=== PATIENT | female | born 1950 | race African-American/Black ===

== ENCOUNTER 2017-02-11 12:53 | Inpatient (IN) | payer OTHER ==
[2017-02-11] MEDS ORDERED: morphine CARPU-JECT 4 MG/1 ML DISP.SYRIN IVPUSH ONE ×3 (13:46→19:00)
[2017-02-11] MEDS ORDERED: morphine CARPU-JECT 4 MG/1 ML DISP.SYRIN ONE ×3 (13:49→19:04)
--- NOTE | 2017-02-11 14:01 | PDOC ---
History of Present Illness - General Chief Complaint: Pain Stated Complaint: HEMATURIA/ABD PAIN/DIARRHEA Time Seen by Provider: 02/11/17 13:06 - History of Present Illness Initial Comments: 02/11/17 14:51 Patient is a 66 year old female with a history of HTN, DM who presents with abdominal pain. Patient reports onset of severe twisting abdominal pain 6 days ago. Since then, she reports worsening pain and abdominal distention. She reports that she last ate solid food 6 days ago and her last solid bowel movement was also 6 days ago. She states that she has been having some diarrhea , but has been only attempting to intake liquids. She also reports some darker colored urine that she was concerned about prompting her visit to the ED today. She endorses some nausea after meals, but denies any fevers, chills, chest pain, SOB, or vomiting. Past History - Past Medical History Allergies/Adverse Reactions: Allergies Allergy/AdvReac Type Severity Reaction Status Date / Time aspirin AdvReac Mild Nausea Unverified 02/11/17 12:59 Penicillins AdvReac Mild Nausea Unverified 02/11/17 12:59 Home Medications: Ambulatory Orders Enalapril Maleate [Vasotec] 20 mg PO DAILY 02/11/17 Hydrochlorothiazide [Hctz -] 25 mg PO DAILY 02/11/17 Metformin HCl 500 mg PO DAILY 02/11/17 Metoprolol Succinate [Toprol Xl -] 25 mg PO DAILY 02/11/17 Diabetes: Yes HTN: Yes - Psycho/Social/Smoking Cessation Hx Suicidal Ideation: No Smoking History: Unknown if ever smoked Information on smoking cessation initiated: No Hx Alcohol Use: No Drug/Substance Use Hx: No Substance Use Type: None Review of Systems - Review of Systems Constitutional: No: Chills, Fever Respiratory: No: Cough, Shortness of Breath Cardiac (ROS): No: Chest Pain, Palpitations, Chest Tightness ABD/GI: Yes: Abdominal Distended, Diarrhea, Nausea, Poor Appetite. No: Rectal Bleeding, Vomiting, Tarry Stools : Yes: Hematuria. No: Dysuria Integumentary: No: Rash Neurological: No: Headache, Numbness, Tingling, Weakness *Physical Exam - Vital Signs Last Vital Signs Temp Pulse Resp BP Pulse Ox 98.2 F 124 H 19 106/42 97 02/11/17 12:57 02/11/17 12:57 02/11/17 12:57 02/11/17 12:57 02/11/17 12:57 - Physical Exam Comments: 02/11/17 15:03 General Appearance: Nourished in Mild Distress HEENT: No Pharyngeal Erythema, Tonsillar Exudate, Tonsillar Erythema Respiratory/Chest: Lungs Clear, Normal Breath Sounds. No Crackles, Rales, Rhonchi, Wheezing Cardiovascular: Regular Rhythm, Regular Rate. No Murmur, Gallop/S3, Gallop/S4 Gastrointestinal/Abdominal: Decreased Bowel Sounds, Distended abdomen with diffuse exquisite tenderness to palpation with guarding Extremity: Normal Capillary Refill Integumentary: Normal Color, Dry, Warm Neurologic: Fully Oriented, Alert, Normal Mood/Affect, Normal Response ED Treatment Course - LABORATORY CBC & Chemistry Diagram: 02/12/17 02:05 02/12/17 02:05 - RADIOLOGY Radiology Studies Ordered: Category Date Time Status ABDOMEN & PELVIS CT WITH CONTR [CT] Stat CT Scan 02/11/17 13:51 Ordered Medical Decision Making - Medical Decision Making 02/11/17 15:04 Patient is a 66 year old female with a history of HTN, DM who presents with abdominal pain and abdominal distention. Differential includes but is not limited to: Obstruction, Illius, Perforation, Pancreatitis, volvulus. Given the patient's physical exam and history of last bowel movement 6 days ago with a distended abdomen, obstruction is high on the differential. However, perforation must be evaluated for as well as volvulus. We will obtain a cbc, cmp, lipase and abdomen CT with contrast to evaluate. Also, given her report of dark urine, we will get a UA to evaluate for hematuria. We will manage the patient's pain appropriately with morphine. 02/11/17 18:51 Patient's cbc demonstrates an elevated wbc to 12.7. We discussed the CT abdomen with the radiologist and it demonstrates free air in the abdomen. We are suspicious that the patient has had a diverticular perforation as the cause of her symptoms. We will consult surgery and admit the patient for treatment. We discussed the results and plan with the patient and she is agreeable to the plan. 02/11/17 18:54 Patient was discussed with surgery (Dr. Villalta) who agrees with admitting the patient and will come to evaluate her. Per Dr. Villalta we placed an NG tube to help with decompression of the bowel and will get films to confirm placement. 02/11/17 18:55 We discussed the patient with Dr. Montero who accepted the patient for admission. *DC/Admit/Observation/Transfer Diagnosis at time of Disposition: Perforation bowel - Discharge Dispostion Condition at time of disposition: Guarded Admit: Yes - Attestations Physician Attestion: 02/11/17 18:56 I, Dr. Umberto Hatfield, attest that this document has been prepared under my direction and personally reviewed by me in its entirety. I further attest, that it accurately reflects all work, treatment, procedures and medical decision -making performed by me.
[2017-02-11 14:16] LABS: MCH 33.1 pg (25.7-33.7); MCHC 33.7 g/dl (32.0-36.0); MEAN CELL VOLUME 98.2 fl (80-96); MEAN PLT VOLUME 8.9 fl (7.5-11.1); PLATELET COUNT 332 K/MM3 (134-434); RDW 15.2 % (11.6-15.6); WHITE BLOOD COUNT 12.8 K/mm3 (4.0-10.0)
[2017-02-11 14:42] LABS: ALBUMIN 2.6 g/dl (3.4-5.0); ALK PHOS 54 U/L (45-117); ANION GAP 14 (8-16); BILIRUBIN,TOTAL 0.6 mg/dL (0.2-1.0); CALCIUM 8.5 mg/dL (8.5-10.1); CO2 24 mmol/L (21-32); CREATININE 1.3 mg/dL (0.55-1.02); GLUCOSE,RANDOM 194 mg/dL (74-106); SGPT/ALT 25 U/L (12-78)
[2017-02-11 14:55] LABS: SGOT/AST 17 U/L (15-37)
[2017-02-11 15:35] LABS: METAMYELOCYTE 1 % (0-2); PLATELET ESTIMATE ADEQUATE (NORMAL)
[2017-02-11] MEDS ORDERED: SODIUM CHLORIDE 0.9% 1000 ML INFUS.BAG IV ONE (15:44)
[2017-02-11] MEDS ORDERED: METRONIDAZOLE 500 MG PREMIXED 100 ML IVPB ONE ×3 (18:15→22:28)
[2017-02-11] MEDS ORDERED: CIPROFLOXACIN 400 MG/D5W 200 ML IVPB ONE (18:15)
[2017-02-11 19:22] LABS: INR 1.29 (0.82-1.09); PROTHROMBIN TIME (PATIENT) 14.3 SEC (9.98-11.88)
[2017-02-11 19:24] LABS: ACTIVATED PTT 29.1 SECONDS (26.9-34.4)
--- NOTE | 2017-02-11 19:26 | PDOC ---
Attending Attestation - Resident Resident Name: AlysiaUmberto - ED Attending Attestation I have performed the following: I have examined & evaluated the patient, The case was reviewed & discussed with the resident, I agree w/resident's findings & plan, Exceptions are as noted - HPI HPI: 02/11/17 19:20 66 yo F with h/o HTN here wtih c/o abd pain x 6 days. also c/o constipation. pain worse with moving. no n/v no blood in stool. no fever chills. no prior abd surgeries. no cough or chest pain. no urinary complaints. - Physicial Exam PE: 02/11/17 19:24 on exam awake alert lungs clear heart RRR no mrg. abd soft distendd. diffusely tender no rebound. ext wwp . no edema. skin warm and dry. - Medical Decision Making 02/11/17 19:24 differential sbo, divertic appy, ulcer, uti pancreaitis. pyleo plan ct a/p labs ua . ivf, pain control ct a/p with free air. likely perf diverticuli d/w dr. rose will admit to dr. hamilton. cirpo and flagyl given . pt inr, type and screen and lactate ordered.
--- NOTE | 2017-02-11 20:19 | CONSULT ---
Consult Consult Specialty:: Surgery Referred by:: Medical and ER - History of Present Illness Chief Complaint: Abdominal pain for one week in lower abdomen. History of Present Illness: C/O lower abdominal pain since last , one week ago. Did not seek medical attention. C/O vomiting as well. She has had colonoscopy about 6 months ago. - History Source History Provided By: Patient, Family Member Limitations to Obtaining History: No Limitations - Past Medical History Cardio/Vascular: Yes: HTN Endocrine: Yes: Diabetes Mellitus - Past Surgical History Past Surgical History: Yes: Hysterectomy - Alcohol/Substance Use Hx Alcohol Use: No - Smoking History Smoking history: Unknown if ever smoked Home Medications - Allergies Allergies/Adverse Reactions: Allergies Allergy/AdvReac Type Severity Reaction Status Date / Time aspirin AdvReac Mild Nausea Unverified 02/11/17 12:59 Penicillins AdvReac Mild Nausea Unverified 02/11/17 12:59 - Home Medications Home Medications: Ambulatory Orders Enalapril Maleate [Vasotec] 20 mg PO DAILY 02/11/17 Hydrochlorothiazide [Hctz -] 25 mg PO DAILY 02/11/17 Metformin HCl 500 mg PO DAILY 02/11/17 Metoprolol Succinate [Toprol Xl -] 25 mg PO DAILY 02/11/17 Physical Exam Vital Signs: Vital Signs Temperature 98.2 F 02/11/17 12:57 Pulse Rate 121 H 02/11/17 14:15 Respiratory Rate 18 02/11/17 14:15 Blood Pressure 99/77 02/11/17 14:15 O2 Sat by Pulse Oximetry (%) 96 02/11/17 14:15 Gastrointestinal: Yes: Abdomen, Obese (Obese abdomen , diffusely tender and guarding with rigidity.) Imaging - Results Cat Scan: Report Reviewed, Image Reviewed Problem List - Problems (1) Perforation bowel Code(s): K63.1 - PERFORATION OF INTESTINE (NONTRAUMATIC) (2) Acute abdomen Code(s): R10.0 - ACUTE ABDOMEN (3) Obesity Code(s): E66.9 - OBESITY, UNSPECIFIED Qualifiers: (4) Diabetes mellitus Code(s): E11.9 - TYPE 2 DIABETES MELLITUS WITHOUT COMPLICATIONS Assessment/Plan Acute perforated diverticulitis with peritonotis. Paln : Hydrate , antibiotics, laparotomy , possible bowel resection , colostomy. Patient and her daughter have been explained , with risks, benefits and complications, also related to her obesity , diabetes. etc
[2017-02-11] MEDS ORDERED: ONDANSETRON 4 MG/2 ML VIAL IVPUSH PRN ×2 (21:24→21:50)
[2017-02-11] MEDS ORDERED: DEXTROSE 5%-0.45% SALINE 1,000 ML IV SCH (21:30)
[2017-02-11 21:46] LABS: URINE APPEARANCE CLOUDY; URINE BLOOD NEGATIVE (NEGATIVE); URINE COLOR AMBER; URINE GLUCOSE (UA) 1+ (NEGATIVE); URINE KETONE TRACE (NEGATIVE); URINE LEUK ESTERASE NEGATIVE (NEGATIVE); URINE NITRITE NEGATIVE (NEGATIVE); URINE UROBILINOGEN NEGATIVE mg/dL (0.2-1.0)
[2017-02-11] MEDS ORDERED: PROMETHAZINE HCL 25 MG/1 ML VIAL IVPUSH PRN (21:50)
[2017-02-11 21:51] LABS: URINE PROTEIN 2+ (NEGATIVE)
[2017-02-11 21:53] LABS: URINE BACTERIA MANY /hpf (NONE SEEN); URINE HYALINE CAST 18 /lpf; URINE MUCUS MANY; URINE RBC 7 /hpf (0-3); URINE WBC 20 /hpf (3-5)
[2017-02-11] MEDS ORDERED: LACTATED RINGERS SOLUTION 1,000 ML IV SCH (22:00)
[2017-02-11] MEDS ORDERED: ROCURONIUM BROMIDE 50 MG/5 ML VIAL ONE (22:11)
[2017-02-11] MEDS ORDERED: LEVOFLOXACIN 500 MG PREMIX BAG IVPB ONE (22:20)
[2017-02-11] MEDS ORDERED: LEVOFLOXACIN 500 MG IVPB 100 ML IVPB ONE (22:26)
[2017-02-12] MEDS ORDERED: ROCURONIUM BROMIDE 50 MG/5 ML VIAL ONE (00:19)
[2017-02-12] MEDS ORDERED: PROPOFOL 100 ML ONE (00:45)
[2017-02-12] MEDS ORDERED: MIDAZOLAM HCL 2 MG/2 ML SINGLE DOSE VIAL ONE (00:51)
[2017-02-12] MEDS ORDERED: ACETAMINOPHEN INJECTION 100 ML IVPB ONE (01:46)
[2017-02-12] MEDS ORDERED: ACETAMINOPHEN 1000 MG/100 ML VIAL (NON FORMULARY) IVPB ONE ×2 (01:50→02:00)
--- NOTE | 2017-02-12 01:55 | OP ---
Operative Note - Note: Operative Date: 02/12/17 Pre-Operative Diagnosis: Peritonitis, acute abdomen, perforated viscus, intraabdominal abscess, sepsis, moebid obesity. Operation: Laparotomy, sigmoid resection , mobilisation of splenic flexure of colon, colorectal anastamosis, transverse loop colostomy,. drainage of multiple intraabdominal abscesses x3, peritoneal washout,. omentectomy , lysis of adhesions. Findings: 1.Perforation of sigmoid colon , 2.with acute diverticulitis, 3.multiple intraabdominal abscesses, , a) interloop abscess bounded by small bowel, b) pelvic abscess, c) posterior abdominal abscess. 4. necrotic and ischemic omentum 5 Peritoneal adhesions. Post-Operative Diagnosis: Other (perforated diverticulitis with multiple intraabdominal absceses, adhesions, edematous intestine, throughout, small intestine, descending colon, multiple adhesions , abdominal obesity.) Surgeon: Luciana Villalta Hiv Counselor: Willow Ivy Anesthesiologist/BURR GRINDER: Tho Metcalf Anesthesia: General Specimens Removed: Sigmoid colon with perforation , necrotic debris of abscess. Estimated Blood Loss (mls): 250
[2017-02-12] MEDS ORDERED: HYDROmorphone HCL CARPU-JECT 1 MG/1 ML DISP.SYRIN IVPUSH PRN (02:02)
[2017-02-12] MEDS ORDERED: LACTATED RINGERS SOLUTION 1,000 ML IV SCH (02:04)
[2017-02-12 02:24] LABS: ARTERIAL BLD GAS O2 SATURATION 99.9 % (90-98.9); ARTERIAL BLOOD GAS BASE EXCESS -3.9 meq/l (-2-2); ARTERIAL BLOOD GAS HCO3 22.5 meq/L (22-26); ARTERIAL BLOOD GAS pH 7.28 (7.35-7.45)
[2017-02-12 02:26] LABS: ALLENS TEST POSITIVE; ART PUNCT SITE RIGHT RADIAL; LPM/O2% 100%; MECH. VENT. Y; PT. ON O2? YES; TYPE OF O2 VENT; VENT RATE 10; VT/PRESS 500
[2017-02-12 02:30] LABS: MCH 32.6 pg (25.7-33.7); MEAN CELL VOLUME 98.8 fl (80-96); MEAN PLT VOLUME 9.1 fl (7.5-11.1); RDW 15.1 % (11.6-15.6); WHITE BLOOD COUNT 8.7 K/mm3 (4.0-10.0)
--- NOTE | 2017-02-12 02:30 | CONSULT ---
Consult Consult Specialty:: PULM / CCM Referred by:: Dr. Neida Montero Reason for Consultation:: Abd Sepsis - History of Present Illness Chief Complaint: Bowel Perf History of Present Illness: BRIEF ICU ADMIT NOTE: (ALL HANDS WRKNG): This is a 66 y/o woman, HTN, DMII, Et-OH, & tobacc who arrives in the ICU @ 0230Hrs this AM (ED --> OR --> ICU) s/p emergent abd surgery for bowel perf (Villalta ) ( limited data). Pt is intubated, in shock, requiring full Post-Op resuscitation. - History Source History Provided By: Medical Record Limitations to Obtaining History: Intubated - Past Medical History Cardio/Vascular: Yes: HTN Endocrine: Yes: Diabetes Mellitus - Past Surgical History Past Surgical History: Yes: Hysterectomy - Alcohol/Substance Use Hx Alcohol Use: Yes Number of Drinks Daily: 3 History of Substance Use: reports: None - Smoking History Smoking history: Current every day smoker Have you smoked in the past 12 months: Yes - Social History Usual Living Arrangement: Alone ADL: Independent History of Recent Travel: No Home Medications - Allergies Allergies/Adverse Reactions: Allergies Allergy/AdvReac Type Severity Reaction Status Date / Time aspirin AdvReac Mild Nausea Unverified 02/11/17 12:59 Penicillins AdvReac Mild Nausea Unverified 02/11/17 12:59 - Home Medications Home Medications: Ambulatory Orders Enalapril Maleate [Vasotec] 20 mg PO DAILY 02/11/17 Hydrochlorothiazide [Hctz -] 25 mg PO DAILY 02/11/17 Metformin HCl 500 mg PO DAILY 02/11/17 Metoprolol Succinate [Toprol Xl -] 25 mg PO DAILY 02/11/17 Family Disease History - Family Disease History Family History: Unable to Obtain (Sedated & intubated.) Review of Systems Unable to obtain ROS, reason: Sedated & intubated. Physical Exam Vital Signs: Vital Signs Temperature 98.2 F 02/11/17 12:57 Pulse Rate 121 H 02/11/17 14:15 Respiratory Rate 13 02/12/17 02:24 Blood Pressure 99/77 02/11/17 14:15 O2 Sat by Pulse Oximetry (%) 96 02/11/17 14:15 Constitutional: Yes: Well Nourished, No Distress, Calm Eyes: Yes: WNL, Conjunctiva Clear, EOM Intact HENT: Yes: WNL, Atraumatic, Normocephalic Neck: Yes: WNL, Supple, Trachea Midline Cardiovascular: Yes: WNL, Regular Rate and Rhythm Respiratory: Yes: WNL, Regular, CTA Bilaterally Gastrointestinal: Yes: Abdomen, Obese, Distention, Hypoactive Bowel Sounds, Tenderness, Tenderness, Epigastrium, Tenderness, Rebound, Other (s/p Ex-Lap w/ R UQ colostomy. Colostomy looks pink & healthy.) ...Rectal Exam: Yes: Deferred Renal/: Yes: WNL Breast(s): Yes: WNL Musculoskeletal: Yes: WNL Extremities: Yes: WNL Edema: Yes Edema: LUE: 2+, RUE: 2+, LLE: 2+, RLE: 2+ Peripheral Pulses WNL: Yes Integumentary: Yes: WNL Wound/Incision: Yes: Clean/Dry, Well Approximated, Sutures Intact, [place] Intact, Dressing Dry and Intact Neurological: Yes: Unresponsive ...Motor Strength: WNL Psychiatric: Yes: WNL, Oriented Labs: CBC, BMP 02/12/17 02:05 02/12/17 02:05 Intake & Output 02/09/17 02/10/17 02/11/17 02/12/17 23:59 23:59 23:59 23:59 Intake Total 6000 Output Total 400 100 Balance 5600 -100 Weight 83.915 kg 85.6 kg Imaging - Results Chest X-ray: Image Reviewed (ETT in good position, no PTX, clear (My Read).) EKG: Image Reviewed (12-LEAD 02/11: RSR in the 1-teens w/o ectopy, normal axis, no ST or T-wave aberrations, QTc = 493ms, no acute processes (My Read).) Problem List - Problems (1) Acute abdomen Code(s): R10.0 - ACUTE ABDOMEN (2) Diabetes mellitus Code(s): E11.9 - TYPE 2 DIABETES MELLITUS WITHOUT COMPLICATIONS (3) Obesity Code(s): E66.9 - OBESITY, UNSPECIFIED Qualifiers: Obesity type: due to excess calories (4) Perforation bowel Code(s): K63.1 - PERFORATION OF INTESTINE (NONTRAUMATIC) (5) Septic shock Code(s): A41.9 - SEPSIS, UNSPECIFIED ORGANISM R65.21 - SEVERE SEPSIS WITH SEPTIC SHOCK Assessment/Plan ASSESS: This is a 66 y/o woman w/ HTN, DM, Et-OH, & Tobacc s/p emergent Abd Surgery for surgical Abd in the ED Ex-Lap remark for perforated viscus, drainage of multiple intra-abd abscesses, sigmoid resect, colorectal anastamosis , & transverse loop colostomy. Pt presents to the ICU now Pos-Op in imminent Severe Abd Sepsis. A/P OR TEAM: multiple intra-abd abscesses have just been instrumented PREPARE FOR SEVERE SEPTIC SHOCK DO NOT WAKE UP DO NOT EXTUBATE WAIT FOR CRITICAL CARE ATTENDING PHYSICIAN PLAN: -NPO -Cont Vent -Deep sedation -DO NOT EXTUBATE until out of shock -HOB > 30 -Nebs -Abd Sepsis Abx -F/U Clxrs -ID -CVC -IVFs for a CVP of 14 on the Vent -Press for a MAP of 65 -Trend LA -Normal Transfusion thresholds -Check bladder pressure -Strict I's & O's -Trend BUN/Cr -Replete e-lytes prn -Pepcid -SQH -SCDs -F/u w/ Surgery -Call Family, secure Goals of Care DGL [id number] [facility] PULM / CCM
[2017-02-12] MEDS ORDERED: PROPOFOL 1000 MG/100 ML VIAL IVPB ONE (02:37)
[2017-02-12 02:59] LABS: ALBUMIN 1.4 g/dl (3.4-5.0); ALK PHOS 37 U/L (45-117); ANION GAP 9 (8-16); BILIRUBIN,TOTAL 0.6 mg/dL (0.2-1.0); CALCIUM 7.1 mg/dL (8.5-10.1); CO2 26 mmol/L (21-32); CREATININE 1.3 mg/dL (0.55-1.02); GLUCOSE,RANDOM 164 mg/dL (74-106); SGOT/AST 20 U/L (15-37); SGPT/ALT 16 U/L (12-78); TOT PROT 4.1 g/dl (6.4-8.2)
[2017-02-12 03:20] LABS: PLATELET COUNT 339 K/MM3 (134-434)
[2017-02-12 03:21] LABS: METAMYELOCYTE 3 % (0-2); PLATELET COMMENT2 MOD LARGE PLTS; PLATELET COMMENT3 FEW GIANT PLTS; PLATELET ESTIMATE ADEQUATE (NORMAL)
[2017-02-12] MEDS ORDERED: SODIUM CHLORIDE 1,000 ML IV SCH (03:30)
[2017-02-12 03:51] VITALS: BMI 28.7
[2017-02-12] MEDS: PROPOFOL 100 ML IVPB SCH ×4 (03:56→21:55)
[2017-02-12] MEDS: METRONIDAZOLE 500 MG PREMIXED 100 ML IVPB SCH ×2 (03:59→09:32)
[2017-02-12] MEDS ORDERED: LACTATED RINGERS SOLUTION 1,000 ML IV ONE ×3 (04:00→06:00)
[2017-02-12] MEDS ORDERED: NOREPINEPHRINE BITARTRATE 4 MG/4 ML ML IV ONE (05:49)
--- NOTE | 2017-02-12 06:17 | PROC ---
Central Line Insertion Indication: CVP Monitoring, Sepsis, Vasopressor Risks and Benefits Explained: Yes Consent on Chart: Yes Central Line: Triple Lumen Catheter Anesthesia: 1% Lidocaine Sterile Technique: Yes Ultrasound Guided Assistance: Yes Position: Left Internal Jugular Post Insertion: Yes: Bilateral Breath Sounds, Chest X-Ray Ordered Sterile Dressing Applied: Yes
[2017-02-12] MEDS ORDERED: VANCOMYCIN 1,250 MG in DEXTROSE 5%-WATER - 250 ML IVPB STA (06:26)
[2017-02-12] MEDS: NOREPINEPHRINE BITARTRATE 4,000 MCG in DEXTROSE 5%-WATER - 496 ML IV SCH (06:54)
[2017-02-12 07:12] LABS: BASOPHIL 0.1 % (0-2.0); MCH 33.3 pg (25.7-33.7); MCHC 33.7 g/dl (32.0-36.0); MEAN CELL VOLUME 98.9 fl (80-96); MEAN PLT VOLUME 9.3 fl (7.5-11.1); NEUTROPHILS 88.2 % (42.8-82.8); PLATELET COUNT 317 K/MM3 (134-434); RDW 14.8 % (11.6-15.6); WHITE BLOOD COUNT 9.2 K/mm3 (4.0-10.0)
[2017-02-12 07:54] LABS: ALBUMIN 1.1 g/dl (3.4-5.0); ALK PHOS 28 U/L (45-117); ANION GAP 9 (8-16); BILIRUBIN,TOTAL 0.9 mg/dL (0.2-1.0); CO2 22 mmol/L (21-32); CREATININE 0.8 mg/dL (0.55-1.02); GLUCOSE,RANDOM 148 mg/dL (74-106); SGOT/AST 16 U/L (15-37); SGPT/ALT 14 U/L (12-78); TOT PROT 3.4 g/dl (6.4-8.2)
[2017-02-12 08:20] LABS: MAGNESIUM 2.3 mg/dL (1.8-2.4)
[2017-02-12 08:26] LABS: CALCIUM 6.1 mg/dL (8.5-10.1)
[2017-02-12 08:35] LABS: ARTERIAL BLD GAS O2 SATURATION 99.2 % (90-98.9); ARTERIAL BLOOD GAS BASE EXCESS -4.7 meq/l (-2-2); ARTERIAL BLOOD GAS HCO3 18.7 meq/L (22-26); ARTERIAL BLOOD GAS pH 7.39 (7.35-7.45)
[2017-02-12 08:36] LABS: ALLENS TEST POSITIVE; ART PUNCT SITE RIGHT RADIAL; LPM/O2% 50; MECH. VENT. YES; PT. ON O2? YES; TYPE OF O2 VENT; VENT RATE 14; VT/PRESS 500
--- NOTE | 2017-02-12 09:12 | PN ---
Physical Exam: SUBJECTIVE: 65 year old female with a past medical history of HTN, DMII presented to the ED with abdominal pain x6 day duration. She reported progressive distention and minimal bowel movements as well as nausea after meals. CT abdomen showed free air in the abdomen. She was diagnosed with bowel perforation 2/2 acute diverticulitis and sent to the OR under Dr. Villalta for an exploratory laporatomy. A sigmoid resection was performed as well as drainage of multiple intraabdominal abscesses. Pt was sent to ICU at 2:30am post op. Pt was hypotensive, a central line was placed and levophed was started. MAP has been 78 -81. Pt is sedated and is unarousable for questions. OBJECTIVE: Vital Signs Period Temp Pulse Resp BP Sys/[place] Pulse Ox Last 24 Hr 97.6 F-98.7 F 78-102 10-19 71-165/47-102 100-100 GENERAL: The patient is sedated, unarousable, and breathing on vent HEAD: Normal with no signs of trauma. EYES: PERRL, extraocular movements unable to be assessed sclera anicteric, conjunctiva clear. No ptosis. ENT: Ears normal, nares patent, Endotracheal tube present membranes. NECK: Trachea midline, full range of motion, supple. LUNGS: Breath sounds equal, pt is intubated breathing on vent HEART: Regular rate and rhythm, S1, S2 without murmur, rub or gallop. ABDOMEN: mildly distended, hypoactive bowel sounds, surgical dressing is noted over incision site EXTREMITIES: 2+ pulses, cool extremities NEUROLOGICAL: Cranial nerves II through XII unable to be assessed PSYCH: unable to assess SKIN: cool extremities, dry, normal turgor, no rashes, surgical scar present in the mid abdomen Laboratory Results - last 24 hr 02/11/17 02/12/17 02/12/17 21:32 02:05 02:05 WBC 8.7 D RBC 4.22 Hgb 13.7 Hct 41.6 MCV 98.8 H MCH 32.6 MCHC 33.0 RDW 15.1 Plt Count 339 MPV 9.1 Neutrophils % 65.0 D Lymphocytes % 12.0 D Monocytes % 10.0 Eosinophils % Basophils % Band Neutrophils 10.0 D Metamyelocytes 3 H D Platelet Estimate Adequate Platelet Comment Mod large plts Puncture Site ABG pH ABG pCO2 at Pt Temp ABG pO2 at Pt Temp ABG HCO3 ABG O2 Sat (Measured) ABG O2 Content ABG Base Excess Cole Test O2 Delivery Device Oxygen Flow Rate Vent Mode Vent Rate Mechanical Rate PEEP Pressure Support Vent Sodium 134 L Potassium 4.3 Chloride 99 Carbon Dioxide 26 Anion Gap 9 BUN 21 H Creatinine 1.3 H Creat Clearance w eGFR 41.11 Random Glucose 164 H Calcium 7.1 L Phosphorus Magnesium Total Bilirubin 0.6 AST 20 ALT 16 D Alkaline Phosphatase 37 L D Total Protein 4.1 L D Albumin 1.4 L D Urine Color Delia Urine Appearance Cloudy Urine pH 5.0 Urine Protein 2+ H Urine Glucose (UA) 1+ H Urine Ketones Trace H Urine Blood Negative Urine Nitrite Negative Urine Bilirubin 2.0 Urine Urobilinogen Negative Ur Leukocyte Esterase Negative Urine RBC 7 Urine WBC 20 Ur Epithelial Cells Many Urine Bacteria Many Hyaline Casts 18 Urine Mucus Many 02/12/17 02/12/17 02/12/17 02:20 06:00 06:00 WBC 9.2 RBC 3.36 L D Hgb 11.2 D Hct 33.3 D MCV 98.9 H MCH 33.3 MCHC 33.7 RDW 14.8 Plt Count 317 MPV 9.3 Neutrophils % 88.2 H D Lymphocytes % 5.1 L D Monocytes % 6.6 Eosinophils % 0.0 Basophils % 0.1 Band Neutrophils Metamyelocytes Platelet Estimate Platelet Comment Puncture Site Right radial ABG pH 7.28 L ABG pCO2 at Pt Temp 49.0 H ABG pO2 at Pt Temp 408.0 H* ABG HCO3 22.5 ABG O2 Sat (Measured) 99.9 H* ABG O2 Content 18.6 ABG Base Excess -3.9 L Cole Test Positive O2 Delivery Device Vent Oxygen Flow Rate 100% Vent Mode Ac Vent Rate 10 Mechanical Rate Y PEEP Pressure Support Vent 500 Sodium 137 Potassium 3.6 Chloride 106 Carbon Dioxide 22 Anion Gap 9 BUN 17 Creatinine 0.8 D Creat Clearance w eGFR > 60 Random Glucose 148 H Calcium 6.1 L* Phosphorus 3.0 Magnesium 2.3 Total Bilirubin 0.9 D AST 16 ALT 14 Alkaline Phosphatase 28 L D Total Protein 3.4 L Albumin 1.1 L D Urine Color Urine Appearance Urine pH Urine Protein Urine Glucose (UA) Urine Ketones Urine Blood Urine Nitrite Urine Bilirubin Urine Urobilinogen Ur Leukocyte Esterase Urine RBC Urine WBC Ur Epithelial Cells Urine Bacteria Hyaline Casts Urine Mucus 02/12/17 08:20 WBC RBC Hgb Hct MCV MCH MCHC RDW Plt Count MPV Neutrophils % Lymphocytes % Monocytes % Eosinophils % Basophils % Band Neutrophils Metamyelocytes Platelet Estimate Platelet Comment Puncture Site Right radial ABG pH 7.39 ABG pCO2 at Pt Temp 31.4 L D ABG pO2 at Pt Temp 165.0 H* ABG HCO3 18.7 L ABG O2 Sat (Measured) 99.2 H ABG O2 Content 19.6 ABG Base Excess -4.7 L Cole Test Positive O2 Delivery Device Vent Oxygen Flow Rate 50 Vent Mode A/c Vent Rate 14 Mechanical Rate Yes PEEP 0.0 Pressure Support Vent 500 Sodium Potassium Chloride Carbon Dioxide Anion Gap BUN Creatinine Creat Clearance w eGFR Random Glucose Calcium Phosphorus Magnesium Total Bilirubin AST ALT Alkaline Phosphatase Total Protein Albumin Urine Color Urine Appearance Urine pH Urine Protein Urine Glucose (UA) Urine Ketones Urine Blood Urine Nitrite Urine Bilirubin Urine Urobilinogen Ur Leukocyte Esterase Urine RBC Urine WBC Ur Epithelial Cells Urine Bacteria Hyaline Casts Urine Mucus Active Medications Generic Name Dose Route Start Last Admin Trade Name Freq PRN Reason Stop Dose Admin Fentanyl 50 mcg 02/11/17 21:50 02/12/17 03:57 Sublimaze Injection - IVPUSH 02/14/17 21:51 50 mcg [id number] PRN Administration PAIN Fentanyl 100 mcg 02/12/17 08:22 Sublimaze Injection - IVPUSH 02/12/17 08:23 ONCE ONE Hydromorphone HCl 1 mg 02/12/17 02:02 Dilaudid Injection - IVPUSH Q4H PRN PAIN Metronidazole 100 mls @ 100 mls/hr 02/12/17 02:00 02/12/17 03:59 Flagyl 500mg Premixed Ivpb - IVPB 100 mls/hr Q8H-IV RAF Administration Levofloxacin 100 mls @ 100 mls/hr 02/12/17 10:00 Levaquin 500 Mg Premixed Ivpb - IVPB DAILY RAF Propofol 100 mls @ 2.517 mls/hr 02/12/17 02:00 02/12/17 03:56 Diprivan - IVPB 02/14/17 01:59 15.105 mls/hr TITR RAF Administration Protocol 5 MCG/KG/MIN Sodium Chloride 1,000 mls @ 150 mls/hr 02/12/17 03:30 02/12/17 03:00 Normal Saline - IV 150 mls/hr ASDIR RAF Administration Norepinephrine Bitartrate 4, 500 mls @ 37.5 mls/hr 02/12/17 06:30 02/12/17 06: 54 000 mcg/ Dextrose IV 66 mls/hr TITR RAF Administration Protocol 5 MCG/MIN Fentanyl 500 mcg/ Dextrose 100 mls @ 20 mls/hr 02/12/17 06:30 IJ TITR RAF 100 MCG/HR Potassium Chloride 100 mls @ 100 mls/hr 02/12/17 09:00 Potassium Chloride 10 Meq Premix Ivpb - IVPB 02/12/17 11:59 Q60M RAF Insulin Aspart 1 vial 02/11/17 22:00 Novolog Vial Sliding Scale - SQ ACHS RAF Protocol Morphine Sulfate 4 mg 02/11/17 21:24 Morphine Injection - IVPUSH Q6H PRN PAIN Ondansetron HCl 4 mg 02/11/17 21:24 Zofran Injection IVPUSH Q6H PRN NAUSEA AND/OR VOMITING Imaging: CT Abd (02/11): acute diverticulitis in mid sigmoid colon w/ perforation and extraluminal air collection along its medial margin measuring 5cm with a small air fluid level. Significant amount of free air in upper abdomen and scattered extraluminal air pockets. Significant surrounding inflammatory changes/ mesenteric edema extending to the mid-abdomen with a small amount of free fluid. Proximal bowel loops are slightly dilated suggestive of a possible partial small bowel obstruction CXR (02/12): NG tube and ET tube are in place, no pneumothorax. ASSESSMENT/PLAN: 66 year old female pmh HTN and DMII s/p exploratory laparotomy with sigmoid resection and drainage of multiple abdominal abscesses in the ICU with hypotension, SOB. Neuro: pt s/p surgery on sedation -continue propofol 40 for sedation -continue zofran PRN -fentanyl PRN pain Cardiovascular: Pt with a hx of diabetes and HTN, currently normotensive with a MAP of 85 on levophed -continue levophed -change fluids to D5NS w/ potassium -measure CVP -trend lactic acid Pulmonary: acute respiratory failure, pt on vent - pt is a smoker -decrease FiO2, keep other vent settings Gastrointestinal: pt s/p exploratory laparotomy for bowel perforation and multiple abscess drainage with sigmoid resection and transverse loop colostomy -NPO -f/u with dr. Villalta ID: suspected sepsis -continue abx as per ID FEN: -change fluids to D5NS w/ potassium @ 100 -strict I's and O's -NPO Proph: -VTE prophylaxis Dispo: -continue to monitor in the ICU Problem List - Problems (1) Perforation bowel Code(s): K63.1 - PERFORATION OF INTESTINE (NONTRAUMATIC) (2) Septic shock Code(s): A41.9 - SEPSIS, UNSPECIFIED ORGANISM R65.21 - SEVERE SEPSIS WITH SEPTIC SHOCK Visit type - Emergency Visit Emergency Visit: No - New Patient This patient is new to me today: Yes Date on this admission: 02/12/17 - Critical Care Critical Care patient: Yes Total Critical Care Time (in minutes): 45 Critical Care Statement: The care of this patient involved high complexity decision making to prevent further life threatening deterioration of the patient 's condition and/or to evalute & treat vital organ system(s) failure or risk of failure.
[2017-02-12] MEDS: FENTANYL INJECTION 500 MCG in DEXTROSE 5%-WATER - 90 ML IJ SCH ×5 (09:37→21:50)
[2017-02-12] MEDS ORDERED: LEVOFLOXACIN 500 MG IVPB 100 ML IVPB SCH (10:00)
--- NOTE | 2017-02-12 10:01 | EKG ---
Test Reason : Blood Pressure : / mmHG Vent. Rate : 083 BPM Atrial Rate : 083 BPM P-R Int : 150 ms QRS Dur : 076 ms QT Int : 466 ms P-R-T Axes : 062 000 038 degrees QTc Int : 547 ms NORMAL SINUS RHYTHM PROLONGED QT ABNORMAL ECG WHEN COMPARED WITH ECG OF 11-FEB-2017 20:49, NO SIGNIFICANT CHANGE WAS FOUND Confirmed by CATHY VASQUEZ MD ([id number]) on 02/12/2017 10:01:30 AM Referred By: Confirmed By:CATHY VASQUEZ MD
[2017-02-12] MEDS: KCL 10 MEQ IVPB 100 ML IVPB SCH ×3 (10:15→14:00)
--- NOTE | 2017-02-12 10:22 | EKG ---
Test Reason : Blood Pressure : / mmHG Vent. Rate : 114 BPM Atrial Rate : 114 BPM P-R Int : 154 ms QRS Dur : 084 ms QT Int : 358 ms P-R-T Axes : -02 -09 050 degrees QTc Int : 493 ms SINUS TACHYCARDIA NONSPECIFIC ST ABNORMALITY INCOMPLETE RBBB Confirmed by CATHY VASQUEZ MD ([id number]) on 02/12/2017 10:22:34 AM Referred By: Confirmed By:CATHY VASQUEZ MD
--- NOTE | 2017-02-12 11:55 | PN ---
Teaching Attending Note Name of Resident: Melchor Merrill ATTENDING PHYSICIAN STATEMENT I saw and evaluated the patient. I reviewed the resident's note and discussed the case with the resident. I agree with the resident's findings and plan as documented. SUBJECTIVE: Patient seen and examined in the ICU. Intubated and sedated. NE for hemodynamic support. CXR: ETT in position / no acute pathology Intake & Output 02/09/17 02/10/17 02/11/17 02/12/17 23:59 23:59 23:59 23:59 Intake Total 6000 3720 Output Total 400 100 Balance 5600 3620 Weight 185 lb 188 lb 11.451 oz Last Vital Signs Temp Pulse Resp BP Pulse Ox 97.6 F 83 18 91/74 99 02/12/17 06:00 02/12/17 10:53 02/12/17 09:20 02/12/17 07:00 02/12/17 10:53 Active Medications Metronidazole (Flagyl 500mg Premixed Ivpb -) 100 mls @ 100 mls/hr IVPB Q8H-IV RAF Last Admin: 02/12/17 09:32 Dose: 100 mls/hr Levofloxacin (Levaquin 500 Mg Premixed Ivpb -) 100 mls @ 100 mls/hr IVPB DAILY RAF Last Admin: 02/12/17 09:33 Dose: 100 mls/hr Propofol (Diprivan -) 100 mls @ 2.517 mls/hr IVPB TITR RAF; 5 MCG/KG/MIN PRN Reason: Protocol Stop: 02/14/17 01:59 Last Admin: 02/12/17 03:56 Dose: 15.105 mls/hr Norepinephrine Bitartrate 4, (000 mcg/ Dextrose) 500 mls @ 37.5 mls/hr IV TITR RAF; 5 MCG/MIN PRN Reason: Protocol Last Admin: 02/12/17 06:54 Dose: 66 mls/hr Fentanyl 500 mcg/ Dextrose 100 mls @ 20 mls/hr IJ TITR RAF PRN Reason: 100 MCG/HR Last Admin: 02/12/17 09:37 Dose: 20 mls/hr Potassium Chloride (Potassium Chloride 10 Meq Premix Ivpb -) 100 mls @ 100 mls/ hr IVPB Q60M RAF Stop: 02/12/17 12:59 Last Admin: 02/12/17 10:15 Dose: 100 mls/hr Potassium Chloride 10 meq/ (Dextrose/Sodium Chloride) 1,005 mls @ 100 mls/hr IVPB ASDIR RAF Insulin Aspart (Novolog Vial Sliding Scale -) 1 vial SQ ACHS RAF PRN Reason: Protocol Morphine Sulfate (Morphine Injection -) 4 mg IVPUSH Q6H PRN PRN Reason: PAIN Ondansetron HCl (Zofran Injection) 4 mg IVPUSH Q6H PRN PRN Reason: NAUSEA AND/OR VOMITING Constitutional: Yes: Intubated and sedated. Eyes: Yes: WNL, Conjunctiva Clear, EOM Intact HENT: Yes: WNL, Atraumatic, Normocephalic Neck: Yes: WNL, Supple, Trachea Midline Cardiovascular: Yes: WNL, Regular Rate and Rhythm Respiratory: Yes: WNL, Regular, CTA Bilaterally Gastrointestinal: Yes: Abdomen, Obese, Distention, Hypoactive Bowel Sounds, S/P Ex-Lap w/ RUQ colostomy. Colostomy looks pink & healthy. ...Rectal Exam: Yes: Deferred Renal/: Yes: WNL Breast(s): Yes: WNL Musculoskeletal: Yes: WNL Extremities: Yes: WNL Edema: Yes Edema: LUE: 2+, RUE: 2+, LLE: 2+, RLE: 2+ Peripheral Pulses WNL: Yes Integumentary: Yes: WNL Wound/Incision: Yes: Clean/Dry, Well Approximated, Sutures Intact, [place] Intact, Dressing Dry and Intact Neurological: Yes: Unresponsive ...Motor Strength: WNL Psychiatric: Yes: WNL, Oriented Labs: Laboratory Results - last 24 hr 02/11/17 02/11/17 02/11/17 14:00 14:00 18:52 WBC 12.8 H RBC 4.41 Hgb 14.6 Hct 43.3 MCV 98.2 H MCH 33.1 MCHC 33.7 RDW 15.2 Plt Count 332 MPV 8.9 Neutrophils % 82.0 Lymphocytes % 4.0 L Monocytes % 8.0 Eosinophils % Basophils % Band Neutrophils 4.0 Metamyelocytes 1 Myelocytes 1 Differential Comment Manual diff done Platelet Estimate Adequate Platelet Comment INR 1.29 H PTT (Actin FS) 29.1 Puncture Site ABG pH ABG pCO2 at Pt Temp ABG pO2 at Pt Temp ABG HCO3 ABG O2 Sat (Measured) ABG O2 Content ABG Base Excess Cole Test O2 Delivery Device Oxygen Flow Rate Vent Mode Vent Rate Mechanical Rate PEEP Pressure Support Vent Sodium 134 L Potassium 3.6 Chloride 96 L Carbon Dioxide 24 Anion Gap 14 BUN 21 H Creatinine 1.3 H Creat Clearance w eGFR 41.11 Random Glucose 194 H Lactic Acid Calcium 8.5 Phosphorus Magnesium Total Bilirubin 0.6 AST 17 ALT 25 Alkaline Phosphatase 54 Total Protein 7.0 Albumin 2.6 L Lipase 50 L Urine Color Urine Appearance Urine pH Urine Protein Urine Glucose (UA) Urine Ketones Urine Blood Urine Nitrite Urine Bilirubin Urine Urobilinogen Ur Leukocyte Esterase Urine RBC Urine WBC Ur Epithelial Cells Urine Bacteria Hyaline Casts Urine Mucus Blood Type Antibody Screen 02/11/17 02/11/17 02/11/17 18:52 18:52 21:32 WBC RBC Hgb Hct MCV MCH MCHC RDW Plt Count MPV Neutrophils % Lymphocytes % Monocytes % Eosinophils % Basophils % Band Neutrophils Metamyelocytes Myelocytes Differential Comment Platelet Estimate Platelet Comment INR PTT (Actin FS) Puncture Site ABG pH ABG pCO2 at Pt Temp ABG pO2 at Pt Temp ABG HCO3 ABG O2 Sat (Measured) ABG O2 Content ABG Base Excess Cole Test O2 Delivery Device Oxygen Flow Rate Vent Mode Vent Rate Mechanical Rate PEEP Pressure Support Vent Sodium Potassium Chloride Carbon Dioxide Anion Gap BUN Creatinine Creat Clearance w eGFR Random Glucose Lactic Acid 1.7 Calcium Phosphorus Magnesium Total Bilirubin AST ALT Alkaline Phosphatase Total Protein Albumin Lipase Urine Color Delia Urine Appearance Cloudy Urine pH 5.0 Urine Protein 2+ H Urine Glucose (UA) 1+ H Urine Ketones Trace H Urine Blood Negative Urine Nitrite Negative Urine Bilirubin 2.0 Urine Urobilinogen Negative Ur Leukocyte Esterase Negative Urine RBC 7 Urine WBC 20 Ur Epithelial Cells Many Urine Bacteria Many Hyaline Casts 18 Urine Mucus Many Blood Type B POSITIVE Antibody Screen Negative 02/12/17 02/12/17 02/12/17 02:05 02:05 02:20 WBC 8.7 D RBC 4.22 Hgb 13.7 Hct 41.6 MCV 98.8 H MCH 32.6 MCHC 33.0 RDW 15.1 Plt Count 339 MPV 9.1 Neutrophils % 65.0 D Lymphocytes % 12.0 D Monocytes % 10.0 Eosinophils % Basophils % Band Neutrophils 10.0 D Metamyelocytes 3 H D Myelocytes Differential Comment Platelet Estimate Adequate Platelet Comment Mod large plts INR PTT (Actin FS) Puncture Site Right radial ABG pH 7.28 L ABG pCO2 at Pt Temp 49.0 H ABG pO2 at Pt Temp 408.0 H* ABG HCO3 22.5 ABG O2 Sat (Measured) 99.9 H* ABG O2 Content 18.6 ABG Base Excess -3.9 L Cole Test Positive O2 Delivery Device Vent Oxygen Flow Rate 100% Vent Mode Ac Vent Rate 10 Mechanical Rate Y PEEP Pressure Support Vent 500 Sodium 134 L Potassium 4.3 Chloride 99 Carbon Dioxide 26 Anion Gap 9 BUN 21 H Creatinine 1.3 H Creat Clearance w eGFR 41.11 Random Glucose 164 H Lactic Acid Calcium 7.1 L Phosphorus Magnesium Total Bilirubin 0.6 AST 20 ALT 16 D Alkaline Phosphatase 37 L D Total Protein 4.1 L D Albumin 1.4 L D Lipase Urine Color Urine Appearance Urine pH Urine Protein Urine Glucose (UA) Urine Ketones Urine Blood Urine Nitrite Urine Bilirubin Urine Urobilinogen Ur Leukocyte Esterase Urine RBC Urine WBC Ur Epithelial Cells Urine Bacteria Hyaline Casts Urine Mucus Blood Type Antibody Screen 02/12/17 02/12/17 02/12/17 06:00 06:00 08:20 WBC 9.2 RBC 3.36 L D Hgb 11.2 D Hct 33.3 D MCV 98.9 H MCH 33.3 MCHC 33.7 RDW 14.8 Plt Count 317 MPV 9.3 Neutrophils % 88.2 H D Lymphocytes % 5.1 L D Monocytes % 6.6 Eosinophils % 0.0 Basophils % 0.1 Band Neutrophils Metamyelocytes Myelocytes Differential Comment Platelet Estimate Platelet Comment INR PTT (Actin FS) Puncture Site Right radial ABG pH 7.39 ABG pCO2 at Pt Temp 31.4 L D ABG pO2 at Pt Temp 165.0 H* ABG HCO3 18.7 L ABG O2 Sat (Measured) 99.2 H ABG O2 Content 19.6 ABG Base Excess -4.7 L Cole Test Positive O2 Delivery Device Vent Oxygen Flow Rate 50 Vent Mode A/c Vent Rate 14 Mechanical Rate Yes PEEP 0.0 Pressure Support Vent 500 Sodium 137 Potassium 3.6 Chloride 106 Carbon Dioxide 22 Anion Gap 9 BUN 17 Creatinine 0.8 D Creat Clearance w eGFR > 60 Random Glucose 148 H Lactic Acid Calcium 6.1 L* Phosphorus 3.0 Magnesium 2.3 Total Bilirubin 0.9 D AST 16 ALT 14 Alkaline Phosphatase 28 L D Total Protein 3.4 L Albumin 1.1 L D Lipase Urine Color Urine Appearance Urine pH Urine Protein Urine Glucose (UA) Urine Ketones Urine Blood Urine Nitrite Urine Bilirubin Urine Urobilinogen Ur Leukocyte Esterase Urine RBC Urine WBC Ur Epithelial Cells Urine Bacteria Hyaline Casts Urine Mucus Blood Type Antibody Screen Problem List - Problems (1) Acute abdomen Code(s): R10.0 - ACUTE ABDOMEN (2) Diabetes mellitus Code(s): E11.9 - TYPE 2 DIABETES MELLITUS WITHOUT COMPLICATIONS (3) Obesity Code(s): E66.9 - OBESITY, UNSPECIFIED Qualifiers: Obesity type: due to excess calories (4) Perforation bowel Code(s): K63.1 - PERFORATION OF INTESTINE (NONTRAUMATIC) (5) Septic shock Code(s): A41.9 - SEPSIS, UNSPECIFIED ORGANISM R65.21 - SEVERE SEPSIS WITH SEPTIC SHOCK Assessment/Plan S/P Ex-LAp for perforated viscous, drainage of multiple intra-abdominal abscesses, sigmoid resection, colorectal anastamosis, & transverse loop colostomy Acute Respiratory Failure HTN DM Smoker Suspected Sepsis NPO Current vent settings Sedation HOB > 30 BD TX ABX per ID Follow CVP Trend Lactic Acid Strict I's & O's Replete electrolytes VTE prophylaxis Dr Raymundo Critical care time spent in reviewing chart, evaluating patient and formulating plan 40 min
[2017-02-12] MEDS: INSULIN SLIDING SCALE (NOVOLOG) 1 VIAL SQ SCH ×4 (12:00→22:07)
[2017-02-12] MEDS ORDERED: POTASSIUM CHLORIDE 10 MEQ in DEXTROSE 5%-NORMAL SALINE 1,000 ML IVPB SCH ×2 (12:00→13:04)
--- NOTE | 2017-02-12 13:59 | PN ---
Progress Note (short form) - Note Progress Note: Anesthesia postop note 66 y/o F s/p GA for exploratory laparotomy, perforated viscus POD#1, ICU, vs maintained on levophed, pain well controlled with fentanyl, intubated No anesthesia complications, care as per critical care and surgery services.
[2017-02-12] MEDS ORDERED: LACTATED RINGERS SOLUTION 1,000 ML IV STA (14:07)
--- NOTE | 2017-02-12 14:10 | PN ---
Progress Note, Physician - Current Medication List Current Medications: Active Medications Heparin Sodium (Porcine) (Heparin -) 5,000 unit SQ TID RAF Metronidazole (Flagyl 500mg Premixed Ivpb -) 100 mls @ 100 mls/hr IVPB Q8H-IV RAF Last Admin: 02/12/17 09:32 Dose: 100 mls/hr Levofloxacin (Levaquin 500 Mg Premixed Ivpb -) 100 mls @ 100 mls/hr IVPB DAILY RAF Last Admin: 02/12/17 09:33 Dose: 100 mls/hr Propofol (Diprivan -) 100 mls @ 2.517 mls/hr IVPB TITR RAF; 5 MCG/KG/MIN PRN Reason: Protocol Stop: 02/14/17 01:59 Last Admin: 02/12/17 03:56 Dose: 15.105 mls/hr Norepinephrine Bitartrate 4, (000 mcg/ Dextrose) 500 mls @ 37.5 mls/hr IV TITR RAF; 5 MCG/MIN PRN Reason: Protocol Last Admin: 02/12/17 06:54 Dose: 66 mls/hr Fentanyl 500 mcg/ Dextrose 100 mls @ 20 mls/hr IJ TITR RAF PRN Reason: 100 MCG/HR Last Admin: 02/12/17 09:37 Dose: 20 mls/hr Potassium Chloride 10 meq/ (Dextrose/Sodium Chloride) 1,005 mls @ 100 mls/hr IVPB Q10H RAF Pantoprazole Sodium 40 mg/ (Sodium Chloride) 100 mls @ 200 mls/hr IVPB DAILY RAF Insulin Aspart (Novolog Vial Sliding Scale -) 1 vial SQ ACHS RAF PRN Reason: Protocol Morphine Sulfate (Morphine Injection -) 4 mg IVPUSH Q6H PRN PRN Reason: PAIN Ondansetron HCl (Zofran Injection) 4 mg IVPUSH Q6H PRN PRN Reason: NAUSEA AND/OR VOMITING - Objective Vital Signs: Vital Signs Temperature 97.6 F 02/12/17 06:00 Pulse Rate 83 02/12/17 10:53 Respiratory Rate 17 02/12/17 12:05 Blood Pressure 91/74 02/12/17 07:00 O2 Sat by Pulse Oximetry (%) 99 02/12/17 10:53 Labs: CBC, BMP 02/12/17 06:00 02/12/17 06:00 INR, PTT INR 1.29 (0.82-1.09) H 02/11/17 18:52 Problem List - Problems (1) Perforation bowel Code(s): K63.1 - PERFORATION OF INTESTINE (NONTRAUMATIC) (2) Acute abdomen Code(s): R10.0 - ACUTE ABDOMEN (3) Obesity Code(s): E66.9 - OBESITY, UNSPECIFIED Qualifiers: (4) Diabetes mellitus Code(s): E11.9 - TYPE 2 DIABETES MELLITUS WITHOUT COMPLICATIONS Assessment/Plan Patient is in ICU, intubated on ventilator. Awake. Abdomen is soft, colostomy pink, Patients daughter is made aware of operative findings, and the serious condition . Management of sepsis.
[2017-02-12] MEDS: HEPARIN NA (PORCINE) 5,000 UNITS/ML 1ML VIAL SQ SCH ×2 (15:14→21:55)
[2017-02-12] MEDS: PANTOPRAZOLE SODIUM 100 ML IVPB SCH (15:14)
--- NOTE | 2017-02-12 15:32 | HP ---
Admitting History and Physical - Admission Chief Complaint: Pt seen and examined on 02/11/17 however note is being entered now History of Present Illness: Pt is a 66 y/o female with PMH significant for HTN, DM who presented to the ER with abdominal pain. Pt reports onset of severe abdominal pain 6 days ago w/ abdominal distention. She states that she has been having some diarrhea, but has been only attempting to intake liquids. She also reports some darker colored urine that she was concerned about prompting her visit to the ED today. She endorses some nausea after meals, but denies any fevers, chills, chest pain, SOB, or vomiting. Pt was brought to the ER and had laparotmy w/ sigmoid resectio and transverse loop colectomy and lysis of adhesions. Pt found to have ischemic omnetum w/ intraabdominal absecesses and was intubated and admitted to the ICU. History Source: Patient, Medical Record - Past Medical History Cardiovascular: Yes: HTN Endocrine: Yes: Diabetes Mellitus - Past Surgical History Past Surgical History: Yes: Hysterectomy - Smoking History Smoking history: Current every day smoker Have you smoked in the past 12 months: Yes Aproximately how many cigarettes per day: 5 - Alcohol/Substance Use Hx Alcohol Use: Yes Number of Drinks Daily: 3 History of Substance Use: reports: None - Social History ADL: Independent History of Recent Travel: No Home Medications - Allergies Allergies/Adverse Reactions: Allergies Allergy/AdvReac Type Severity Reaction Status Date / Time aspirin AdvReac Mild Nausea Verified 02/15/17 05:19 Penicillins AdvReac Mild Nausea Verified 02/15/17 05:19 - Home Medications Home Medications: Ambulatory Orders Enalapril Maleate [Vasotec] 20 mg PO DAILY 02/11/17 Hydrochlorothiazide [Hctz -] 25 mg PO DAILY 02/11/17 Metformin HCl 500 mg PO DAILY 02/11/17 Metoprolol Succinate [Toprol Xl -] 25 mg PO DAILY 02/11/17 Family Disease History - Family Disease History Family History: Unremarkable Review of Systems - Review of Systems Constitutional: reports: No Symptoms Neck: reports: No Symptoms Cardiovascular: reports: No Symptoms Respiratory: reports: No Symptoms Gastrointestinal: reports: Abdominal Pain, Nausea Physical Examination Vital Signs: Vital Signs Temperature 97.6 F 02/12/17 06:00 Pulse Rate 83 02/12/17 10:53 Respiratory Rate 17 02/12/17 14:18 Blood Pressure 91/74 02/12/17 07:00 O2 Sat by Pulse Oximetry (%) 99 02/12/17 10:53 Constitutional: Yes: Well Nourished HENT: Yes: WNL Neck: Yes: WNL, Supple Cardiovascular: Yes: WNL, Regular Rate and Rhythm Respiratory: Yes: WNL, Regular, CTA Bilaterally Gastrointestinal: Yes: Abdomen, Obese, Other ((+) generalized tenderness) Labs: CBC, BMP 02/12/17 06:00 02/12/17 06:00 Problem List - Problems (1) Perforation bowel Assessment/Plan: As per surgery Pt to go to the OR Ct scan showed scute diveritulicits w/ perforation and ?partial obstruction Cont IV atnibxs Cont IVF/NPO ID consult ICu consult Code(s): K63.1 - PERFORATION OF INTESTINE (NONTRAUMATIC) (2) Sepsis Assessment/Plan: Due to bowel perforation/diverticulitis Cont IV antibxs/IVF Follow cultures Code(s): A41.9 - SEPSIS, UNSPECIFIED ORGANISM (3) Diabetes mellitus Assessment/Plan: Cont sliding scale w/ novolog Code(s): E11.9 - TYPE 2 DIABETES MELLITUS WITHOUT COMPLICATIONS (4) Hypertension Code(s): I10 - ESSENTIAL (PRIMARY) HYPERTENSION (5) Obesity Code(s): E66.9 - OBESITY, UNSPECIFIED Qualifiers: Obesity type: due to excess calories
--- NOTE | 2017-02-12 18:51 | CONSULT ---
Consult Consult Specialty:: infectious diseases Reason for Consultation:: sepsis,perforation sigmoid ,peritonitis - History of Present Illness Chief Complaint: abd pain History of Present Illness: 66 year old female with a history of HTN, DM who came with abd pain.Patient was evalauted in the ed and worked up and found to have peritonitis and perforation of the bowel and was taken to the operating room Operative findings include multiple abscess and and sigmoid perforation patient post came intubated and still she is intubated and on pressors as she was in shock patinet got levaquin and flagyl,there is some suspicion of pcn allergy currently the patient is still on pressor but. more awake and alert patient ended up getting a transverse loop. patient still on pressors - History Source History Provided By: Medical Record Limitations to Obtaining History: Clinical Condition - Past Medical History Cardio/Vascular: Yes: HTN Endocrine: Yes: Diabetes Mellitus - Past Surgical History Past Surgical History: Yes: Hysterectomy - Alcohol/Substance Use Hx Alcohol Use: Yes Number of Drinks Daily: 3 History of Substance Use: reports: None - Smoking History Smoking history: Current every day smoker Have you smoked in the past 12 months: Yes Aproximately how many cigarettes per day: 5 - Social History Usual Living Arrangement: Alone ADL: Independent History of Recent Travel: No Home Medications - Allergies Allergies/Adverse Reactions: Allergies Allergy/AdvReac Type Severity Reaction Status Date / Time aspirin AdvReac Mild Nausea Unverified 02/11/17 12:59 Penicillins AdvReac Mild Nausea Unverified 02/11/17 12:59 - Home Medications Home Medications: Ambulatory Orders Enalapril Maleate [Vasotec] 20 mg PO DAILY 02/11/17 Hydrochlorothiazide [Hctz -] 25 mg PO DAILY 02/11/17 Metformin HCl 500 mg PO DAILY 02/11/17 Metoprolol Succinate [Toprol Xl -] 25 mg PO DAILY 02/11/17 Review of Systems Unable to obtain ROS, reason: unable to obtain intubate Physical Exam Vital Signs: Vital Signs Temperature 97.6 F 02/12/17 06:00 Pulse Rate 83 02/12/17 10:53 Respiratory Rate 16 02/12/17 16:15 Blood Pressure 91/74 02/12/17 07:00 O2 Sat by Pulse Oximetry (%) 99 02/12/17 10:53 Constitutional: Yes: Obese Eyes: Yes: Conjunctiva Clear HENT: Yes: Atraumatic Neck: Yes: Supple Cardiovascular: Yes: Regular Rate and Rhythm, Tachycardia Respiratory: Yes: Intubated, Mechanically Ventilated Gastrointestinal: Yes: Other (absent bowel sounds,has transverse loop ileostomy, dressing on open wound post op) Renal/: Yes: Escobar Present Musculoskeletal: Yes: WNL Extremities: Yes: WNL Neurological: Yes: Alert Psychiatric: Yes: Alert Labs: CBC, BMP 02/12/17 06:00 02/12/17 06:00 Imaging - Results Chest X-ray: Report Reviewed, Image Reviewed Cat Scan: Report Reviewed, Image Reviewed Assessment/Plan Problem List - Problems (1) Acute abdomen Code(s): R10.0 - ACUTE ABDOMEN (2) Diabetes mellitus Code(s): E11.9 - TYPE 2 DIABETES MELLITUS WITHOUT COMPLICATIONS (3) Obesity Code(s): E66.9 - OBESITY, UNSPECIFIED Qualifiers: Obesity type: due to excess calories (4) Perforation bowel Code(s): K63.1 - PERFORATION OF INTESTINE (NONTRAUMATIC) (5) Septic shock Code(s): A41.9 - SEPSIS, UNSPECIFIED ORGANISM R65.21 - SEVERE SEPSIS WITH SEPTIC SHOCK all the factors seen plan will start her on abx d/w the nursing staff to monitor what happens after meropenam patients allergy is nausea continue pressors continue rest as p[er primary and icu cc time 45 min
[2017-02-12] MEDS ORDERED: MEROPENEM 1 GM in DEXTROSE 5%-WATER - 250 ML IVPB SCH (19:00)
[2017-02-12] MEDS ORDERED: PT OWN MED DRAWER 7, Y5N ONE (21:45)
[2017-02-12] MEDS: CASPOFUNGIN ACETATE 50 MG in SODIUM CHLORIDE 250 ML IVPB SCH (21:55)
[2017-02-12] MEDS: morphine CARPU-JECT 4 MG/1 ML DISP.SYRIN IVPUSH PRN (21:56)
[2017-02-13] MEDS: MEROPENEM 1 GM in DEXTROSE 5%-WATER - 100 ML IVPB SCH ×3 (01:05→17:04)
[2017-02-13] MEDS: FENTANYL INJECTION 500 MCG in DEXTROSE 5%-WATER - 90 ML IJ SCH ×2 (01:06→07:03)
[2017-02-13 06:19] LABS: MCH 33.4 pg (25.7-33.7); MCHC 33.9 g/dl (32.0-36.0); MEAN CELL VOLUME 98.5 fl (80-96); MEAN PLT VOLUME 9.1 fl (7.5-11.1); PLATELET COUNT 366 K/MM3 (134-434); RDW 15.5 % (11.6-15.6); WHITE BLOOD COUNT 13.9 K/mm3 (4.0-10.0)
[2017-02-13] MEDS ORDERED: NOREPINEPHRINE BITARTRATE 4 MG/4 ML ML IV ONE (06:41)
[2017-02-13 06:48] LABS: ANION GAP 9 (8-16); CO2 24 mmol/L (21-32); GLUCOSE,RANDOM 197 mg/dL (74-106); MAGNESIUM 3.1 mg/dL (1.8-2.4)
[2017-02-13 06:49] LABS: CREATININE 0.7 mg/dL (0.55-1.02); PHOSPHOROUS 1.7 mg/dL (2.5-4.9)
[2017-02-13 06:56] LABS: CALCIUM 6.9 mg/dL (8.5-10.1)
[2017-02-13] MEDS: PROPOFOL 100 ML IVPB SCH (07:02)
[2017-02-13] MEDS: HEPARIN NA (PORCINE) 5,000 UNITS/ML 1ML VIAL SQ SCH ×2 (07:02→14:57)
[2017-02-13] MEDS: NOREPINEPHRINE BITARTRATE 4,000 MCG in DEXTROSE 5%-WATER - 496 ML IV SCH ×2 (07:02→09:50)
[2017-02-13] MEDS: INSULIN SLIDING SCALE (NOVOLOG) 1 VIAL SQ SCH ×4 (07:04→22:00)
[2017-02-13] MEDS: morphine CARPU-JECT 4 MG/1 ML DISP.SYRIN IVPUSH PRN ×5 (07:05→20:27)
[2017-02-13 09:29] LABS: ARTERIAL BLD GAS O2 SATURATION 97.3 % (90-98.9); ARTERIAL BLOOD GAS HCO3 22.5 meq/L (22-26); ARTERIAL BLOOD GAS PO2 89.9 mmHg (80-100); ARTERIAL BLOOD GAS pH 7.42 (7.35-7.45)
[2017-02-13 09:32] LABS: ALLENS TEST POSITIVE; ART PUNCT SITE RIGHT RADIAL; LPM/O2% 35%; MECH. VENT. ESPRIT; PT. ON O2? YES; TYPE OF O2 MEC.VENT; VENT RATE 14; VT/PRESS 500
[2017-02-13] MEDS ORDERED: PT OWN MED DRAWER 7, Y5N ONE ×4 (09:56→17:03)
--- NOTE | 2017-02-13 09:57 | PN ---
Progress Note (short form) - Note Progress Note: PULM/CCM Pt seen and examined in ICU SUBJECTIVE: Patient seen and examined in the ICU. -low dose NE for BP support -awake an interactive this morning, pain controlled -wbc up, but no fever overnight -? new infiltrate, LLL on CXR CXR: ETT in position / no acute pathology Intake & Output 02/09/17 02/10/17 02/11/17 02/12/17 23:59 23:59 23:59 23:59 Intake Total 6000 3720 Output Total 400 100 Balance 5600 3620 Weight 185 lb 188 lb 11.451 oz Last Vital Signs Temp Pulse Resp BP Pulse Ox 97.6 F 83 18 91/74 99 02/12/17 06:00 02/12/17 10:53 02/12/17 09:20 02/12/17 07:00 02/12/17 10:53 Current Medications Heparin Sodium (Porcine) (Heparin -) 5,000 unit SQ TID RAF Last Admin: 02/13/17 07:02 Dose: 5,000 unit Propofol (Diprivan -) 100 mls @ 2.517 mls/hr IVPB TITR RAF; 5 MCG/KG/MIN PRN Reason: Protocol Stop: 02/14/17 01:59 Last Admin: 02/13/17 07:02 Dose: 20.14 mls/hr Norepinephrine Bitartrate 4, (000 mcg/ Dextrose) 500 mls @ 37.5 mls/hr IV TITR RAF; 5 MCG/MIN PRN Reason: Protocol Last Admin: 02/13/17 07:02 Dose: 37.5 mls/hr Fentanyl 500 mcg/ Dextrose 100 mls @ 20 mls/hr IJ TITR RAF PRN Reason: 100 MCG/HR Last Admin: 02/13/17 07:03 Dose: 20 mls/hr Pantoprazole Sodium (Protonix 40mg Ivpb (Pre-Docked)) 100 mls @ 200 mls/hr IVPB DAILY RAF Last Admin: 02/12/17 15:14 Dose: 200 mls/hr Caspofungin 50 mg/ Sodium (Chloride) 250 mls @ 250 mls/hr IVPB DAILY RAF Last Admin: 02/12/17 21:55 Dose: 250 mls/hr Meropenem 1 gm/ Dextrose 100 mls @ 200 mls/hr IVPB Q8H-IV RAF PRN Reason: Protocol Last Admin: 02/13/17 01:05 Dose: 200 mls/hr Insulin Aspart (Novolog Vial Sliding Scale -) 1 vial SQ ACHS RAF PRN Reason: Protocol Last Admin: 02/13/17 07:04 Dose: 2 units Morphine Sulfate (Morphine Injection -) 4 mg IVPUSH Q6H PRN PRN Reason: PAIN Last Admin: 02/13/17 07:05 Dose: 4 mg Ondansetron HCl (Zofran Injection) 4 mg IVPUSH Q6H PRN PRN Reason: NAUSEA AND/OR VOMITING Constitutional: Yes: Orally Intubated, awake, mild distres Eyes: Yes: WNL, Conjunctiva Clear, EOM Intact HENT: Yes: WNL, Atraumatic, Normocephalic Neck: Yes: WNL, Supple, Trachea Midline Cardiovascular: Yes: WNL, Regular Rate and Rhythm Respiratory: Yes: WNL, Regular, CTA Bilaterally Gastrointestinal: Yes: Abdomen, Obese, Distention, Hypoactive Bowel Sounds, S/P Ex-Lap w/ RUQ colostomy. Colostomy looks pink & healthy, minimal output ...Rectal Exam: Yes: Deferred Renal/: Yes: WNL Breast(s): Yes: WNL Musculoskeletal: Yes: WNL Extremities: Yes: WNL Edema: Yes Edema: LUE: 2+, RUE: 2+, LLE: 2+, RLE: 2+ Peripheral Pulses WNL: Yes Integumentary: Yes: WNL Wound/Incision: Yes: Clean/Dry, Well Approximated, Sutures Intact, [place] Intact, Dressing Dry and Intact Neurological: Yes: awake, alert, oriented ...Motor Strength: WNL Psychiatric: Yes: WNL, Oriented Labs: Laboratory Last Values WBC 13.9 K/mm3 (4.0-10.0) H D 02/13/17 05:30 RBC 3.33 M/mm3 (3.60-5.2) L 02/13/17 05:30 Hgb 11.1 GM/dL (10.7-15.3) 02/13/17 05:30 Hct 32.9 % (32.4-45.2) 02/13/17 05:30 MCV 98.5 fl (80-96) H 02/13/17 05:30 MCH 33.4 pg (25.7-33.7) 02/13/17 05:30 MCHC 33.9 g/dl (32.0-36.0) 02/13/17 05:30 RDW 15.5 % (11.6-15.6) 02/13/17 05:30 Plt Count 366 K/MM3 (134-434) 02/13/17 05:30 MPV 9.1 fl (7.5-11.1) 02/13/17 05:30 Neutrophils % 88.2 % (42.8-82.8) H D 02/12/17 06:00 Lymphocytes % 5.1 % (8-40) L D 02/12/17 06:00 Monocytes % 6.6 % (3.8-10.2) 02/12/17 06:00 Eosinophils % 0.0 % (0-4.5) 02/12/17 06:00 Basophils % 0.1 % (0-2.0) 02/12/17 06:00 Band Neutrophils 10.0 % (0-10) D 02/12/17 02:05 Metamyelocytes 3 % (0-2) H D 02/12/17 02:05 Myelocytes 1 % (0-2) 02/11/17 14:00 Differential Comment Manual diff done 02/11/17 14:00 Platelet Estimate Adequate (NORMAL) 02/12/17 02:05 Platelet Comment No clotting detected 02/12/17 02:05 Platelet Comment Mod large plts 02/12/17 02:05 INR 1.29 (0.82-1.09) H 02/11/17 18:52 PTT (Actin FS) 29.1 SECONDS (26.9-34.4) 02/11/17 18:52 Puncture Site Right radial 02/13/17 09:25 ABG pH 7.42 (7.35-7.45) 02/13/17 09:25 ABG pCO2 at Pt Temp 35.1 mmHg (35-45) 02/13/17 09:25 ABG pO2 at Pt Temp 89.9 mmHg (80-100) D 02/13/17 09:25 ABG HCO3 22.5 meq/L (22-26) 02/13/17 09:25 ABG O2 Sat (Measured) 97.3 % (90-98.9) 02/13/17 09:25 ABG O2 Content 14.8 % vol (15-22) L 02/13/17 09:25 ABG Base Excess -1.0 meq/l (-2-2) 02/13/17 09:25 Cole Test Positive 02/13/17 09:25 O2 Delivery Device Mec.vent 02/13/17 09:25 Oxygen Flow Rate 35% 02/13/17 09:25 Vent Mode A/c 02/13/17 09:25 Vent Rate 14 02/13/17 09:25 Mechanical Rate Esprit 02/13/17 09:25 PEEP 0.0 cmH2O 02/13/17 09:25 Pressure Support Vent 500 02/13/17 09:25 Sodium 136 mmol/L (136-145) 02/13/17 05:30 Potassium 3.7 mmol/L (3.5-5.1) 02/13/17 05:30 Chloride 103 mmol/L (98-107) 02/13/17 05:30 Carbon Dioxide 24 mmol/L (21-32) 02/13/17 05:30 Anion Gap 9 (8-16) 02/13/17 05:30 BUN 10 mg/dL (7-18) D 02/13/17 05:30 Creatinine 0.7 mg/dL (0.55-1.02) 02/13/17 05:30 Creat Clearance w eGFR > 60 (>60) 02/12/17 06:00 POC Glucometer 212.39808 UNITS (()) 02/12/17 22:06 Random Glucose 197 mg/dL (74-106) H D 02/13/17 05:30 Lactic Acid 1.4 mmol/L (0.4-2.0) 02/13/17 05:30 Calcium 6.9 mg/dL (8.5-10.1) L* 02/13/17 05:30 Phosphorus 1.7 mg/dL (2.5-4.9) L D 02/13/17 05:30 Magnesium 3.1 mg/dL (1.8-2.4) H D 02/13/17 05:30 Total Bilirubin 0.9 mg/dL (0.2-1.0) D 02/12/17 06:00 AST 16 U/L (15-37) 02/12/17 06:00 ALT 14 U/L (12-78) 02/12/17 06:00 Alkaline Phosphatase 28 U/L (45-117) L D 02/12/17 06:00 Total Protein 3.4 g/dl (6.4-8.2) L 02/12/17 06:00 Albumin 1.1 g/dl (3.4-5.0) L D 02/12/17 06:00 Lipase 50 U/L (73-393) L 02/11/17 14:00 Urine Color Delia 02/11/17 21:32 Urine Appearance Cloudy 02/11/17 21:32 Urine pH 5.0 (5.0-8.0) 02/11/17 21:32 Ur Specific [place] >= 1.030 (1.005-1.025) H 02/11/17 21:32 Urine Protein 2+ (NEGATIVE) H 02/11/17 21:32 Urine Glucose (UA) 1+ (NEGATIVE) H 02/11/17 21:32 Urine Ketones Trace (NEGATIVE) H 02/11/17 21:32 Urine Blood Negative (NEGATIVE) 02/11/17 21:32 Urine Nitrite Negative (NEGATIVE) 02/11/17 21:32 Urine Bilirubin 2.0 (NEGATIVE) 02/11/17 21:32 Urine Urobilinogen Negative mg/dL (0.2-1.0) 02/11/17 21:32 Ur Leukocyte Esterase Negative (NEGATIVE) 02/11/17 21:32 Urine RBC 7 /hpf (0-3) 02/11/17 21:32 Urine WBC 20 /hpf (3-5) 02/11/17 21:32 Ur Epithelial Cells Many /hpf (FEW) 02/11/17 21:32 Urine Bacteria Many /hpf (NONE SEEN) 02/11/17 21:32 Hyaline Casts 18 /lpf 02/11/17 21:32 Urine Mucus Many 02/11/17 21:32 Blood Type B POSITIVE 02/11/17 18:52 Antibody Screen Negative 02/11/17 18:52 Problem List - Problems (1) Acute abdomen Code(s): R10.0 - ACUTE ABDOMEN (2) Diabetes mellitus Code(s): E11.9 - TYPE 2 DIABETES MELLITUS WITHOUT COMPLICATIONS (3) Obesity Code(s): E66.9 - OBESITY, UNSPECIFIED Qualifiers: Obesity type: due to excess calories (4) Perforation bowel Code(s): K63.1 - PERFORATION OF INTESTINE (NONTRAUMATIC) (5) Septic shock Code(s): A41.9 - SEPSIS, UNSPECIFIED ORGANISM R65.21 - SEVERE SEPSIS WITH SEPTIC SHOCK Assessment/Plan S/P Ex-LAp for perforated viscous, drainage of multiple intra-abdominal abscesses, sigmoid resection, colorectal anastamosis, & transverse loop colostomy Acute Respiratory Failure HTN DM Smoker Suspected Intra-abominal sepsis NPO Vent support as needed, PS trial this morning, will extubate if passes Pain management, no need for sedation as awake and interactive HOB > 30 BD TX ABX per ID, if infiltrate increases will add vanco/AG for VAP Trend Lactic Acid Strict I's & O's Replete electrolytes VTE prophylaxis Manoj Vallecillo [facility] [id number] Critical Care Total Critical Care Time (in minutes): 35 Critical Care Statement: The care of this patient involved high complexity decision making to prevent further life threatening deterioration of the patient 's condition and/or to evalute & treat vital organ system(s) failure or risk of failure.
[2017-02-13] MEDS ORDERED: PANTOPRAZOLE SODIUM 100 ML IVPB SCH (10:00)
[2017-02-13] MEDS: PANTOPRAZOLE SODIUM 100 ML IVPB SCH (10:03)
--- NOTE | 2017-02-13 12:15 | PN ---
Progress Note, Physician - Current Medication List Current Medications: Active Medications Heparin Sodium (Porcine) (Heparin -) 5,000 unit SQ TID RAF Last Admin: 02/13/17 07:02 Dose: 5,000 unit Propofol (Diprivan -) 100 mls @ 2.517 mls/hr IVPB TITR RAF; 5 MCG/KG/MIN PRN Reason: Protocol Stop: 02/14/17 01:59 Last Titration: 02/13/17 09:53 Dose: 0 mcg/kg/min Norepinephrine Bitartrate 4, (000 mcg/ Dextrose) 500 mls @ 37.5 mls/hr IV TITR RAF; 5 MCG/MIN PRN Reason: Protocol Last Admin: 02/13/17 09:50 Dose: 37.5 mls/hr Pantoprazole Sodium (Protonix 40mg Ivpb (Pre-Docked)) 100 mls @ 200 mls/hr IVPB DAILY RAF Last Admin: 02/13/17 10:03 Dose: 200 mls/hr Caspofungin 50 mg/ Sodium (Chloride) 250 mls @ 250 mls/hr IVPB DAILY RAF Last Admin: 02/12/17 21:55 Dose: 250 mls/hr Meropenem 1 gm/ Dextrose 100 mls @ 200 mls/hr IVPB Q8H-IV RAF PRN Reason: Protocol Last Admin: 02/13/17 10:04 Dose: 200 mls/hr Insulin Aspart (Novolog Vial Sliding Scale -) 1 vial SQ ACHS RAF PRN Reason: Protocol Last Admin: 02/13/17 07:04 Dose: 2 units Morphine Sulfate (Morphine Injection -) 4 mg IVPUSH Q3H PRN PRN Reason: PAIN Last Admin: 02/13/17 11:09 Dose: 4 mg Ondansetron HCl (Zofran Injection) 4 mg IVPUSH Q6H PRN PRN Reason: NAUSEA AND/OR VOMITING - Objective Vital Signs: Vital Signs Temperature 98.2 F 02/13/17 05:00 Pulse Rate 103 H 02/13/17 10:40 Respiratory Rate 26 H 02/13/17 09:45 Blood Pressure 101/73 02/13/17 09:50 O2 Sat by Pulse Oximetry (%) 97 02/13/17 10:40 Labs: CBC, BMP 02/13/17 05:30 02/13/17 05:30 INR, PTT INR 1.29 (0.82-1.09) H 02/11/17 18:52 Problem List - Problems (1) Perforation bowel Code(s): K63.1 - PERFORATION OF INTESTINE (NONTRAUMATIC) (2) Acute abdomen Code(s): R10.0 - ACUTE ABDOMEN (3) Obesity Code(s): E66.9 - OBESITY, UNSPECIFIED Qualifiers: (4) Diabetes mellitus Code(s): E11.9 - TYPE 2 DIABETES MELLITUS WITHOUT COMPLICATIONS Assessment/Plan Patient is extubated, afebrile, WBC 61265, Wound : dressing changed , packing placed. [place] and clean. Colostomy is pink with some bloody fluid. NG tube with greenish bile. Patient is responding to treatment . Continue antibiotics, out of bed , DVT prophylaxis.
--- NOTE | 2017-02-13 14:06 | OP ---
DATE OF OPERATION: 02/12/2017 PREOPERATIVE DIAGNOSES: Acute abdomen, peritonitis with perforated viscous, intraabdominal abscess, sepsis, and morbid obesity. POSTOPERATIVE DIAGNOSES: Perforated diverticulitis with multiple intraabdominal abscesses, multiple adhesions of omentum and small intestine, extensive edematous intestine throughout the small intestine as well as the splenic flexure, descending colon, and the retroperitoneum, multiple adhesions of omentum, small intestine, and abdominal obesity. OPERATIVE PROCEDURE: Laparotomy, sigmoid resection, mobilization of the splenic flexure of the colon, colorectal anastomosis, transverse loop colostomy, drainage of multiple intraabdominal abscesses x3, peritoneal washout, omentectomy, and lysis of adhesions. SURGEON: Parviz Villalta MD BIZTALK ARCHITECT: RUT Welch OPERATIVE FINDINGS: Perforation of the sigmoid colon with extensive edema, adhesions, and acute diverticulitis with phlegmon throughout the colon. Multiple intraabdominal abscesses interloop in the upper abdomen bounded by the small bowel, pelvic abscess behind the rectum, posterior abdominal abscess along the posterior abdominal wall, necrotic and ischemic omentum, and multiple peritoneal adhesions from prior surgery as well as from the abscesses. ANESTHESIOLOGIST: Abdulaziz Metcalf MD ANESTHESIA: General anesthesia. SPECIMENS REMOVED: Sigmoid colon perforation and necrotic debris of the abscess wall. OPERATIVE DESCRIPTION: This 66-year-old woman has been sick for 1 week since last . She was at home unable to eat, severe abdominal pain and distention. She came to the emergency room. She was found septic, diffuse peritonitis, and an acute abdomen. She is also very obese. CAT scan suggested perforated sigmoid colon and free air throughout the abdomen and multiple edematous small bowels with adhesions and abscesses. Patient and her daughter were informed of the findings and need for emergency laparotomy. Patient's daughter had come in from [place]. She was explained about her mother's condition. Patient was given antibiotics. IV was started. NG tube was placed. She was hydrated, taken to the operating room. General anesthesia was administered. Escobar catheter was placed in the bladder. The abdomen was opened through a vertical midline incision above and below the umbilicus. Bookwalter retractor was used during the procedure. Upon entering the abdominal cavity, there were multiple cloudy fluids in the abdominal cavity. Swab was sent for culture and antibiotic sensitivity examination. The patient had a previous hysterectomy. The adhesions of omentum to the abdominal wall were gently lysed to enter the abdominal cavity. There was severely edematous small bowel. This was carefully mobilized to the opening of multiple intraabdominal abscesses. One was bounded by the retroperitoneum, descending colon, and the small bowel. There was another abscess with a lot of pus which was in the proximal small bowel in the upper abdomen. This was also drained. There was also an abscess in the pelvis. There were multiple scars found in the lower abdomen from her previous hysterectomy as well as a large abscess. This was also drained. There were multiple adhesions small bowel which were excised carefully. The whole small bowel was significantly edematous. The sigmoid colon, rectum, and the descending colon all the way to the splenic flexure was markedly edematous, also with edematous mesentery and retroperitoneum. It was decided to resect the sigmoid colon with the perforation. Using CRISTIAN stapling device across the rectosigmoid, the sigmoid was resected distally. Proximally, the sigmoid was resected at the junction of the descending colon and sigmoid colon. However, the mesentery was very edematous and thick. This was divided using the LigaSure. There was a large perforation in the sigmoid colon with necrotic bowel and taeniae coli. The specimen was marked with a suture at the proximal edge of resection. It was then decided to mobilize the descending colon and splenic flexure all the way to the distal transverse colon. The retroperitoneum was very edematous and so were the descending colon, splenic flexure, and its mesentery. The rectum was also limited from mobilization because of previous surgery. The patient's abdomen was also very thick and edematous with 6 to 7 cm of subcutaneous fat with erythematous peritoneum and muscle. Because of the nature of the descending colon and significant thick abdominal wall, about 8 to 9 cm, it was thought that the end-colostomy would be difficult and fraught with danger and ischemia, so it was therefore decided to do a 2-layer hand-sewn anastomosis of the descending colon to the upper rectum. After opening the staple line, a 2-layer anastomosis was performed in continuous 3-0 Vicryl sutures and also intermittent interrupted 3-0 seromuscular sutures. It was then decided to do a transverse loop colostomy to protect the anastomosis. A vertical incision was made in the pararectal area in the right upper quadrant of the abdomen. It was carried down through the rectus muscle into the abdominal cavity. The proximal transverse colon was then brought out as a loop through this abdominal wall out through the skin. This was anchored to the anterior rectus sheath with interrupted 0 silk sutures. The colostomy was anchored above the skin by using two 1-inch Madelaine drains across the mesentery of the transverse colon as well as a plastic loop. The Madelaine drain was sutured to the edge of the wound with 2-0 silk sutures. The abdominal cavity was thoroughly irrigated with normal saline, about 6 to 7 L. This was called a peritoneal washout with thorough irrigation, debridement of the necrotic omentum which was stuck to the abdominal wall from prior surgery and necrotic as well as exudates were excised and sent to Pathology. Once this was done, the abdomen was then closed using No. 1 looped PDS as a retention suture; however, not coming through the skin. This was placed far away from the edge of the wound for about 3 to 4 cm. Multiple such sutures were obtained about 2 cm apart throughout the length of the incision. The fascia was then closed with continuous No. 1 looped PDS sutures. The skin was left open and packed with Iodoform gauze. The transverse colostomy was opened with a small 1-cm opening on the taenia on the antimesenteric side of the colon. Colostomy bag was placed. Patient remained critical and hypotensive and was sent to the ICU intubated. Patient's daughter was informed of the critical condition of the patient. Emili [id number] MTDD
--- NOTE | 2017-02-13 14:49 | PN ---
Progress Note, Physician Chief Complaint: Infectious Disease History of Present Illness: Pt extubated sedated, on pain meds but responsive No distress - Current Medication List Current Medications: Active Medications Heparin Sodium (Porcine) (Heparin -) 5,000 unit SQ TID RAF Last Admin: 02/13/17 07:02 Dose: 5,000 unit Propofol (Diprivan -) 100 mls @ 2.517 mls/hr IVPB TITR RAF; 5 MCG/KG/MIN PRN Reason: Protocol Stop: 02/14/17 01:59 Last Titration: 02/13/17 09:53 Dose: 0 mcg/kg/min Norepinephrine Bitartrate 4, (000 mcg/ Dextrose) 500 mls @ 37.5 mls/hr IV TITR RAF; 5 MCG/MIN PRN Reason: Protocol Last Titration: 02/13/17 11:00 Dose: 0 mcg/min Pantoprazole Sodium (Protonix 40mg Ivpb (Pre-Docked)) 100 mls @ 200 mls/hr IVPB DAILY RAF Last Admin: 02/13/17 10:03 Dose: 200 mls/hr Caspofungin 50 mg/ Sodium (Chloride) 250 mls @ 250 mls/hr IVPB DAILY RAF Last Admin: 02/12/17 21:55 Dose: 250 mls/hr Meropenem 1 gm/ Dextrose 100 mls @ 200 mls/hr IVPB Q8H-IV RAF PRN Reason: Protocol Last Admin: 02/13/17 10:04 Dose: 200 mls/hr Insulin Aspart (Novolog Vial Sliding Scale -) 1 vial SQ ACHS RAF PRN Reason: Protocol Last Admin: 02/13/17 12:14 Dose: 2 units Morphine Sulfate (Morphine Injection -) 4 mg IVPUSH Q3H PRN PRN Reason: PAIN Last Admin: 02/13/17 13:46 Dose: 4 mg Ondansetron HCl (Zofran Injection) 4 mg IVPUSH Q6H PRN PRN Reason: NAUSEA AND/OR VOMITING - Objective Vital Signs: Vital Signs Temperature 98.8 F 02/13/17 14:00 Pulse Rate 86 02/13/17 14:00 Respiratory Rate 20 02/13/17 14:00 Blood Pressure 135/74 02/13/17 14:00 O2 Sat by Pulse Oximetry (%) 97 02/13/17 10:40 Constitutional: Yes: No Distress Cardiovascular: Yes: Regular Rate and Rhythm Respiratory: Yes: Regular Gastrointestinal: Yes: Distention (dressing intact, ileostomy with sanguinous drainage, NGT to suction with bilious fluid), Other Genitourinary: Yes: Escobar Present (clear, yellow urine) Musculoskeletal: Yes: WNL (Dressing intact) Wound/Incision: Yes: Other Labs: CBC, BMP 02/13/17 05:30 02/13/17 05:30 INR, PTT INR 1.29 (0.82-1.09) H 02/11/17 18:52 Microbiology 02/12/17 01:45 Gram Stain - Final Peritoneal Cavity Swab Wound Culture - Preliminary Lactose Fermenting Neg Bacilli 02/12/17 01:45 Gram Stain - Final Abscess Wound Culture - Preliminary Group D Strep Or Entero Coccus Gram Negative Kwasi 02/11/17 20:14 Blood Culture - Preliminary Blood - Peripheral Venous NO GROWTH OBTAINED AFTER 24 HOURS, INCUBATION TO CONTINUE FOR 4 DAYS. 02/11/17 20:14 Blood Culture - Preliminary Blood - Peripheral Venous NO GROWTH OBTAINED AFTER 24 HOURS, INCUBATION TO CONTINUE FOR 4 DAYS. Problem List - Problems (1) Diabetes mellitus Code(s): E11.9 - TYPE 2 DIABETES MELLITUS WITHOUT COMPLICATIONS (2) Perforation bowel Code(s): K63.1 - PERFORATION OF INTESTINE (NONTRAUMATIC) (3) Septic shock Code(s): A41.9 - SEPSIS, UNSPECIFIED ORGANISM R65.21 - SEVERE SEPSIS WITH SEPTIC SHOCK Assessment/Plan sigmoid perforation s/p transverse loop ileostomy Peritoneal abscesses septic shock DM pt extubated afebrile continue Meropenem and Caspofungin follow up pending culture results monitor wbc, vitals continue close monitoring cc time: 45 min
[2017-02-13] MEDS: CASPOFUNGIN ACETATE 50 MG in SODIUM CHLORIDE 250 ML IVPB SCH (17:00)
[2017-02-14] MEDS: HEPARIN NA (PORCINE) 5,000 UNITS/ML 1ML VIAL SQ SCH ×4 (00:08→22:05)
[2017-02-14] MEDS: morphine CARPU-JECT 4 MG/1 ML DISP.SYRIN IVPUSH PRN ×5 (00:08→23:07)
[2017-02-14] MEDS: MEROPENEM 1 GM in DEXTROSE 5%-WATER - 100 ML IVPB SCH ×3 (02:00→17:42)
[2017-02-14 06:28] LABS: MCH 33.3 pg (25.7-33.7); MCHC 34.2 g/dl (32.0-36.0); MEAN CELL VOLUME 97.3 fl (80-96); MEAN PLT VOLUME 8.7 fl (7.5-11.1); PLATELET COUNT 393 K/MM3 (134-434); RDW 15.6 % (11.6-15.6); WHITE BLOOD COUNT 16.9 K/mm3 (4.0-10.0)
[2017-02-14 07:05] LABS: ALBUMIN 1.4 g/dl (3.4-5.0); ANION GAP 5 (8-16); BILIRUBIN,DIRECT 0.4 mg/dL (0.0-0.2); CALCIUM 7.1 mg/dL (8.5-10.1); CO2 30 mmol/L (21-32); CREATININE 0.5 mg/dL (0.55-1.02); GLUCOSE,RANDOM 103 mg/dL (74-106); PHOSPHOROUS 2.4 mg/dL (2.5-4.9); SGOT/AST 51 U/L (15-37)
[2017-02-14 07:12] LABS: ALK PHOS 51 U/L (45-117); BILIRUBIN,TOTAL 0.6 mg/dL (0.2-1.0); SGPT/ALT 20 U/L (12-78); TOT PROT 4.7 g/dl (6.4-8.2)
[2017-02-14] MEDS: NOREPINEPHRINE BITARTRATE 4,000 MCG in DEXTROSE 5%-WATER - 496 ML IV SCH (07:18)
--- NOTE | 2017-02-14 07:52 | PN ---
Progress Note (short form) - Note Progress Note: PULMONARY/CRITICAL CARE FOLLOW UP: Progress Note (short form) - Note Progress Note: PULM/CCM Pt seen and examined in ICU 24 HOUR EVENTS: -Doing well extubated, on 3L NC, no distress -No BM or flatus yet -Off pressors Current Medications Heparin Sodium (Porcine) (Heparin -) 5,000 unit SQ TID RAF Last Admin: 02/14/17 07:13 Dose: 5,000 unit Pantoprazole Sodium (Protonix 40mg Ivpb (Pre-Docked)) 100 mls @ 200 mls/hr IVPB DAILY RAF Last Admin: 02/13/17 10:03 Dose: 200 mls/hr Caspofungin 50 mg/ Sodium (Chloride) 250 mls @ 250 mls/hr IVPB DAILY RAF Last Admin: 02/13/17 17:00 Dose: 250 mls/hr Meropenem 1 gm/ Dextrose 100 mls @ 200 mls/hr IVPB Q8H-IV RAF PRN Reason: Protocol Last Admin: 02/14/17 02:00 Dose: 200 mls/hr Insulin Aspart (Novolog Vial Sliding Scale -) 1 vial SQ ACHS RAF PRN Reason: Protocol Last Admin: 02/13/17 22:00 Dose: Not Given Morphine Sulfate (Morphine Injection -) 4 mg IVPUSH Q3H PRN PRN Reason: PAIN Last Admin: 02/14/17 00:08 Dose: 4 mg Ondansetron HCl (Zofran Injection) 4 mg IVPUSH Q6H PRN PRN Reason: NAUSEA AND/OR VOMITING Vital Signs Temp 99 F 02/14/17 02:00 Pulse 84 02/14/17 06:00 Resp 20 02/14/17 06:00 BP 149/80 02/14/17 06:00 Pulse Ox 99 02/13/17 18:52 Intake & Output 02/13/17 02/14/17 02/14/17 18:59 06:59 18:59 Intake Total 822.5 Output Total 800 850 Balance -800 -27.5 Weight 90.8 kg Intake: IV 112.5 Levophed - 4,000 Mcg In 112.5 D5w - 496 ml @ 5 MCG/MIN 37.5 mls/hr IV TITR RAF Rx#:[id number] IVPB 710 Output: Urine 800 850 Escobar 800 850 Other: Voiding Method Indwelling Catheter Indwelling Catheter Bowel Movement No Weight Measurement Method Built in [facility] EXAM: neuro: awake, alert HEENT: PERRL, L IJ TLC lungs: slight exp wheeze heart: RRR abd: obese, distended, appropriately tender ext: trace edema, warm skin: warm, dry CBC, BMP 02/14/17 05:15 02/14/17 05:15 Problem List - Problems (1) Acute abdomen Code(s): R10.0 - ACUTE ABDOMEN (2) Diabetes mellitus Code(s): E11.9 - TYPE 2 DIABETES MELLITUS WITHOUT COMPLICATIONS (3) Obesity Code(s): E66.9 - OBESITY, UNSPECIFIED Qualifiers: Obesity type: due to excess calories (4) Perforation bowel Code(s): K63.1 - PERFORATION OF INTESTINE (NONTRAUMATIC) (5) Septic shock Code(s): A41.9 - SEPSIS, UNSPECIFIED ORGANISM R65.21 - SEVERE SEPSIS WITH SEPTIC SHOCK Assessment/Plan S/P Ex-LAp for perforated viscous, drainage of multiple intra-abdominal abscesses, sigmoid resection, colorectal anastamosis, & transverse loop colostomy Resolved post-op Respiratory Failure HTN DM Smoker Intra-abominal sepsis -NPO -NGT -Await return of bowel function -O2, Incentive spirometer, OOB to chair today -Pain management -Albuterol TID and PRN -ABX per ID, if infiltrate increases will add vanco/AG for VAP Transfer to the floor Augustine Song Pulm/Critical Care EVENT SPECIALIST [employer]OD 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
[2017-02-14] MEDS: INSULIN SLIDING SCALE (NOVOLOG) 1 VIAL SQ SCH ×4 (08:55→22:05)
[2017-02-14] MEDS ORDERED: PT OWN MED DRAWER 7, Y5N ONE ×2 (10:13→17:39)
[2017-02-14] MEDS ORDERED: HEMOQUE TEST 1 EACH EACH ONE (10:24)
[2017-02-14] MEDS: CASPOFUNGIN ACETATE 50 MG in SODIUM CHLORIDE 250 ML IVPB SCH (10:28)
[2017-02-14] MEDS: PANTOPRAZOLE SODIUM 100 ML IVPB SCH (10:28)
[2017-02-14] MEDS ORDERED: ALBUTEROL SO4 2.5/IPRATROPIUM 0.5 INH SOL 3 ML VIAL.NEB. NEB SCH (14:00)
[2017-02-14] MEDS ORDERED: ONDANSETRON 4 MG/2 ML VIAL IVPUSH PRN (15:22)
[2017-02-14] MEDS: METRONIDAZOLE 500 MG PREMIXED 100 ML IVPB SCH (19:36)
--- NOTE | 2017-02-14 21:42 | PN ---
Progress Note, Physician History of Present Illness: Pt alert and stable States she feels better Has productive cough for transfer to floors - Current Medication List Current Medications: Active Medications Albuterol/Ipratropium (Duoneb -) 1 amp NEB TIDR [facility] Heparin Sodium (Porcine) (Heparin -) 5,000 unit SQ TID [facility] Caspofungin 50 mg/ Sodium (Chloride) 250 mls @ 250 mls/hr IVPB DAILY [facility] Meropenem 1 gm/ Dextrose 100 mls @ 200 mls/hr IVPB Q8H-IV [facility] PRN Reason: Protocol Last Admin: 02/14/17 17:42 Dose: 200 mls/hr Pantoprazole Sodium (Protonix 40mg Ivpb (Pre-Docked)) 100 mls @ 200 mls/hr IVPB DAILY [facility] Insulin Aspart (Novolog Vial Sliding Scale -) 1 vial SQ ACHS [facility] PRN Reason: Protocol Last Admin: 02/14/17 17:38 Dose: Not Given Morphine Sulfate (Morphine Injection -) 4 mg IVPUSH Q3H PRN PRN Reason: PAIN Last Admin: 02/14/17 19:49 Dose: 4 mg Ondansetron HCl (Zofran Injection) 4 mg IVPUSH Q6H PRN PRN Reason: NAUSEA AND/OR VOMITING - Objective Vital Signs: Vital Signs Temperature 98.3 F 02/14/17 10:38 Pulse Rate 80 02/14/17 16:00 Respiratory Rate 21 02/14/17 16:00 Blood Pressure 149/66 02/14/17 16:00 O2 Sat by Pulse Oximetry (%) 99 02/14/17 08:17 Constitutional: Yes: No Distress Cardiovascular: Yes: Regular Rate and Rhythm Respiratory: Yes: Wheezes (mild expiratory wheeze, decreased breath sounds in bases) Gastrointestinal: Yes: Soft, Distention, Tenderness (diffuse), Other (+ ileostomy) Extremities: Yes: WNL Wound/Incision: Yes: Dressing Dry and Intact Labs: CBC, BMP 02/14/17 05:15 02/14/17 05:15 INR, PTT INR 1.29 (0.82-1.09) H 02/11/17 18:52 Microbiology 02/11/17 20:14 Blood Culture - Preliminary Blood - Peripheral Venous NO GROWTH OBTAINED AFTER 72 HOURS, INCUBATION TO CONTINUE FOR 2 DAYS. 02/11/17 20:14 Blood Culture - Preliminary Blood - Peripheral Venous NO GROWTH OBTAINED AFTER 72 HOURS, INCUBATION TO CONTINUE FOR 2 DAYS. 02/12/17 01:45 Gram Stain - Final Peritoneal Cavity Swab Wound Culture - Final Escherichia Coli Streptococcus Viridans 02/12/17 01:45 Gram Stain - Final Abscess Wound Culture - Preliminary Enterococcus Avium Escherichia Coli Streptococcus Viridans 02/13/17 11:50 Gram Stain - Final Sputum - Expectorated Sputum Culture - Preliminary - ....Imaging Chest X-ray: Report Reviewed Problem List - Problems (1) Diabetes mellitus Code(s): E11.9 - TYPE 2 DIABETES MELLITUS WITHOUT COMPLICATIONS (2) Perforation bowel Code(s): K63.1 - PERFORATION OF INTESTINE (NONTRAUMATIC) (3) Septic shock Code(s): A41.9 - SEPSIS, UNSPECIFIED ORGANISM R65.21 - SEVERE SEPSIS WITH SEPTIC SHOCK Assessment/Plan Intestinal Perforation s/p transverse loop ileostomy Peritoneal abscesses Sepsis Possible Pneumonia Leukocytosis s/p respiratory failure - continue Meropenem and caspofungin - add Vancomycin 1.25G IV Q12h, monitor renal function f/u respiratory culture - continue monitor wbc , vitals
[2017-02-14] MEDS ORDERED: VANCOMYCIN 1,250 MG in DEXTROSE 5%-WATER - 250 ML IVPB SCH (22:00)
[2017-02-14] MEDS ORDERED: INSULIN (NOVOLOG) ASPART 100 UNITS/ML 10ML VIAL ONE (22:11)
[2017-02-14] MEDS: ALBUTEROL SO4 2.5/IPRATROPIUM 0.5 INH SOL 3 ML VIAL.NEB. NEB SCH (22:13)
--- NOTE | 2017-02-14 23:06 | PN ---
Progress Note, Physician History of Present Illness: Pt more awake - Current Medication List Current Medications: Active Medications Albuterol/Ipratropium (Duoneb -) 1 amp NEB TIDR [facility] Heparin Sodium (Porcine) (Heparin -) 5,000 unit SQ TID [facility] Last Admin: 02/14/17 22:05 Dose: 5,000 unit Caspofungin 50 mg/ Sodium (Chloride) 250 mls @ 250 mls/hr IVPB DAILY [facility] Meropenem 1 gm/ Dextrose 100 mls @ 200 mls/hr IVPB Q8H-IV [facility] PRN Reason: Protocol Last Admin: 02/14/17 17:42 Dose: 200 mls/hr Pantoprazole Sodium (Protonix 40mg Ivpb (Pre-Docked)) 100 mls @ 200 mls/hr IVPB DAILY [facility] Vancomycin HCl 1,250 mg/ (Dextrose) 250 mls @ 166.667 mls/hr IVPB BID [facility] PRN Reason: Protocol Last Admin: 02/14/17 22:30 Dose: 166.667 mls/hr Insulin Aspart (Novolog Vial Sliding Scale -) 1 vial SQ ACHS [facility] PRN Reason: Protocol Last Admin: 02/14/17 22:05 Dose: 2 units Morphine Sulfate (Morphine Injection -) 4 mg IVPUSH Q3H PRN PRN Reason: PAIN Last Admin: 02/14/17 19:49 Dose: 4 mg Ondansetron HCl (Zofran Injection) 4 mg IVPUSH Q6H PRN PRN Reason: NAUSEA AND/OR VOMITING - Objective Vital Signs: Vital Signs Temperature 99.3 F 02/14/17 20:00 Pulse Rate 76 02/14/17 20:00 Respiratory Rate 18 02/14/17 20:00 Blood Pressure 151/60 02/14/17 20:00 O2 Sat by Pulse Oximetry (%) 99 02/14/17 08:17 Constitutional: Yes: Well Nourished HENT: Yes: WNL Neck: Yes: WNL, Supple Cardiovascular: Yes: WNL, Regular Rate and Rhythm Respiratory: Yes: Diminished Gastrointestinal: Yes: Soft, Abdomen, Obese Labs: CBC, BMP 02/14/17 05:15 02/14/17 05:15 INR, PTT INR 1.29 (0.82-1.09) H 02/11/17 18:52 Problem List - Problems (1) Perforation bowel Assessment/Plan: S/P exp lap for perforation and intra-abdominal abscess S/P ileostomy Cont wound care Pt extubated Cont IV antibxs Code(s): K63.1 - PERFORATION OF INTESTINE (NONTRAUMATIC) (2) Sepsis Assessment/Plan: Intra-abdominal abscess Cont IV meropenem Increased WBC ?Pneumonia IV vanco added Follow cultures Code(s): A41.9 - SEPSIS, UNSPECIFIED ORGANISM (3) Diabetes mellitus Assessment/Plan: Cont sliding scale w/ novolog Code(s): E11.9 - TYPE 2 DIABETES MELLITUS WITHOUT COMPLICATIONS (4) Obesity Code(s): E66.9 - OBESITY, UNSPECIFIED Qualifiers: Obesity type: due to excess calories
[2017-02-15] MEDS: MEROPENEM 1 GM in DEXTROSE 5%-WATER - 100 ML IVPB SCH (01:07)
[2017-02-15] MEDS: morphine CARPU-JECT 4 MG/1 ML DISP.SYRIN IVPUSH PRN ×5 (04:07→21:28)
[2017-02-15] MEDS: ALBUTEROL SO4 2.5/IPRATROPIUM 0.5 INH SOL 3 ML VIAL.NEB. NEB SCH ×3 (06:31→23:01)
[2017-02-15] MEDS: HEPARIN NA (PORCINE) 5,000 UNITS/ML 1ML VIAL SQ SCH ×3 (06:34→22:55)
[2017-02-15] MEDS: INSULIN SLIDING SCALE (NOVOLOG) 1 VIAL SQ SCH ×4 (06:34→23:01)
[2017-02-15 06:41] LABS: MCH 33.1 pg (25.7-33.7); MCHC 34.3 g/dl (32.0-36.0); MEAN CELL VOLUME 96.3 fl (80-96); MEAN PLT VOLUME 8.6 fl (7.5-11.1); PLATELET COUNT 421 K/MM3 (134-434); RDW 15.2 % (11.6-15.6); WHITE BLOOD COUNT 11.5 K/mm3 (4.0-10.0)
[2017-02-15 07:00] LABS: ANION GAP 9 (8-16); CALCIUM 7.6 mg/dL (8.5-10.1); CO2 30 mmol/L (21-32); CREATININE 0.4 mg/dL (0.55-1.02); GLUCOSE,RANDOM 126 mg/dL (74-106); MAGNESIUM 3.3 mg/dL (1.8-2.4); PHOSPHOROUS 2.8 mg/dL (2.5-4.9)
--- NOTE | 2017-02-15 09:01 | PN ---
Progress Note, Physician - Current Medication List Current Medications: Active Medications Albuterol/Ipratropium (Duoneb -) 1 amp NEB TIDR [facility] Last Admin: 02/15/17 06:31 Dose: 1 amp Heparin Sodium (Porcine) (Heparin -) 5,000 unit SQ TID [facility] Last Admin: 02/15/17 06:34 Dose: 5,000 unit Caspofungin 50 mg/ Sodium (Chloride) 250 mls @ 250 mls/hr IVPB DAILY [facility] Meropenem 1 gm/ Dextrose 100 mls @ 200 mls/hr IVPB Q8H-IV [facility] PRN Reason: Protocol Last Admin: 02/15/17 01:07 Dose: 200 mls/hr Pantoprazole Sodium (Protonix 40mg Ivpb (Pre-Docked)) 100 mls @ 200 mls/hr IVPB DAILY [facility] Vancomycin HCl 1,250 mg/ (Dextrose) 250 mls @ 166.667 mls/hr IVPB BID [facility] PRN Reason: Protocol Last Admin: 02/14/17 22:30 Dose: 166.667 mls/hr Insulin Aspart (Novolog Vial Sliding Scale -) 1 vial SQ ACHS [facility] PRN Reason: Protocol Last Admin: 02/15/17 06:34 Dose: Not Given Morphine Sulfate (Morphine Injection -) 4 mg IVPUSH Q3H PRN PRN Reason: PAIN Last Admin: 02/15/17 06:41 Dose: 4 mg Ondansetron HCl (Zofran Injection) 4 mg IVPUSH Q6H PRN PRN Reason: NAUSEA AND/OR VOMITING - Objective Vital Signs: Vital Signs Temperature 98.9 F 02/15/17 06:00 Pulse Rate 70 02/15/17 06:00 Respiratory Rate 13 02/15/17 06:00 Blood Pressure 152/79 02/15/17 06:00 O2 Sat by Pulse Oximetry (%) 99 02/14/17 21:00 Labs: CBC, BMP 02/15/17 05:30 02/15/17 05:30 INR, PTT INR 1.29 (0.82-1.09) H 02/11/17 18:52 Problem List - Problems (1) Perforation bowel Code(s): K63.1 - PERFORATION OF INTESTINE (NONTRAUMATIC) (2) Acute abdomen Code(s): R10.0 - ACUTE ABDOMEN (3) Obesity Code(s): E66.9 - OBESITY, UNSPECIFIED Qualifiers: (4) Diabetes mellitus Code(s): E11.9 - TYPE 2 DIABETES MELLITUS WITHOUT COMPLICATIONS Assessment/Plan Surgery: Patient is afebrile Wound is clean , granulating. Tolerating liquids. Abdominal dressing changed. NG tube removed. Will progress to full liquids, Apply VAC dressing. Out of bed . Continue antibiotics. PT D/C amador catheter.
[2017-02-15] MEDS: PANTOPRAZOLE SODIUM 100 ML IVPB SCH (09:14)
--- NOTE | 2017-02-15 09:30 | PN ---
Progress Note, Physician History of Present Illness: patient looking much better extubated no new issues overall much better ng tube removed - Current Medication List Current Medications: Active Medications Albuterol/Ipratropium (Duoneb -) 1 amp NEB TIDR [facility] Last Admin: 02/15/17 06:31 Dose: 1 amp Heparin Sodium (Porcine) (Heparin -) 5,000 unit SQ TID [facility] Last Admin: 02/15/17 06:34 Dose: 5,000 unit Caspofungin 50 mg/ Sodium (Chloride) 250 mls @ 250 mls/hr IVPB DAILY [facility] Pantoprazole Sodium (Protonix 40mg Ivpb (Pre-Docked)) 100 mls @ 200 mls/hr IVPB DAILY [facility] Piperacillin Sod/Tazobactam (Sod 3.375 gm/ Dextrose) 50 mls @ 100 mls/hr IVPB Q8H-IV [facility] PRN Reason: Protocol Insulin Aspart (Novolog Vial Sliding Scale -) 1 vial SQ ACHS [facility] PRN Reason: Protocol Last Admin: 02/15/17 06:34 Dose: Not Given Morphine Sulfate (Morphine Injection -) 4 mg IVPUSH Q3H PRN PRN Reason: PAIN Last Admin: 02/15/17 06:41 Dose: 4 mg Ondansetron HCl (Zofran Injection) 4 mg IVPUSH Q6H PRN PRN Reason: NAUSEA AND/OR VOMITING - Objective Vital Signs: Vital Signs Temperature 98.9 F 02/15/17 06:00 Pulse Rate 76 02/15/17 08:00 Respiratory Rate 20 02/15/17 08:00 Blood Pressure 151/79 02/15/17 08:00 O2 Sat by Pulse Oximetry (%) 99 02/14/17 21:00 Constitutional: Yes: No Distress, Calm Cardiovascular: Yes: Regular Rate and Rhythm Respiratory: Yes: Regular, CTA Bilaterally Gastrointestinal: Yes: Soft, Hypoactive Bowel Sounds Extremities: Yes: Other Edema: LLE: 1+, RLE: 1+ Wound/Incision: Yes: Other (wound clan,dressing changed) Neurological: Yes: Alert, Oriented Psychiatric: Yes: Alert, Oriented Labs: CBC, BMP 02/15/17 05:30 02/15/17 05:30 INR, PTT INR 1.29 (0.82-1.09) H 02/11/17 18:52 - ....Imaging Chest X-ray: Report Reviewed, Image Reviewed Assessment/Plan Problem List - Problems (1) Acute abdomen Code(s): R10.0 - ACUTE ABDOMEN (2) Diabetes mellitus Code(s): E11.9 - TYPE 2 DIABETES MELLITUS WITHOUT COMPLICATIONS (3) Obesity Code(s): E66.9 - OBESITY, UNSPECIFIED Qualifiers: Obesity type: due to excess calories (4) Perforation bowel Code(s): K63.1 - PERFORATION OF INTESTINE (NONTRAUMATIC) (5) Septic shock Code(s): A41.9 - SEPSIS, UNSPECIFIED ORGANISM R65.21 - SEVERE SEPSIS WITH SEPTIC SHOCK all the factors seen plan switched abx to zosyn stopped vanco continue monitoring wound care rest as per primary/icu cc time 40 min
[2017-02-15] MEDS: PIPERACILLIN/TAZOB 3.375 GM 50 ML IVPB SCH ×2 (09:43→17:09)
[2017-02-15] MEDS ORDERED: PIPERACILLIN/TAZOB 3.375 GM 3.375 GM in DEXTROSE 5%-WATER - 50 ML IVPB SCH (10:00)
[2017-02-15] MEDS: CASPOFUNGIN ACETATE 50 MG in SODIUM CHLORIDE 250 ML IVPB SCH (10:31)
--- NOTE | 2017-02-15 14:35 | PN ---
Physical Exam: Medicine coverage for Dr. Montero SUBJECTIVE: Patient seen and examined in ICU. She is oob to chair having pain, otherwise enjoyed eating today OBJECTIVE: Vital Signs Period Temp Pulse Resp BP Sys/Palencia Pulse Ox Last 24 Hr 98.6 F-99.5 F 70-80 13-21 140-165/60-88 92-100 PE Neuro: awake, alert, cn 2-12intact heent: l IJ Pulm: CTAB Cv: s1 s2 rrr Abd: colostomy with serous outpt, incision dressed cdi Ext: warm, no le edema Laboratory Results - last 24 hr 02/15/17 02/15/17 02/15/17 05:30 05:30 06:31 WBC 11.5 H D RBC 3.16 L Hgb 10.4 L Hct 30.4 L MCV 96.3 H MCH 33.1 MCHC 34.3 RDW 15.2 Plt Count 421 MPV 8.6 Neutrophils % 76.0 Lymphocytes % 8.0 D Monocytes % 8.0 Band Neutrophils 8.0 Sodium 139 Potassium 3.5 Chloride 100 Carbon Dioxide 30 Anion Gap 9 BUN 10 D Creatinine 0.4 L POC Glucometer 150.87139 Random Glucose 126 H D Calcium 7.6 L Phosphorus 2.8 Magnesium 3.3 H Active Medications Generic Name Dose Route Start Last Admin Trade Name Mike PRN Reason Stop Dose Admin Albuterol/Ipratropium 1 amp 02/14/17 22:00 02/15/17 13:57 Duoneb - NEB 1 amp TIDR [facility] Administration Heparin Sodium (Porcine) 5,000 unit 02/14/17 22:00 02/15/17 14:19 Heparin - SQ 5,000 unit TID [facility] Administration Caspofungin 50 mg/ Sodium 250 mls @ 250 mls/hr 02/15/17 10:00 02/15/17 10:31 Chloride IVPB 250 mls/hr DAILY [facility] Administration Pantoprazole Sodium 100 mls @ 200 mls/hr 02/15/17 10:00 02/15/17 09:14 Protonix 40mg Ivpb (Pre-Docked) IVPB 200 mls/hr DAILY [facility] Administration Piperacillin Sod/Tazobactam Sod 50 mls @ 100 mls/hr 02/15/17 10:00 02/15/17 09: 43 Zosyn 3.375gm Ivpb (Pre-Docked) IVPB 100 mls/hr Q8H-IV [facility] Administration Protocol Insulin Aspart 1 vial 02/14/17 16:30 02/15/17 10:30 Novolog Vial Sliding Scale - SQ Not Given ACHS [facility] Protocol Morphine Sulfate 4 mg 02/14/17 15:22 02/15/17 09:47 Morphine Injection - IVPUSH 4 mg Q3H PRN Administration PAIN Ondansetron HCl 4 mg 02/14/17 15:22 Zofran Injection IVPUSH Q6H PRN NAUSEA AND/OR VOMITING Microbiology 02/13/17 11:50 Sputum - Expectorated Gram Stain - Final 02/13/17 11:50 Sputum - Expectorated Sputum Culture - Final 02/12/17 01:45 Abscess Gram Stain - Final 02/12/17 01:45 Abscess Wound Culture - Final Enterococcus Avium Escherichia Coli Streptococcus Viridans 02/11/17 20:14 Blood - Peripheral Venous Blood Culture - Preliminary NO GROWTH OBTAINED AFTER 72 HOURS, INCUBATION TO CONTINUE FOR 2 DAYS. 02/11/17 20:14 Blood - Peripheral Venous Blood Culture - Preliminary NO GROWTH OBTAINED AFTER 72 HOURS, INCUBATION TO CONTINUE FOR 2 DAYS. 02/12/17 01:45 Peritoneal Cavity Swab Gram Stain - Final 02/12/17 01:45 Peritoneal Cavity Swab Wound Culture - Final Escherichia Coli Streptococcus Viridans Plan: 1. Septic shock - Improving - S/P Ex-Lap for perforated viscous, drainage of multiple intra-abdominal abscesses, sigmoid resection, colorectal anastamosis, & transverse loop colostomy - Stop jenny, vanco - Start Zosyn - Continue Caspofungin 2. Perforation bowel - NGT removed - Advance to full liquid diet - Surgery following 3. HTN - Elevated - Resume toprol xl 25mg daily - Resume enalapril 20mg daily 4. Post op Respiratory failure - Extubated - Albuterol TID and PRN 5. DM II - ISS, BGM ACHS Visit type - Emergency Visit Emergency Visit: Yes ED Registration Date: 02/11/17 Care time: The patient presented to the Emergency Department on the above date and was hospitalized for further evaluation of their emergent condition. - New Patient This patient is new to me today: Yes Date on this admission: 02/15/17 - Critical Care Critical Care patient: No
--- NOTE | 2017-02-15 15:05 | SURG ---
Surgery Towel Rolling Machine Operator Note Towel Rolling Machine Operator: Willow Ivy PA-C Date of Service: 02/11/17 Diagnosis: Peritonitis, acute abdomen, perforated viscus, intraabdominal abscess, sepsis, moebid obesity. Procedure: Laparotomy, sigmoid resection , mobilisation of splenic flexure of colon, colorectal anastamosis, transverse loop colostomy,. drainage of multiple intraabdominal abscesses x3, peritoneal washout,. omentectomy , lysis of adhesions. I was present for the entirety of the operative procedure. For further detail, please refer to operative report. Visit type - Case Type Case Type: ED Admission - Emergency Emergency Visit: Yes ED Registration Date: 02/11/17 Care time: The patient presented to the Emergency Department on the above date and was hospitalized for further evaluation of their emergent condition. - New patient This patient is new to me today: Yes Date on this admission: 02/11/17 - Critical Care Critical Care patient: No
--- NOTE | 2017-02-15 16:07 | PN ---
Physical Exam: SUBJECTIVE: Patient seen and examined. S/p extubation. Doing well, no complaints. OBJECTIVE: Vital Signs Period Temp Pulse Resp BP Sys/Palencia Pulse Ox Last 24 Hr 98.6 F-100.0 F 70-87 13-21 140-165/60-99 92-100 GENERAL: The patient is awake, alert, and fully oriented, in no acute distress. HEAD: Normal with no signs of trauma. EYES: extraocular movements intact, sclera anicteric, conjunctiva clear. No ptosis. NECK: Trachea midline, full range of motion, supple. LUNGS: Breath sounds equal, clear to auscultation bilaterally, no wheezes, no crackles, no accessory muscle use. HEART: Regular rate and rhythm, S1, S2 without murmur, rub or gallop. ABDOMEN: Soft, nontender, nondistended, normoactive bowel sounds, no guarding, no rebound. NEUROLOGICAL: Cranial nerves II through X grossly intact. Normal speech, gait not observed. SKIN: Warm, dry, normal turgor, no rashes or lesions noted Laboratory Results - last 24 hr 02/12/17 02/14/17 02/14/17 17:57 17:29 22:04 WBC RBC Hgb Hct MCV MCH MCHC RDW Plt Count MPV Neutrophils % Lymphocytes % Monocytes % Band Neutrophils Sodium Potassium Chloride Carbon Dioxide Anion Gap BUN Creatinine POC Glucometer 206.53763 141.71510 151.65078 Random Glucose Calcium Phosphorus Magnesium 02/15/17 02/15/17 02/15/17 05:30 05:30 06:31 WBC 11.5 H D RBC 3.16 L Hgb 10.4 L Hct 30.4 L MCV 96.3 H MCH 33.1 MCHC 34.3 RDW 15.2 Plt Count 421 MPV 8.6 Neutrophils % 76.0 Lymphocytes % 8.0 D Monocytes % 8.0 Band Neutrophils 8.0 Sodium 139 Potassium 3.5 Chloride 100 Carbon Dioxide 30 Anion Gap 9 BUN 10 D Creatinine 0.4 L POC Glucometer 150.47107 Random Glucose 126 H D Calcium 7.6 L Phosphorus 2.8 Magnesium 3.3 H 02/15/17 09:46 WBC RBC Hgb Hct MCV MCH MCHC RDW Plt Count MPV Neutrophils % Lymphocytes % Monocytes % Band Neutrophils Sodium Potassium Chloride Carbon Dioxide Anion Gap BUN Creatinine POC Glucometer 149.22240 Random Glucose Calcium Phosphorus Magnesium Active Medications Generic Name Dose Route Start Last Admin Trade Name Freq PRN Reason Stop Dose Admin Albuterol/Ipratropium 1 amp 02/14/17 22:00 02/15/17 13:57 Duoneb - NEB 1 amp TIDR [facility] Administration Enalapril Maleate 20 mg 02/15/17 14:45 Vasotec - PO DAILY [facility] Heparin Sodium (Porcine) 5,000 unit 02/14/17 22:00 02/15/17 14:19 Heparin - SQ 5,000 unit TID [facility] Administration Caspofungin 50 mg/ Sodium 250 mls @ 250 mls/hr 02/15/17 10:00 02/15/17 10:31 Chloride IVPB 250 mls/hr DAILY [facility] Administration Pantoprazole Sodium 100 mls @ 200 mls/hr 02/15/17 10:00 02/15/17 09:14 Protonix 40mg Ivpb (Pre-Docked) IVPB 200 mls/hr DAILY [facility] Administration Piperacillin Sod/Tazobactam Sod 50 mls @ 100 mls/hr 02/15/17 10:00 02/15/17 09: 43 Zosyn 3.375gm Ivpb (Pre-Docked) IVPB 100 mls/hr Q8H-IV [facility] Administration Protocol Insulin Aspart 1 vial 02/14/17 16:30 02/15/17 10:30 Novolog Vial Sliding Scale - SQ Not Given ACHS [facility] Protocol Metoprolol Succinate 25 mg 02/15/17 14:45 Toprol Xl - PO DAILY [facility] Morphine Sulfate 4 mg 02/14/17 15:22 02/15/17 09:47 Morphine Injection - IVPUSH 4 mg Q3H PRN Administration PAIN Ondansetron HCl 4 mg 02/14/17 15:22 Zofran Injection IVPUSH Q6H PRN NAUSEA AND/OR VOMITING ASSESSMENT/PLAN: 66 yo F w/ PMH HTN, DMII, diverticulosis s/p colonic resection 2/2 bowel perforation 2/2 diverticulitis Pulmonary -s/p extubation ON 02/14 -saturating well on room air Cardio -PMH HTN -BP controlled -c/w vasotec and lopressor Abdominal -s/p colonic resection 2/2 diverticulitis with perforation -ostomy site appears well perfused -gas in bag -c/w zosyn -d/c amador FEN -no indication for fluids at this time -monitor lytes -full liquid diet; advance per surgery Dispo -continue to monitor in ICU Problem List - Problems (1) Acute abdomen Code(s): R10.0 - ACUTE ABDOMEN (2) Diabetes mellitus Code(s): E11.9 - TYPE 2 DIABETES MELLITUS WITHOUT COMPLICATIONS (3) Perforation bowel Code(s): K63.1 - PERFORATION OF INTESTINE (NONTRAUMATIC) (4) Sepsis Code(s): A41.9 - SEPSIS, UNSPECIFIED ORGANISM (5) Hypertension Code(s): I10 - ESSENTIAL (PRIMARY) HYPERTENSION Visit type - Emergency Visit Emergency Visit: Yes ED Registration Date: 02/11/17 Care time: The patient presented to the Emergency Department on the above date and was hospitalized for further evaluation of their emergent condition. - New Patient This patient is new to me today: No - Critical Care Critical Care patient: Yes Total Critical Care Time (in minutes): 35 Critical Care Statement: The care of this patient involved high complexity decision making to prevent further life threatening deterioration of the patient 's condition and/or to evalute & treat vital organ system(s) failure or risk of failure.
[2017-02-15] MEDS: ENALAPRIL MALEATE 10 MG TABLET (FP) PO SCH (16:34)
[2017-02-15] MEDS: METOPROLOL SUCCINATE 25 MG TAB.SR.24H (FP) PO SCH (16:35)
--- NOTE | 2017-02-15 17:09 | PN ---
Teaching Attending Note Name of Resident: Jose Elias Rea ATTENDING PHYSICIAN STATEMENT I saw and evaluated the patient. I reviewed the resident's note and discussed the case with the resident. I agree with the resident's findings and plan as documented. SUBJECTIVE: Patient seen and examined in the ICU. Awake and alert. Voice is raspy and reports sore throat (likely from being intubated). No CP. Some dry cough. Intake & Output 02/12/17 02/13/17 02/14/17 02/15/17 23:59 23:59 23:59 23:59 Intake Total 5874 2543.5 650 450 Output Total 700 1800 1750 550 Balance 5174 743.5 -1100 -100 Weight 188 lb 11.451 oz 200 lb 2.876 oz 200 lb 4.8 oz Last Vital Signs Temp Pulse Resp BP Pulse Ox 100.0 F H 87 21 145/99 92 L 02/15/17 14:00 02/15/17 14:00 02/15/17 14:00 02/15/17 14:00 02/15/17 10:40 Active Medications Albuterol/Ipratropium (Duoneb -) 1 amp NEB TIDR [facility] Last Admin: 02/15/17 13:57 Dose: 1 amp Enalapril Maleate (Vasotec -) 20 mg PO DAILY [facility] Heparin Sodium (Porcine) (Heparin -) 5,000 unit SQ TID [facility] Last Admin: 02/15/17 14:19 Dose: 5,000 unit Caspofungin 50 mg/ Sodium (Chloride) 250 mls @ 250 mls/hr IVPB DAILY [facility] Last Admin: 02/15/17 10:31 Dose: 250 mls/hr Pantoprazole Sodium (Protonix 40mg Ivpb (Pre-Docked)) 100 mls @ 200 mls/hr IVPB DAILY [facility] Last Admin: 02/15/17 09:14 Dose: 200 mls/hr Piperacillin Sod/Tazobactam Sod (Zosyn 3.375gm Ivpb (Pre-Docked)) 50 mls @ 100 mls/hr IVPB Q8H-IV [facility] PRN Reason: Protocol Last Admin: 02/15/17 09:43 Dose: 100 mls/hr Insulin Aspart (Novolog Vial Sliding Scale -) 1 vial SQ ACHS [facility] PRN Reason: Protocol Last Admin: 02/15/17 10:30 Dose: Not Given Metoprolol Succinate (Toprol Xl -) 25 mg PO DAILY [facility] Morphine Sulfate (Morphine Injection -) 4 mg IVPUSH Q3H PRN PRN Reason: PAIN Last Admin: 02/15/17 09:47 Dose: 4 mg Ondansetron HCl (Zofran Injection) 4 mg IVPUSH Q6H PRN PRN Reason: NAUSEA AND/OR VOMITING GENERAL: The patient is awake, alert, and fully oriented, in no acute distress. HEAD: Normal with no signs of trauma. EYES: extraocular movements intact, sclera anicteric, conjunctiva clear. No ptosis. NECK: Trachea midline, full range of motion, supple. LUNGS: Breath sounds equal, clear to auscultation bilaterally, no wheezes, no crackles Cardiac: RRR, (-) murmur, rub or gallop. ABDOMEN: Soft, (+) functioning ostomy, (+) BS, mild appropriate tenderness NEUROLOGICAL: Non-focal SKIN: Warm, dry, surgical wound appears clean Laboratory Results - last 24 hr 02/12/17 02/14/17 02/14/17 17:57 17:29 22:04 WBC RBC Hgb Hct MCV MCH MCHC RDW Plt Count MPV Neutrophils % Lymphocytes % Monocytes % Band Neutrophils Sodium Potassium Chloride Carbon Dioxide Anion Gap BUN Creatinine POC Glucometer 206.62520 141.52377 151.15859 Random Glucose Calcium Phosphorus Magnesium 02/15/17 02/15/17 02/15/17 05:30 05:30 06:31 WBC 11.5 H D RBC 3.16 L Hgb 10.4 L Hct 30.4 L MCV 96.3 H MCH 33.1 MCHC 34.3 RDW 15.2 Plt Count 421 MPV 8.6 Neutrophils % 76.0 Lymphocytes % 8.0 D Monocytes % 8.0 Band Neutrophils 8.0 Sodium 139 Potassium 3.5 Chloride 100 Carbon Dioxide 30 Anion Gap 9 BUN 10 D Creatinine 0.4 L POC Glucometer 150.39208 Random Glucose 126 H D Calcium 7.6 L Phosphorus 2.8 Magnesium 3.3 H 02/15/17 09:46 WBC RBC Hgb Hct MCV MCH MCHC RDW Plt Count MPV Neutrophils % Lymphocytes % Monocytes % Band Neutrophils Sodium Potassium Chloride Carbon Dioxide Anion Gap BUN Creatinine POC Glucometer 149.39385 Random Glucose Calcium Phosphorus Magnesium ASSESSMENT/PLAN: S/P bowel perforation/diverticulitis Diverticulosis HTN DM Problem List - Problems (1) Acute abdomen Code(s): R10.0 - ACUTE ABDOMEN (2) Diabetes mellitus Code(s): E11.9 - TYPE 2 DIABETES MELLITUS WITHOUT COMPLICATIONS (3) Perforation bowel Code(s): K63.1 - PERFORATION OF INTESTINE (NONTRAUMATIC) (4) Sepsis Code(s): A41.9 - SEPSIS, UNSPECIFIED ORGANISM (5) Hypertension Code(s): I10 - ESSENTIAL (PRIMARY) HYPERTENSION PLAN: ABX per ID O2 as needed Incentive Spirometry BD TX Glycemic control VTE prophylaxis PO per surgery - Critical Care Critical Care patient: Yes Total Critical Care Time (in minutes): 35 Critical Care Statement: The care of this patient involved high complexity decision making to prevent further life threatening deterioration of the patient 's condition and/or to evalute & treat vital organ system(s) failure or risk of failure.
[2017-02-16] MEDS: PIPERACILLIN/TAZOB 3.375 GM 50 ML IVPB SCH ×3 (02:28→17:32)
[2017-02-16] MEDS: morphine CARPU-JECT 4 MG/1 ML DISP.SYRIN IVPUSH PRN ×6 (02:40→22:39)
[2017-02-16] MEDS: HEPARIN NA (PORCINE) 5,000 UNITS/ML 1ML VIAL SQ SCH ×3 (05:53→21:07)
[2017-02-16] MEDS: INSULIN SLIDING SCALE (NOVOLOG) 1 VIAL SQ SCH ×4 (06:00→21:06)
[2017-02-16] MEDS: ALBUTEROL SO4 2.5/IPRATROPIUM 0.5 INH SOL 3 ML VIAL.NEB. NEB SCH ×3 (06:16→22:12)
[2017-02-16 06:39] LABS: BASOPHIL 0.3 % (0-2.0); EOSINOPHIL 0.4 % (0-4.5); MCH 33.5 pg (25.7-33.7); MCHC 34.7 g/dl (32.0-36.0); MEAN CELL VOLUME 96.5 fl (80-96); MEAN PLT VOLUME 8.3 fl (7.5-11.1); NEUTROPHILS 79.2 % (42.8-82.8); PLATELET COUNT 470 K/MM3 (134-434); RDW 15.1 % (11.6-15.6); WHITE BLOOD COUNT 10.1 K/mm3 (4.0-10.0)
[2017-02-16 07:12] LABS: ALBUMIN 1.6 g/dl (3.4-5.0); ANION GAP 9 (8-16); CALCIUM 7.5 mg/dL (8.5-10.1); CO2 31 mmol/L (21-32); GLUCOSE,RANDOM 109 mg/dL (74-106); MAGNESIUM 2.9 mg/dL (1.8-2.4)
[2017-02-16 07:17] LABS: ALK PHOS 64 U/L (45-117); BILIRUBIN,TOTAL 0.7 mg/dL (0.2-1.0); CREATININE 0.4 mg/dL (0.55-1.02); SGOT/AST 43 U/L (15-37); SGPT/ALT 21 U/L (12-78); TOT PROT 5.2 g/dl (6.4-8.2)
[2017-02-16] MEDS ORDERED: PT OWN MED DRAWER 7, Y5N ONE (10:16)
[2017-02-16] MEDS: PANTOPRAZOLE SODIUM 100 ML IVPB SCH (10:18)
[2017-02-16] MEDS: ENALAPRIL MALEATE 10 MG TABLET (FP) PO SCH (10:19)
[2017-02-16] MEDS: METOPROLOL SUCCINATE 25 MG TAB.SR.24H (FP) PO SCH (10:19)
[2017-02-16] MEDS: CASPOFUNGIN ACETATE 50 MG in SODIUM CHLORIDE 250 ML IVPB SCH (11:41)
--- NOTE | 2017-02-16 12:04 | PN ---
Progress Note, Physician - Current Medication List Current Medications: Active Medications Albuterol/Ipratropium (Duoneb -) 1 amp NEB TIDR [facility] Last Admin: 02/16/17 06:16 Dose: 1 amp Enalapril Maleate (Vasotec -) 20 mg PO DAILY [facility] Last Admin: 02/16/17 10:19 Dose: 20 mg Heparin Sodium (Porcine) (Heparin -) 5,000 unit SQ TID [facility] Last Admin: 02/16/17 05:53 Dose: 5,000 unit Caspofungin 50 mg/ Sodium (Chloride) 250 mls @ 250 mls/hr IVPB DAILY [facility] Last Admin: 02/16/17 11:41 Dose: 250 mls/hr Pantoprazole Sodium (Protonix 40mg Ivpb (Pre-Docked)) 100 mls @ 200 mls/hr IVPB DAILY [facility] Last Admin: 02/16/17 10:18 Dose: 200 mls/hr Piperacillin Sod/Tazobactam Sod (Zosyn 3.375gm Ivpb (Pre-Docked)) 50 mls @ 100 mls/hr IVPB Q8H-IV [facility] PRN Reason: Protocol Last Admin: 02/16/17 10:19 Dose: 100 mls/hr Insulin Aspart (Novolog Vial Sliding Scale -) 1 vial SQ ACHS [facility] PRN Reason: Protocol Last Admin: 02/16/17 11:52 Dose: 2 units Metoprolol Succinate (Toprol Xl -) 25 mg PO DAILY [facility] Last Admin: 02/16/17 10:19 Dose: 25 mg Morphine Sulfate (Morphine Injection -) 4 mg IVPUSH Q3H PRN PRN Reason: PAIN Last Admin: 02/16/17 10:38 Dose: 4 mg Ondansetron HCl (Zofran Injection) 4 mg IVPUSH Q6H PRN PRN Reason: NAUSEA AND/OR VOMITING - Objective Vital Signs: Vital Signs Temperature 98.1 F 02/16/17 06:00 Pulse Rate 77 02/16/17 08:00 Respiratory Rate 16 02/16/17 09:00 Blood Pressure 159/99 02/16/17 08:00 O2 Sat by Pulse Oximetry (%) 96 02/16/17 09:00 Labs: CBC, BMP 02/16/17 05:15 02/16/17 05:15 INR, PTT INR 1.29 (0.82-1.09) H 02/11/17 18:52 Problem List - Problems (1) Perforation bowel Code(s): K63.1 - PERFORATION OF INTESTINE (NONTRAUMATIC) (2) Acute abdomen Code(s): R10.0 - ACUTE ABDOMEN (3) Obesity Code(s): E66.9 - OBESITY, UNSPECIFIED Qualifiers: (4) Diabetes mellitus Code(s): E11.9 - TYPE 2 DIABETES MELLITUS WITHOUT COMPLICATIONS Assessment/Plan Surgery: Patient is alert and oriented, Tolerating liquids, Colostomy is pink , with some liquid drainage. Abdominal wound is clean. ' Afebrile, WBC is normal. Progress diet. Wound care , Continue antibiotics.
--- NOTE | 2017-02-16 12:27 | PN ---
Teaching Attending Note Name of Resident: Jose Elias Rea ATTENDING PHYSICIAN STATEMENT I saw and evaluated the patient. I reviewed the resident's note and discussed the case with the resident. I agree with the resident's findings and plan as documented. SUBJECTIVE: Patient seen and examined in the ICU. Awake and alert. Increased abdominal pain this AM after she took some liquids/jello. No CP or SOB. Some dry cough. Intake & Output 02/13/17 02/14/17 02/15/17 02/16/17 23:59 23:59 23:59 23:59 Intake Total 2543.5 650 850 Output Total 1800 1750 1300 Balance 743.5 -1100 -450 Weight 200 lb 2.876 oz 200 lb 4.8 oz Last Vital Signs Temp Pulse Resp BP Pulse Ox 98.1 F 77 16 159/99 96 02/16/17 06:00 02/16/17 08:00 02/16/17 09:00 02/16/17 08:00 02/16/17 09:00 Active Medications Albuterol/Ipratropium (Duoneb -) 1 amp NEB TIDR [facility] Last Admin: 02/16/17 06:16 Dose: 1 amp Enalapril Maleate (Vasotec -) 20 mg PO DAILY [facility] Last Admin: 02/16/17 10:19 Dose: 20 mg Heparin Sodium (Porcine) (Heparin -) 5,000 unit SQ TID [facility] Last Admin: 02/16/17 05:53 Dose: 5,000 unit Caspofungin 50 mg/ Sodium (Chloride) 250 mls @ 250 mls/hr IVPB DAILY [facility] Last Admin: 02/16/17 11:41 Dose: 250 mls/hr Pantoprazole Sodium (Protonix 40mg Ivpb (Pre-Docked)) 100 mls @ 200 mls/hr IVPB DAILY [facility] Last Admin: 02/16/17 10:18 Dose: 200 mls/hr Piperacillin Sod/Tazobactam Sod (Zosyn 3.375gm Ivpb (Pre-Docked)) 50 mls @ 100 mls/hr IVPB Q8H-IV [facility] PRN Reason: Protocol Last Admin: 02/16/17 10:19 Dose: 100 mls/hr Insulin Aspart (Novolog Vial Sliding Scale -) 1 vial SQ ACHS [facility] PRN Reason: Protocol Last Admin: 02/16/17 11:52 Dose: 2 units Metoprolol Succinate (Toprol Xl -) 25 mg PO DAILY [facility] Last Admin: 02/16/17 10:19 Dose: 25 mg Morphine Sulfate (Morphine Injection -) 4 mg IVPUSH Q3H PRN PRN Reason: PAIN Last Admin: 02/16/17 10:38 Dose: 4 mg Ondansetron HCl (Zofran Injection) 4 mg IVPUSH Q6H PRN PRN Reason: NAUSEA AND/OR VOMITING GENERAL: The patient is awake, alert, and fully oriented, uncomfortable due to pain HEAD: Normal with no signs of trauma. EYES: extraocular movements intact, sclera anicteric, conjunctiva clear. No ptosis. NECK: Trachea midline, full range of motion, supple. LUNGS: Breath sounds equal, clear to auscultation bilaterally, no wheezes, no crackles Cardiac: RRR, (-) murmur, rub or gallop. ABDOMEN: Soft, (+) functioning ostomy, (+) BS, (+) tenderness NEUROLOGICAL: Non-focal SKIN: Warm, dry, surgical wound appears clean Laboratory Results - last 24 hr 02/15/17 02/15/17 02/16/17 16:41 23:00 05:15 WBC 10.1 H RBC 3.12 L Hgb 10.5 L Hct 30.1 L MCV 96.5 H MCH 33.5 MCHC 34.7 RDW 15.1 Plt Count 470 H MPV 8.3 Neutrophils % 79.2 Lymphocytes % 10.0 D Monocytes % 10.1 Eosinophils % 0.4 D Basophils % 0.3 Sodium Potassium Chloride Carbon Dioxide Anion Gap BUN Creatinine Creat Clearance w eGFR POC Glucometer 203.32494 155.85123 Random Glucose Calcium Phosphorus Magnesium Total Bilirubin AST ALT Alkaline Phosphatase Total Protein Albumin 02/16/17 02/16/17 05:15 05:47 WBC RBC Hgb Hct MCV MCH MCHC RDW Plt Count MPV Neutrophils % Lymphocytes % Monocytes % Eosinophils % Basophils % Sodium 141 Potassium 3.5 Chloride 101 Carbon Dioxide 31 Anion Gap 9 BUN 11 Creatinine 0.4 L Creat Clearance w eGFR > 60 POC Glucometer 141.06063 Random Glucose 109 H Calcium 7.5 L Phosphorus 3.0 Magnesium 2.9 H Total Bilirubin 0.7 AST 43 H ALT 21 Alkaline Phosphatase 64 D Total Protein 5.2 L Albumin 1.6 L ASSESSMENT/PLAN: S/P bowel perforation/diverticulitis Diverticulosis HTN DM Problem List - Problems (1) Acute abdomen Code(s): R10.0 - ACUTE ABDOMEN (2) Diabetes mellitus Code(s): E11.9 - TYPE 2 DIABETES MELLITUS WITHOUT COMPLICATIONS (3) Perforation bowel Code(s): K63.1 - PERFORATION OF INTESTINE (NONTRAUMATIC) (4) Sepsis Code(s): A41.9 - SEPSIS, UNSPECIFIED ORGANISM (5) Hypertension Code(s): I10 - ESSENTIAL (PRIMARY) HYPERTENSION PLAN: Needs increased pain control ABX per ID O2 as needed Incentive Spirometry BD TX Glycemic control VTE prophylaxis PO as tolerated - Critical Care Critical Care patient: Yes Total Critical Care Time (in minutes): 35 Critical Care Statement: The care of this patient involved high complexity decision making to prevent further life threatening deterioration of the patient 's condition and/or to evalute & treat vital organ system(s) failure or risk of failure.
--- NOTE | 2017-02-16 16:43 | PATH ---
Surgical Pathology Report Patient Name: SOURAV JOHNSON [facility]. Rec. 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 Specimen(s) Received A: PERITONEUM EXUDATE B: OMENTUM C: SIGMOID RESECTION STITCH RIBEIRO PROXIMAL Clinical History Peritonitis, perforated viscous, intra-abdominal abscess sepsis Final Diagnosis A. PERITONEAL EXUDATE, EVACUATION: FIBRINOPURULENT MATERIAL. B. OMENTUM, PARTIAL EXCISION: BENIGN ADIPOSE TISSUE CONSISTENT WITH OMENTUM, WITH FIBRINOPURULENT EXUDATE. C. COLON, SIGMOID, SEGMENTAL RESECTION: DIVERTICULOSIS WITH PERICOLIC ABSCESS CONTAINING FECAL MATERIAL AND FIBRINOPURULENT SEROSAL EXUDATE, CONSISTENT WITH RESPONSE TO PERFORATION. Electronically Signed Bruno Mondragon M.D. Gross Description A. Received in formalin labeled "peritoneal exudate," is a 1.3 x 0.8 x 0.3 cm espinosa-yellow, irregular portion of soft tissue. The specimen is submitted in toto in one cassette. B. Received in formalin labeled "omentum," is a 20.5 x 12.5 x 1.2 cm aggregate of yellow, lobulated adipose tissue, consistent with omentum. The specimen is focally surface by a espinosa exudate. Sectioning reveals unremarkable fat. Hand Sample Maker sections are submitted in 5 cassettes. C. Received in formalin labeled "sigmoid resection," is a 12 cm in length portion of colon with 2 stapled mucosal margins and moderate attached pericolonic adipose tissue. There is a suture marking the proximal end of the specimen, per the surgeon. The serosa is espinosa-ponce with attached exudate. The mucosa is espinosa with normal folds. No mucosal masses are identified. Sectioning reveals a focal hemorrhagic possible abscess cavity in the pericolonic adipose tissue. There are multiple additional diverticula contain brown fecal material identified. Hand Sample Maker sections are submitted in 14 cassettes as follows: 1-proximal mucosal margin; 2-distal mucosal margin; 6-7-roohaxkw abscess cavity; 6-10-tkrtzeksfh diverticula. /02/15/201702/12/2017
[2017-02-16] MEDS ORDERED: ONDANSETRON 4 MG/2 ML VIAL IVPUSH PRN (16:58)
--- NOTE | 2017-02-16 17:03 | PN ---
Progress Note, Physician History of Present Illness: patient looking much better was out in chair no new issues overall much better - Current Medication List Current Medications: Active Medications Albuterol/Ipratropium (Duoneb -) 1 amp NEB TIDR [facility] Enalapril Maleate (Vasotec -) 20 mg PO DAILY [facility] Heparin Sodium (Porcine) (Heparin -) 5,000 unit SQ TID [facility] Caspofungin 50 mg/ Sodium (Chloride) 250 mls @ 250 mls/hr IVPB DAILY [facility] Pantoprazole Sodium (Protonix 40mg Ivpb (Pre-Docked)) 100 mls @ 200 mls/hr IVPB DAILY [facility] Piperacillin Sod/Tazobactam Sod (Zosyn 3.375gm Ivpb (Pre-Docked)) 50 mls @ 100 mls/hr IVPB Q8H-IV [facility] PRN Reason: Protocol Insulin Aspart (Novolog Vial Sliding Scale -) 1 vial SQ ACHS [facility] PRN Reason: Protocol Metoprolol Succinate (Toprol Xl -) 25 mg PO DAILY [facility] Morphine Sulfate (Morphine Injection -) 4 mg IVPUSH Q3H PRN PRN Reason: PAIN Ondansetron HCl (Zofran Injection) 4 mg IVPUSH Q6H PRN PRN Reason: NAUSEA AND/OR VOMITING - Objective Vital Signs: Vital Signs Temperature 99 F 02/16/17 10:00 Pulse Rate 78 02/16/17 14:00 Respiratory Rate 20 02/16/17 14:00 Blood Pressure 151/78 02/16/17 14:00 O2 Sat by Pulse Oximetry (%) 96 02/16/17 09:00 Constitutional: Yes: No Distress, Calm Cardiovascular: Yes: Regular Rate and Rhythm Respiratory: Yes: Regular, CTA Bilaterally Gastrointestinal: Yes: Normal Bowel Sounds, Soft Musculoskeletal: Yes: WNL Extremities: Yes: WNL Neurological: Yes: Alert, Oriented Psychiatric: Yes: Alert, Oriented Labs: CBC, BMP 02/16/17 05:15 02/16/17 05:15 INR, PTT INR 1.29 (0.82-1.09) H 02/11/17 18:52 Assessment/Plan Problem List - Problems (1) Acute abdomen Code(s): R10.0 - ACUTE ABDOMEN (2) Diabetes mellitus Code(s): E11.9 - TYPE 2 DIABETES MELLITUS WITHOUT COMPLICATIONS (3) Obesity Code(s): E66.9 - OBESITY, UNSPECIFIED Qualifiers: Obesity type: due to excess calories (4) Perforation bowel Code(s): K63.1 - PERFORATION OF INTESTINE (NONTRAUMATIC) (5) Septic shock Code(s): A41.9 - SEPSIS, UNSPECIFIED ORGANISM R65.21 - SEVERE SEPSIS WITH SEPTIC SHOCK all the factors seen plan conitnue current abx patient improving no new issues continue monitoring wound care rest as per primary/icu cc time 40 min
--- NOTE | 2017-02-16 17:10 | PN ---
Physical Exam: SUBJECTIVE: Patient seen and examined. Patient has no new complaints. Ostomy is well perfused and colostomy bag has gas in it. OBJECTIVE: Vital Signs Period Temp Pulse Resp BP Sys/[place] Pulse Ox Last 24 Hr 98 F-99.1 F 62-81 14-22 101-168/67-99 92-99 GENERAL: The patient is awake, alert, and fully oriented, in no acute distress. HEAD: Normal with no signs of trauma. EYES: extraocular movements intact, sclera anicteric, conjunctiva clear. No ptosis. NECK: Trachea midline, full range of motion, supple. LUNGS: Breath sounds equal, clear to auscultation bilaterally, no wheezes, no crackles, no accessory muscle use. HEART: Regular rate and rhythm, S1, S2 without murmur, rub or gallop. ABDOMEN: Soft, nontender, nondistended, normoactive bowel sounds, no guarding, no rebound, no hepatosplenomegaly, no masses. NEUROLOGICAL: Cranial nerves II through X grossly intact. Normal speech, gait not observed. SKIN: Warm, dry, normal turgor, no rashes or lesions noted Laboratory Results - last 24 hr 02/15/17 02/15/17 02/16/17 16:41 23:00 05:15 WBC 10.1 H RBC 3.12 L Hgb 10.5 L Hct 30.1 L MCV 96.5 H MCH 33.5 MCHC 34.7 RDW 15.1 Plt Count 470 H MPV 8.3 Neutrophils % 79.2 Lymphocytes % 10.0 D Monocytes % 10.1 Eosinophils % 0.4 D Basophils % 0.3 Sodium Potassium Chloride Carbon Dioxide Anion Gap BUN Creatinine Creat Clearance w eGFR POC Glucometer 203.92824 155.44551 Random Glucose Calcium Phosphorus Magnesium Total Bilirubin AST ALT Alkaline Phosphatase Total Protein Albumin 02/16/17 02/16/17 02/16/17 05:15 05:47 11:50 WBC RBC Hgb Hct MCV MCH MCHC RDW Plt Count MPV Neutrophils % Lymphocytes % Monocytes % Eosinophils % Basophils % Sodium 141 Potassium 3.5 Chloride 101 Carbon Dioxide 31 Anion Gap 9 BUN 11 Creatinine 0.4 L Creat Clearance w eGFR > 60 POC Glucometer 141.43232 159.05730 Random Glucose 109 H Calcium 7.5 L Phosphorus 3.0 Magnesium 2.9 H Total Bilirubin 0.7 AST 43 H ALT 21 Alkaline Phosphatase 64 D Total Protein 5.2 L Albumin 1.6 L Active Medications Generic Name Dose Route Start Last Admin Trade Name Freq PRN Reason Stop Dose Admin Albuterol/Ipratropium 1 amp 02/14/17 22:00 02/16/17 14:12 Duoneb - NEB 1 amp TIDR [facility] Administration Enalapril Maleate 20 mg 02/15/17 14:45 02/16/17 10:19 Vasotec - PO 20 mg DAILY [facility] Administration Heparin Sodium (Porcine) 5,000 unit 02/14/17 22:00 02/16/17 14:40 Heparin - SQ 5,000 unit TID [facility] Administration Caspofungin 50 mg/ Sodium 250 mls @ 250 mls/hr 02/15/17 10:00 02/16/17 11:41 Chloride IVPB 250 mls/hr DAILY [facility] Administration Pantoprazole Sodium 100 mls @ 200 mls/hr 02/15/17 10:00 02/16/17 10:18 Protonix 40mg Ivpb (Pre-Docked) IVPB 200 mls/hr DAILY [facility] Administration Piperacillin Sod/Tazobactam Sod 50 mls @ 100 mls/hr 02/15/17 10:00 02/16/17 10: 19 Zosyn 3.375gm Ivpb (Pre-Docked) IVPB 100 mls/hr Q8H-IV [facility] Administration Protocol Insulin Aspart 1 vial 02/14/17 16:30 02/16/17 11:52 Novolog Vial Sliding Scale - SQ 2 units ACHS [facility] Administration Protocol Metoprolol Succinate 25 mg 02/15/17 14:45 02/16/17 10:19 Toprol Xl - PO 25 mg DAILY [facility] Administration Morphine Sulfate 4 mg 02/14/17 15:22 02/16/17 14:52 Morphine Injection - IVPUSH 4 mg Q3H PRN Administration PAIN Ondansetron HCl 4 mg 02/14/17 15:22 Zofran Injection IVPUSH Q6H PRN NAUSEA AND/OR VOMITING ASSESSMENT/PLAN: 66 yo F w/ PMH HTN, DMII, diverticulosis s/p colonic resection 2/2 bowel perforation 2/2 diverticulitis Pulmonary -s/p extubation ON 02/14 -saturating well on room air -duonebs PRN Cardio -PMH HTN -BP controlled -c/w vasotec 20 PO daily and lopressor 25 mg PO daily Abdominal -s/p colonic resection 2/2 diverticulitis with perforation -ostomy site appears well perfused -gas in bag -c/w zosyn 3.375g FEN -no indication for fluids at this time -monitor lytes -full liquid diet; advance per surgery PPTX -Heparin SQ for DVT -protonix 40 mg IVPB Dispo -stable to transfer to the floor Problem List - Problems (1) Acute abdomen Code(s): R10.0 - ACUTE ABDOMEN (2) Diabetes mellitus Code(s): E11.9 - TYPE 2 DIABETES MELLITUS WITHOUT COMPLICATIONS (3) Perforation bowel Code(s): K63.1 - PERFORATION OF INTESTINE (NONTRAUMATIC) (4) Sepsis Code(s): A41.9 - SEPSIS, UNSPECIFIED ORGANISM (5) Hypertension Code(s): I10 - ESSENTIAL (PRIMARY) HYPERTENSION Visit type - Emergency Visit Emergency Visit: Yes ED Registration Date: 02/11/17 Care time: The patient presented to the Emergency Department on the above date and was hospitalized for further evaluation of their emergent condition. - New Patient This patient is new to me today: No - Critical Care Critical Care patient: Yes Total Critical Care Time (in minutes): 35 Critical Care Statement: The care of this patient involved high complexity decision making to prevent further life threatening deterioration of the patient 's condition and/or to evalute & treat vital organ system(s) failure or risk of failure.
--- NOTE | 2017-02-17 01:15 | PN ---
Progress Note, Physician History of Present Illness: No new complaints - Current Medication List Current Medications: Active Medications Albuterol/Ipratropium (Duoneb -) 1 amp NEB TIDR [facility] Last Admin: 02/16/17 22:12 Dose: 1 amp Enalapril Maleate (Vasotec -) 20 mg PO DAILY [facility] Heparin Sodium (Porcine) (Heparin -) 5,000 unit SQ TID [facility] Last Admin: 02/16/17 21:07 Dose: 5,000 unit Caspofungin 50 mg/ Sodium (Chloride) 250 mls @ 250 mls/hr IVPB DAILY [facility] Pantoprazole Sodium (Protonix 40mg Ivpb (Pre-Docked)) 100 mls @ 200 mls/hr IVPB DAILY [facility] Piperacillin Sod/Tazobactam Sod (Zosyn 3.375gm Ivpb (Pre-Docked)) 50 mls @ 100 mls/hr IVPB Q8H-IV [facility] PRN Reason: Protocol Last Admin: 02/16/17 17:32 Dose: 100 mls/hr Insulin Aspart (Novolog Vial Sliding Scale -) 1 vial SQ ACHS [facility] PRN Reason: Protocol Last Admin: 02/16/17 21:06 Dose: Not Given Metoprolol Succinate (Toprol Xl -) 25 mg PO DAILY [facility] Morphine Sulfate (Morphine Injection -) 4 mg IVPUSH Q3H PRN PRN Reason: PAIN Last Admin: 02/16/17 22:39 Dose: 4 mg Ondansetron HCl (Zofran Injection) 4 mg IVPUSH Q6H PRN PRN Reason: NAUSEA AND/OR VOMITING - Objective Vital Signs: Vital Signs Temperature 99.5 F 02/16/17 22:00 Pulse Rate 65 02/17/17 00:00 Respiratory Rate 15 02/17/17 00:00 Blood Pressure 160/72 02/17/17 00:00 O2 Sat by Pulse Oximetry (%) 98 02/16/17 21:00 Constitutional: Yes: Well Nourished Neck: Yes: WNL, Supple Cardiovascular: Yes: WNL, Regular Rate and Rhythm Respiratory: Yes: WNL, Regular, CTA Bilaterally Gastrointestinal: Yes: Other ((+) incisional tenderness (+) ileostomy (+) drainage tube) Labs: CBC, BMP 02/16/17 05:15 02/16/17 05:15 INR, PTT INR 1.29 (0.82-1.09) H 02/11/17 18:52 Problem List - Problems (1) Perforation bowel Assessment/Plan: S/P laparotmy w/ sigmoid resection/transverse loop colectomy and lysis of adhesions. Intraabdominal absecesses Cont wound care Cont IV antibxs Advance diet as per surgery Code(s): K63.1 - PERFORATION OF INTESTINE (NONTRAUMATIC) (2) Sepsis Assessment/Plan: Due to bowel perforation/diverticulitis Cont IV antibxs Wound culture (+) for E.Coli/enterococcus/strept viridans Code(s): A41.9 - SEPSIS, UNSPECIFIED ORGANISM (3) Diabetes mellitus Assessment/Plan: Cont sliding scale w/ novolog Code(s): E11.9 - TYPE 2 DIABETES MELLITUS WITHOUT COMPLICATIONS (4) Obesity Code(s): E66.9 - OBESITY, UNSPECIFIED Qualifiers: Obesity type: due to excess calories
[2017-02-17] MEDS: PIPERACILLIN/TAZOB 3.375 GM 50 ML IVPB SCH ×2 (01:19→14:59)
[2017-02-17] MEDS: HEPARIN NA (PORCINE) 5,000 UNITS/ML 1ML VIAL SQ SCH ×3 (05:53→22:00)
[2017-02-17] MEDS: ALBUTEROL SO4 2.5/IPRATROPIUM 0.5 INH SOL 3 ML VIAL.NEB. NEB SCH ×2 (06:28→22:30)
[2017-02-17] MEDS: INSULIN SLIDING SCALE (NOVOLOG) 1 VIAL SQ SCH ×4 (06:49→22:02)
[2017-02-17] MEDS: morphine CARPU-JECT 4 MG/1 ML DISP.SYRIN IVPUSH PRN ×4 (06:56→22:07)
[2017-02-17 06:58] LABS: BASOPHIL 0.1 % (0-2.0); EOSINOPHIL 0.4 % (0-4.5); MCH 32.2 pg (25.7-33.7); MCHC 33.5 g/dl (32.0-36.0); MEAN PLT VOLUME 8.3 fl (7.5-11.1); NEUTROPHILS 83.3 % (42.8-82.8); PLATELET COUNT 489 K/MM3 (134-434); RDW 15.4 % (11.6-15.6); WHITE BLOOD COUNT 11.8 K/mm3 (4.0-10.0)
[2017-02-17 07:20] LABS: ANION GAP 10 (8-16); CALCIUM 7.7 mg/dL (8.5-10.1); CO2 32 mmol/L (21-32); CREATININE 0.5 mg/dL (0.55-1.02); GLUCOSE,RANDOM 114 mg/dL (74-106)
[2017-02-17] MEDS ORDERED: PANTOPRAZOLE SODIUM 100 ML IVPB SCH (10:00)
[2017-02-17] MEDS: ENALAPRIL MALEATE 10 MG TABLET (FP) PO SCH (10:09)
[2017-02-17] MEDS: METOPROLOL SUCCINATE 25 MG TAB.SR.24H (FP) PO SCH (10:10)
[2017-02-17] MEDS ORDERED: PIPERACILLIN/TAZOBACTAM 3.375 GM VIAL IVPB ONE ×2 (11:07→17:23)
[2017-02-17] MEDS ORDERED: DEXTROSE 5%-WATER - 50 ML IVPB ONE ×2 (11:07→17:23)
[2017-02-17] MEDS ORDERED: SODIUM CHLORIDE 100 ML IVPB ONE (11:19)
[2017-02-17] MEDS ORDERED: PANTOPRAZOLE SODIUM 40 MG VIAL ONE (11:19)
[2017-02-17] MEDS: PANTOPRAZOLE SODIUM 40 MG in SODIUM CHLORIDE 100 ML IVPB SCH (11:32)
[2017-02-17] MEDS: PIPERACILLIN/TAZOB 3.375 GM 3.375 GM in DEXTROSE 5%-WATER - 50 ML IVPB SCH ×2 (11:32→17:28)
[2017-02-17] MEDS: CASPOFUNGIN ACETATE 50 MG in SODIUM CHLORIDE 250 ML IVPB SCH (13:18)
--- NOTE | 2017-02-17 13:51 | PN ---
Progress Note, Physician History of Present Illness: patient continues to improve no new issues patient tolerating food now - Current Medication List Current Medications: Active Medications Albuterol/Ipratropium (Duoneb -) 1 amp NEB TIDR [facility] Last Admin: 02/17/17 06:28 Dose: 1 amp Enalapril Maleate (Vasotec -) 20 mg PO DAILY [facility] Last Admin: 02/17/17 10:09 Dose: 20 mg Heparin Sodium (Porcine) (Heparin -) 5,000 unit SQ TID [facility] Last Admin: 02/17/17 05:53 Dose: 5,000 unit Caspofungin 50 mg/ Sodium (Chloride) 250 mls @ 250 mls/hr IVPB DAILY [facility] Last Admin: 02/17/17 13:18 Dose: 250 mls/hr Piperacillin Sod/Tazobactam (Sod 3.375 gm/ Dextrose) 50 mls @ 100 mls/hr IVPB Q8H-IV [facility] PRN Reason: Protocol Last Admin: 02/17/17 11:32 Dose: 100 mls/hr Pantoprazole Sodium 40 mg/ (Sodium Chloride) 100 mls @ 200 mls/hr IVPB DAILY [facility] Last Admin: 02/17/17 11:32 Dose: 200 mls/hr Insulin Aspart (Novolog Vial Sliding Scale -) 1 vial SQ ACHS [facility] PRN Reason: Protocol Last Admin: 02/17/17 12:40 Dose: Not Given Metoprolol Succinate (Toprol Xl -) 25 mg PO DAILY [facility] Last Admin: 02/17/17 10:10 Dose: 25 mg Morphine Sulfate (Morphine Injection -) 4 mg IVPUSH Q3H PRN PRN Reason: PAIN Last Admin: 02/17/17 10:10 Dose: 4 mg Ondansetron HCl (Zofran Injection) 4 mg IVPUSH Q6H PRN PRN Reason: NAUSEA AND/OR VOMITING - Objective Vital Signs: Vital Signs Temperature 99.2 F 02/17/17 06:00 Pulse Rate 66 02/17/17 06:00 Respiratory Rate 20 02/17/17 06:00 Blood Pressure 161/85 02/17/17 06:00 O2 Sat by Pulse Oximetry (%) 98 02/16/17 21:00 Constitutional: Yes: No Distress, Calm Cardiovascular: Yes: Regular Rate and Rhythm Respiratory: Yes: Regular, CTA Bilaterally, On Nasal O2 Gastrointestinal: Yes: Normal Bowel Sounds, Soft Musculoskeletal: Yes: WNL Extremities: Yes: WNL Wound/Incision: Yes: Clean/Dry, Other (ilestomy in place) Neurological: Yes: Alert, Oriented Labs: CBC, BMP 02/17/17 05:20 02/17/17 05:20 INR, PTT INR 1.29 (0.82-1.09) H 02/11/17 18:52 Assessment/Plan Problem List - Problems (1) Acute abdomen Code(s): R10.0 - ACUTE ABDOMEN (2) Diabetes mellitus Code(s): E11.9 - TYPE 2 DIABETES MELLITUS WITHOUT COMPLICATIONS (3) Obesity Code(s): E66.9 - OBESITY, UNSPECIFIED Qualifiers: Obesity type: due to excess calories (4) Perforation bowel Code(s): K63.1 - PERFORATION OF INTESTINE (NONTRAUMATIC) (5) Septic shock Code(s): A41.9 - SEPSIS, UNSPECIFIED ORGANISM R65.21 - SEVERE SEPSIS WITH SEPTIC SHOCK all the factors seen plan conitnue current abx will switch to oral abx tomorrow rest ct as per surgery wbc slightly higher will see what wbc shows tomorrow
[2017-02-17] MEDS ORDERED: POTASSIUM CHLORIDE TABS 20 MEQ TABLET.ER (FP) PO ONE (22:50)
--- NOTE | 2017-02-17 22:52 | PN ---
Progress Note, Physician - Current Medication List Current Medications: Active Medications Albuterol/Ipratropium (Duoneb -) 1 amp NEB TIDR [facility] Last Admin: 02/17/17 22:30 Dose: 1 amp Enalapril Maleate (Vasotec -) 20 mg PO DAILY [facility] Last Admin: 02/17/17 10:09 Dose: 20 mg Heparin Sodium (Porcine) (Heparin -) 5,000 unit SQ TID [facility] Last Admin: 02/17/17 22:00 Dose: 5,000 unit Caspofungin 50 mg/ Sodium (Chloride) 250 mls @ 250 mls/hr IVPB DAILY [facility] Last Admin: 02/17/17 13:18 Dose: 250 mls/hr Piperacillin Sod/Tazobactam (Sod 3.375 gm/ Dextrose) 50 mls @ 100 mls/hr IVPB Q8H-IV [facility] PRN Reason: Protocol Last Admin: 02/17/17 17:28 Dose: 100 mls/hr Pantoprazole Sodium 40 mg/ (Sodium Chloride) 100 mls @ 200 mls/hr IVPB DAILY [facility] Last Admin: 02/17/17 11:32 Dose: 200 mls/hr Insulin Aspart (Novolog Vial Sliding Scale -) 1 vial SQ ACHS [facility] PRN Reason: Protocol Last Admin: 02/17/17 22:02 Dose: Not Given Metoprolol Succinate (Toprol Xl -) 25 mg PO DAILY [facility] Last Admin: 02/17/17 10:10 Dose: 25 mg Morphine Sulfate (Morphine Injection -) 4 mg IVPUSH Q3H PRN PRN Reason: PAIN Last Admin: 02/17/17 22:07 Dose: 4 mg Ondansetron HCl (Zofran Injection) 4 mg IVPUSH Q6H PRN PRN Reason: NAUSEA AND/OR VOMITING Potassium Chloride (K-Dur -) 40 meq PO ONCE ONE Stop: 02/17/17 22:51 - Objective Vital Signs: Vital Signs Temperature 99.1 F 02/17/17 16:59 Pulse Rate 75 02/17/17 16:59 Respiratory Rate 18 02/17/17 16:59 Blood Pressure 137/72 02/17/17 16:59 O2 Sat by Pulse Oximetry (%) 96 02/17/17 09:00 Constitutional: Yes: Well Nourished Neck: Yes: WNL, Supple Cardiovascular: Yes: WNL, Regular Rate and Rhythm Respiratory: Yes: WNL, Regular, CTA Bilaterally Gastrointestinal: Yes: Normal Bowel Sounds, Soft, Other ((+) incisional tenderness (+) ileostomy) Labs: CBC, BMP 02/17/17 05:20 02/17/17 05:20 INR, PTT INR 1.29 (0.82-1.09) H 02/11/17 18:52 Problem List - Problems (1) Perforation bowel Assessment/Plan: S/P exp lap for perforation and intra-abdominal abscess S/P ileostomy Cont wound care Cont IV antibxs Pt tolerating full liquid diet Advance diet as per surgery Code(s): K63.1 - PERFORATION OF INTESTINE (NONTRAUMATIC) (2) Sepsis Assessment/Plan: Intra-abdominal abscess Increased WBC ?Pneumonia Cont IV zosyn Check labs in am Code(s): A41.9 - SEPSIS, UNSPECIFIED ORGANISM (3) Hypertension Assessment/Plan: BP stable Cont metoprolol/vasotec Code(s): I10 - ESSENTIAL (PRIMARY) HYPERTENSION (4) Diabetes mellitus Assessment/Plan: Cont sliding scale w/ novolog Code(s): E11.9 - TYPE 2 DIABETES MELLITUS WITHOUT COMPLICATIONS (5) Obesity Code(s): E66.9 - OBESITY, UNSPECIFIED Qualifiers: Obesity type: due to excess calories
[2017-02-18] MEDS ORDERED: DEXTROSE 5%-WATER - 50 ML IVPB ONE ×3 (01:33→17:19)
[2017-02-18] MEDS ORDERED: PIPERACILLIN/TAZOBACTAM 3.375 GM VIAL IVPB ONE ×3 (01:33→17:19)
[2017-02-18] MEDS: PIPERACILLIN/TAZOB 3.375 GM 3.375 GM in DEXTROSE 5%-WATER - 50 ML IVPB SCH ×3 (01:48→17:34)
[2017-02-18] MEDS: HEPARIN NA (PORCINE) 5,000 UNITS/ML 1ML VIAL SQ SCH ×3 (06:03→21:13)
[2017-02-18] MEDS: INSULIN SLIDING SCALE (NOVOLOG) 1 VIAL SQ SCH ×4 (06:18→21:28)
[2017-02-18] MEDS: ALBUTEROL SO4 2.5/IPRATROPIUM 0.5 INH SOL 3 ML VIAL.NEB. NEB SCH ×3 (06:55→22:15)
[2017-02-18] MEDS: morphine CARPU-JECT 4 MG/1 ML DISP.SYRIN IVPUSH PRN ×3 (07:22→20:05)
[2017-02-18 07:53] LABS: BASOPHIL 0.5 % (0-2.0); EOSINOPHIL 0.5 % (0-4.5); MCH 32.7 pg (25.7-33.7); MCHC 33.9 g/dl (32.0-36.0); MEAN CELL VOLUME 96.5 fl (80-96); MEAN PLT VOLUME 8.3 fl (7.5-11.1); NEUTROPHILS 79.6 % (42.8-82.8); PLATELET COUNT 502 K/MM3 (134-434); WHITE BLOOD COUNT 14.3 K/mm3 (4.0-10.0)
[2017-02-18 08:38] LABS: ALBUMIN 1.8 g/dl (3.4-5.0); ALK PHOS 71 U/L (45-117); ANION GAP 8 (8-16); BILIRUBIN,TOTAL 0.6 mg/dL (0.2-1.0); CALCIUM 8.1 mg/dL (8.5-10.1); CO2 31 mmol/L (21-32); CREATININE 0.5 mg/dL (0.55-1.02); GLUCOSE,RANDOM 84 mg/dL (74-106); SGOT/AST 33 U/L (15-37); SGPT/ALT 19 U/L (12-78); TOT PROT 5.6 g/dl (6.4-8.2)
--- NOTE | 2017-02-18 09:25 | PN ---
Progress Note, Physician History of Present Illness: S/P sigmoid resection , drainage of multiple intraabdominal [place]es[place] [address], Wound is clean. Colostomy is functioning, pinl. No calf tenderness. Plan: CT scan of abdomen , to rule out intraabdominal collection. Continue antibiotics. Wound vac to wound. Out of bed ambulating. - Current Medication List Current Medications: Active Medications Albuterol/Ipratropium (Duoneb -) 1 amp NEB TIDR [facility] Last Admin: 02/18/17 06:55 Dose: 1 amp Enalapril Maleate (Vasotec -) 20 mg PO DAILY [facility] Last Admin: 02/17/17 10:09 Dose: 20 mg Heparin Sodium (Porcine) (Heparin -) 5,000 unit SQ TID [facility] Last Admin: 02/18/17 06:03 Dose: 5,000 unit Caspofungin 50 mg/ Sodium (Chloride) 250 mls @ 250 mls/hr IVPB DAILY [facility] Last Admin: 02/17/17 13:18 Dose: 250 mls/hr Piperacillin Sod/Tazobactam (Sod 3.375 gm/ Dextrose) 50 mls @ 100 mls/hr IVPB Q8H-IV [facility] PRN Reason: Protocol Last Admin: 02/18/17 01:48 Dose: 100 mls/hr Pantoprazole Sodium 40 mg/ (Sodium Chloride) 100 mls @ 200 mls/hr IVPB DAILY [facility] Last Admin: 02/17/17 11:32 Dose: 200 mls/hr Insulin Aspart (Novolog Vial Sliding Scale -) 1 vial SQ ACHS [facility] PRN Reason: Protocol Last Admin: 02/18/17 06:18 Dose: Not Given Metoprolol Succinate (Toprol Xl -) 25 mg PO DAILY [facility] Last Admin: 02/17/17 10:10 Dose: 25 mg Morphine Sulfate (Morphine Injection -) 4 mg IVPUSH Q3H PRN PRN Reason: PAIN Last Admin: 02/18/17 07:22 Dose: 4 mg Ondansetron HCl (Zofran Injection) 4 mg IVPUSH Q6H PRN PRN Reason: NAUSEA AND/OR VOMITING - Objective Vital Signs: Vital Signs Temperature 98.9 F 02/18/17 06:29 Pulse Rate 75 02/18/17 06:29 Respiratory Rate 20 02/18/17 06:29 Blood Pressure 162/92 02/18/17 06:29 O2 Sat by Pulse Oximetry (%) 96 02/17/17 21:00 Labs: CBC, BMP 02/18/17 06:00 02/18/17 06:00 INR, PTT INR 1.29 (0.82-1.09) H 02/11/17 18:52 Problem List - Problems (1) Perforation bowel Code(s): K63.1 - PERFORATION OF INTESTINE (NONTRAUMATIC) (2) Acute abdomen Code(s): R10.0 - ACUTE ABDOMEN (3) Obesity Code(s): E66.9 - OBESITY, UNSPECIFIED Qualifiers: (4) Diabetes mellitus Code(s): E11.9 - TYPE 2 DIABETES MELLITUS WITHOUT COMPLICATIONS
[2017-02-18] MEDS ORDERED: PT OWN MED DRAWER 7, Y5N ONE (09:37)
[2017-02-18] MEDS ORDERED: PANTOPRAZOLE SODIUM 40 MG VIAL ONE (09:37)
[2017-02-18] MEDS ORDERED: SODIUM CHLORIDE 100 ML IVPB ONE (09:38)
[2017-02-18] MEDS: ENALAPRIL MALEATE 10 MG TABLET (FP) PO SCH (09:48)
[2017-02-18] MEDS: METOPROLOL SUCCINATE 25 MG TAB.SR.24H (FP) PO SCH (09:48)
[2017-02-18] MEDS: CASPOFUNGIN ACETATE 50 MG in SODIUM CHLORIDE 250 ML IVPB SCH (09:49)
[2017-02-18] MEDS: PANTOPRAZOLE SODIUM 40 MG in SODIUM CHLORIDE 100 ML IVPB SCH (09:49)
--- NOTE | 2017-02-18 12:10 | PN ---
Progress Note, Physician History of Present Illness: clinically patient has no complaints except mild distension wbc has increased - Current Medication List Current Medications: Active Medications Albuterol/Ipratropium (Duoneb -) 1 amp NEB TIDR [facility] Last Admin: 02/18/17 06:55 Dose: 1 amp Enalapril Maleate (Vasotec -) 20 mg PO DAILY [facility] Last Admin: 02/18/17 09:48 Dose: 20 mg Heparin Sodium (Porcine) (Heparin -) 5,000 unit SQ TID [facility] Last Admin: 02/18/17 06:03 Dose: 5,000 unit Piperacillin Sod/Tazobactam (Sod 3.375 gm/ Dextrose) 50 mls @ 100 mls/hr IVPB Q8H-IV [facility] PRN Reason: Protocol Last Admin: 02/18/17 09:48 Dose: 100 mls/hr Pantoprazole Sodium 40 mg/ (Sodium Chloride) 100 mls @ 200 mls/hr IVPB DAILY [facility] Last Admin: 02/18/17 09:49 Dose: 200 mls/hr Insulin Aspart (Novolog Vial Sliding Scale -) 1 vial SQ ACHS [facility] PRN Reason: Protocol Last Admin: 02/18/17 06:18 Dose: Not Given Metoprolol Succinate (Toprol Xl -) 25 mg PO DAILY [facility] Last Admin: 02/18/17 09:48 Dose: 25 mg Morphine Sulfate (Morphine Injection -) 4 mg IVPUSH Q3H PRN PRN Reason: PAIN Last Admin: 02/18/17 07:22 Dose: 4 mg Ondansetron HCl (Zofran Injection) 4 mg IVPUSH Q6H PRN PRN Reason: NAUSEA AND/OR VOMITING - Objective Vital Signs: Vital Signs Temperature 98.9 F 02/18/17 06:29 Pulse Rate 75 02/18/17 06:29 Respiratory Rate 20 02/18/17 06:29 Blood Pressure 162/92 02/18/17 06:29 O2 Sat by Pulse Oximetry (%) 96 02/17/17 21:00 Constitutional: Yes: Calm, Mild Distress Cardiovascular: Yes: Regular Rate and Rhythm Respiratory: Yes: Poor Air Entry Gastrointestinal: Yes: Soft, Distention, Hypoactive Bowel Sounds, Other (stoma looks good) Musculoskeletal: Yes: WNL Extremities: Yes: WNL Integumentary: Yes: WNL Wound/Incision: Yes: Clean/Dry, Other Neurological: Yes: Alert, Oriented Psychiatric: Yes: Alert, Oriented Labs: CBC, BMP 02/18/17 06:00 02/18/17 06:00 INR, PTT INR 1.29 (0.82-1.09) H 02/11/17 18:52 Assessment/Plan Problem List - Problems (1) Acute abdomen Code(s): R10.0 - ACUTE ABDOMEN (2) Diabetes mellitus Code(s): E11.9 - TYPE 2 DIABETES MELLITUS WITHOUT COMPLICATIONS (3) Obesity Code(s): E66.9 - OBESITY, UNSPECIFIED Qualifiers: Obesity type: due to excess calories (4) Perforation bowel Code(s): K63.1 - PERFORATION OF INTESTINE (NONTRAUMATIC) (5) Septic shock Code(s): A41.9 - SEPSIS, UNSPECIFIED ORGANISM R65.21 - SEVERE SEPSIS WITH SEPTIC SHOCK all the factors seen plan will continue iv abx patients wbc has increased ct scan to be done will stop caspfungin and watch if wbc starts increasing will restart it patient tolerated liquids await for gi function to return
--- NOTE | 2017-02-18 23:44 | PN ---
Progress Note, Physician - Current Medication List Current Medications: Active Medications Albuterol/Ipratropium (Duoneb -) 1 amp NEB TIDR [facility] Last Admin: 02/18/17 22:15 Dose: 1 amp Enalapril Maleate (Vasotec -) 20 mg PO DAILY [facility] Last Admin: 02/18/17 09:48 Dose: 20 mg Heparin Sodium (Porcine) (Heparin -) 5,000 unit SQ TID [facility] Last Admin: 02/18/17 21:13 Dose: 5,000 unit Piperacillin Sod/Tazobactam (Sod 3.375 gm/ Dextrose) 50 mls @ 100 mls/hr IVPB Q8H-IV [facility] PRN Reason: Protocol Last Admin: 02/18/17 17:34 Dose: 100 mls/hr Pantoprazole Sodium 40 mg/ (Sodium Chloride) 100 mls @ 200 mls/hr IVPB DAILY [facility] Last Admin: 02/18/17 09:49 Dose: 200 mls/hr Insulin Aspart (Novolog Vial Sliding Scale -) 1 vial SQ ACHS [facility] PRN Reason: Protocol Last Admin: 02/18/17 21:28 Dose: Not Given Metoprolol Succinate (Toprol Xl -) 25 mg PO DAILY [facility] Last Admin: 02/18/17 09:48 Dose: 25 mg Morphine Sulfate (Morphine Injection -) 4 mg IVPUSH Q3H PRN PRN Reason: PAIN Last Admin: 02/18/17 20:05 Dose: 4 mg Ondansetron HCl (Zofran Injection) 4 mg IVPUSH Q6H PRN PRN Reason: NAUSEA AND/OR VOMITING - Objective Vital Signs: Vital Signs Temperature 99.4 F 02/18/17 18:00 Pulse Rate 77 02/18/17 18:00 Respiratory Rate 18 02/18/17 18:00 Blood Pressure 155/67 02/18/17 18:00 O2 Sat by Pulse Oximetry (%) 95 02/18/17 15:02 Constitutional: Yes: Well Nourished Neck: Yes: WNL, Supple Cardiovascular: Yes: WNL, Regular Rate and Rhythm Respiratory: Yes: WNL, Regular, CTA Bilaterally Gastrointestinal: Yes: Soft, Other ((+) incisional tenderness (+) ileostomy (+) wound vac w/ drainage) Labs: CBC, BMP 02/18/17 06:00 02/18/17 06:00 INR, PTT INR 1.29 (0.82-1.09) H 02/11/17 18:52 Problem List - Problems (1) Perforation bowel Code(s): K63.1 - PERFORATION OF INTESTINE (NONTRAUMATIC) (2) Sepsis Code(s): A41.9 - SEPSIS, UNSPECIFIED ORGANISM (3) Hypertension Code(s): I10 - ESSENTIAL (PRIMARY) HYPERTENSION (4) Diabetes mellitus Code(s): E11.9 - TYPE 2 DIABETES MELLITUS WITHOUT COMPLICATIONS (5) Obesity Code(s): E66.9 - OBESITY, UNSPECIFIED Qualifiers: Obesity type: due to excess calories
[2017-02-19] MEDS ORDERED: PIPERACILLIN/TAZOBACTAM 3.375 GM VIAL IVPB ONE ×3 (00:27→17:31)
[2017-02-19] MEDS ORDERED: DEXTROSE 5%-WATER - 50 ML IVPB ONE ×3 (00:27→17:32)
[2017-02-19] MEDS: morphine CARPU-JECT 4 MG/1 ML DISP.SYRIN IVPUSH PRN ×3 (00:30→20:04)
[2017-02-19] MEDS: PIPERACILLIN/TAZOB 3.375 GM 3.375 GM in DEXTROSE 5%-WATER - 50 ML IVPB SCH ×3 (02:20→17:55)
[2017-02-19] MEDS: HEPARIN NA (PORCINE) 5,000 UNITS/ML 1ML VIAL SQ SCH ×3 (05:54→21:30)
[2017-02-19] MEDS: INSULIN SLIDING SCALE (NOVOLOG) 1 VIAL SQ SCH ×4 (06:12→21:38)
[2017-02-19] MEDS: ALBUTEROL SO4 2.5/IPRATROPIUM 0.5 INH SOL 3 ML VIAL.NEB. NEB SCH ×3 (06:39→23:18)
--- NOTE | 2017-02-19 09:20 | PN ---
Progress Note, Physician - Current Medication List Current Medications: Active Medications Albuterol/Ipratropium (Duoneb -) 1 amp NEB TIDR [facility] Last Admin: 02/19/17 06:39 Dose: 1 amp Enalapril Maleate (Vasotec -) 20 mg PO DAILY [facility] Last Admin: 02/18/17 09:48 Dose: 20 mg Heparin Sodium (Porcine) (Heparin -) 5,000 unit SQ TID [facility] Last Admin: 02/19/17 05:54 Dose: 5,000 unit Piperacillin Sod/Tazobactam (Sod 3.375 gm/ Dextrose) 50 mls @ 100 mls/hr IVPB Q8H-IV [facility] PRN Reason: Protocol Last Admin: 02/19/17 02:20 Dose: 100 mls/hr Pantoprazole Sodium 40 mg/ (Sodium Chloride) 100 mls @ 200 mls/hr IVPB DAILY [facility] Last Admin: 02/18/17 09:49 Dose: 200 mls/hr Insulin Aspart (Novolog Vial Sliding Scale -) 1 vial SQ ACHS [facility] PRN Reason: Protocol Last Admin: 02/19/17 06:12 Dose: Not Given Metoprolol Succinate (Toprol Xl -) 25 mg PO DAILY [facility] Last Admin: 02/18/17 09:48 Dose: 25 mg Morphine Sulfate (Morphine Injection -) 4 mg IVPUSH Q3H PRN PRN Reason: PAIN Last Admin: 02/19/17 00:30 Dose: 4 mg Ondansetron HCl (Zofran Injection) 4 mg IVPUSH Q6H PRN PRN Reason: NAUSEA AND/OR VOMITING - Objective Vital Signs: Vital Signs Temperature 99.2 F 02/18/17 22:00 Pulse Rate 67 02/18/17 22:00 Respiratory Rate 18 02/18/17 22:00 Blood Pressure 147/69 02/18/17 22:00 O2 Sat by Pulse Oximetry (%) 97 02/18/17 21:00 Labs: CBC, BMP 02/18/17 06:00 02/18/17 06:00 INR, PTT INR 1.29 (0.82-1.09) H 02/11/17 18:52 Problem List - Problems (1) Perforation bowel Code(s): K63.1 - PERFORATION OF INTESTINE (NONTRAUMATIC) (2) Acute abdomen Code(s): R10.0 - ACUTE ABDOMEN (3) Obesity Code(s): E66.9 - OBESITY, UNSPECIFIED Qualifiers: (4) Diabetes mellitus Code(s): E11.9 - TYPE 2 DIABETES MELLITUS WITHOUT COMPLICATIONS Assessment/Plan Surgery: patient is afebrile. Wound vac applied. Abdomen is soft , patient is out of bed in chair , [place] [address] scan shows two collection within the abdomewn , one in the left upper vquadrant and another in the pelvis. The one in the left upper quadrant is larger. Patient does not appear to septic. Continue antibiotics. Will need drainage of collections. Patient is informed. Will consult radiology for aspiration and drainage.
[2017-02-19] MEDS ORDERED: SODIUM CHLORIDE 100 ML IVPB ONE (09:29)
[2017-02-19] MEDS ORDERED: PANTOPRAZOLE SODIUM 40 MG VIAL ONE (09:29)
[2017-02-19] MEDS: METOPROLOL SUCCINATE 25 MG TAB.SR.24H (FP) PO SCH (10:07)
[2017-02-19] MEDS: ENALAPRIL MALEATE 10 MG TABLET (FP) PO SCH (10:07)
[2017-02-19] MEDS: PANTOPRAZOLE SODIUM 40 MG in SODIUM CHLORIDE 100 ML IVPB SCH (10:07)
--- NOTE | 2017-02-19 13:31 | PN ---
Progress Note, Physician History of Present Illness: patient stable plan for drainage of the collections ir draining the collections - Current Medication List Current Medications: Active Medications Albuterol/Ipratropium (Duoneb -) 1 amp NEB TIDR [facility] Last Admin: 02/19/17 06:39 Dose: 1 amp Enalapril Maleate (Vasotec -) 20 mg PO DAILY [facility] Last Admin: 02/19/17 10:07 Dose: 20 mg Heparin Sodium (Porcine) (Heparin -) 5,000 unit SQ TID [facility] Last Admin: 02/19/17 05:54 Dose: 5,000 unit Piperacillin Sod/Tazobactam (Sod 3.375 gm/ Dextrose) 50 mls @ 100 mls/hr IVPB Q8H-IV [facility] PRN Reason: Protocol Last Admin: 02/19/17 09:07 Dose: 100 mls/hr Pantoprazole Sodium 40 mg/ (Sodium Chloride) 100 mls @ 200 mls/hr IVPB DAILY [facility] Last Admin: 02/19/17 10:07 Dose: 200 mls/hr Insulin Aspart (Novolog Vial Sliding Scale -) 1 vial SQ ACHS [facility] PRN Reason: Protocol Last Admin: 02/19/17 06:12 Dose: Not Given Metoprolol Succinate (Toprol Xl -) 25 mg PO DAILY [facility] Last Admin: 02/19/17 10:07 Dose: 25 mg Morphine Sulfate (Morphine Injection -) 4 mg IVPUSH Q3H PRN PRN Reason: PAIN Last Admin: 02/19/17 10:29 Dose: 4 mg Ondansetron HCl (Zofran Injection) 4 mg IVPUSH Q6H PRN PRN Reason: NAUSEA AND/OR VOMITING - Objective Vital Signs: Vital Signs Temperature 99.2 F 02/18/17 22:00 Pulse Rate 69 02/19/17 10:00 Respiratory Rate 18 02/18/17 22:00 Blood Pressure 147/69 02/18/17 22:00 O2 Sat by Pulse Oximetry (%) 96 02/19/17 10:00 Constitutional: Yes: No Distress, Calm, Obese Cardiovascular: Yes: Regular Rate and Rhythm Respiratory: Yes: Regular, CTA Bilaterally Musculoskeletal: Yes: WNL Extremities: Yes: WNL Neurological: Yes: Alert, Oriented Psychiatric: Yes: Alert, Oriented Labs: CBC, BMP 02/18/17 06:00 02/18/17 06:00 INR, PTT INR 1.29 (0.82-1.09) H 02/11/17 18:52 Assessment/Plan Problem List - Problems (1) Acute abdomen Code(s): R10.0 - ACUTE ABDOMEN (2) Diabetes mellitus Code(s): E11.9 - TYPE 2 DIABETES MELLITUS WITHOUT COMPLICATIONS (3) Obesity Code(s): E66.9 - OBESITY, UNSPECIFIED Qualifiers: Obesity type: due to excess calories (4) Perforation bowel Code(s): K63.1 - PERFORATION OF INTESTINE (NONTRAUMATIC) (5) Septic shock Code(s): A41.9 - SEPSIS, UNSPECIFIED ORGANISM R65.21 - SEVERE SEPSIS WITH SEPTIC SHOCK all the factors seen plan continue iv abx await for cx reports of the drainage after done rest continue as per surgery close watch
[2017-02-19] MEDS ORDERED: SODIUM CHLORIDE 500 ML IV ONE (14:30)
[2017-02-19] MEDS ORDERED: MIDAZOLAM HCL 2 MG/2 ML SINGLE DOSE VIAL IVPUSH ONE (14:30)
--- NOTE | 2017-02-19 23:04 | PN ---
Progress Note, Physician - Current Medication List Current Medications: Active Medications Albuterol/Ipratropium (Duoneb -) 1 amp NEB TIDR [facility] Last Admin: 02/19/17 13:48 Dose: Not Given Enalapril Maleate (Vasotec -) 20 mg PO DAILY [facility] Last Admin: 02/19/17 10:07 Dose: 20 mg Heparin Sodium (Porcine) (Heparin -) 5,000 unit SQ TID [facility] Last Admin: 02/19/17 21:30 Dose: 5,000 unit Piperacillin Sod/Tazobactam (Sod 3.375 gm/ Dextrose) 50 mls @ 100 mls/hr IVPB Q8H-IV [facility] PRN Reason: Protocol Last Admin: 02/19/17 17:55 Dose: 100 mls/hr Pantoprazole Sodium 40 mg/ (Sodium Chloride) 100 mls @ 200 mls/hr IVPB DAILY [facility] Last Admin: 02/19/17 10:07 Dose: 200 mls/hr Sodium Chloride (Normal Saline -) 500 mls @ 21 mls/hr IV ONCE ONE Stop: 02/20/17 14:18 Last Admin: 02/19/17 15:16 Dose: Not Given Insulin Aspart (Novolog Vial Sliding Scale -) 1 vial SQ ACHS [facility] PRN Reason: Protocol Last Admin: 02/19/17 21:38 Dose: Not Given Metoprolol Succinate (Toprol Xl -) 25 mg PO DAILY [facility] Last Admin: 02/19/17 10:07 Dose: 25 mg Morphine Sulfate (Morphine Injection -) 2 mg IVPUSH Q4H PRN Last Admin: 02/19/17 20:04 Dose: 2 mg Ondansetron HCl (Zofran Injection) 4 mg IVPUSH Q6H PRN PRN Reason: NAUSEA AND/OR VOMITING - Objective Vital Signs: Vital Signs Temperature 97.9 F 02/19/17 22:00 Pulse Rate 67 02/19/17 22:00 Respiratory Rate 18 02/19/17 22:00 Blood Pressure 152/73 02/19/17 22:00 O2 Sat by Pulse Oximetry (%) 97 02/19/17 21:00 Constitutional: Yes: Well Nourished Neck: Yes: WNL, Supple Cardiovascular: Yes: WNL, Regular Rate and Rhythm Respiratory: Yes: WNL, Regular, CTA Bilaterally Gastrointestinal: Yes: Soft, Other ((+) ileostomy (+) drainage tube w/ wound vac ) Labs: CBC, BMP 02/18/17 06:00 02/18/17 06:00 INR, PTT INR 1.29 (0.82-1.09) H 02/11/17 18:52 Problem List - Problems (1) Perforation bowel Code(s): K63.1 - PERFORATION OF INTESTINE (NONTRAUMATIC) (2) Sepsis Code(s): A41.9 - SEPSIS, UNSPECIFIED ORGANISM (3) Hypertension Code(s): I10 - ESSENTIAL (PRIMARY) HYPERTENSION (4) Diabetes mellitus Code(s): E11.9 - TYPE 2 DIABETES MELLITUS WITHOUT COMPLICATIONS (5) Obesity Code(s): E66.9 - OBESITY, UNSPECIFIED Qualifiers: Obesity type: due to excess calories
[2017-02-20] MEDS ORDERED: PIPERACILLIN/TAZOBACTAM 3.375 GM VIAL IVPB ONE ×4 (00:19→20:39)
[2017-02-20] MEDS ORDERED: DEXTROSE 5%-WATER - 50 ML IVPB ONE ×4 (00:19→20:39)
[2017-02-20] MEDS: morphine CARPU-JECT 4 MG/1 ML DISP.SYRIN IVPUSH PRN ×2 (01:26→18:14)
[2017-02-20] MEDS: PIPERACILLIN/TAZOB 3.375 GM 3.375 GM in DEXTROSE 5%-WATER - 50 ML IVPB SCH ×3 (02:25→17:56)
[2017-02-20] MEDS: HEPARIN NA (PORCINE) 5,000 UNITS/ML 1ML VIAL SQ SCH ×3 (05:59→21:11)
[2017-02-20] MEDS: INSULIN SLIDING SCALE (NOVOLOG) 1 VIAL SQ SCH ×3 (06:02→17:03)
[2017-02-20] MEDS: ALBUTEROL SO4 2.5/IPRATROPIUM 0.5 INH SOL 3 ML VIAL.NEB. NEB SCH ×2 (06:55→14:11)
[2017-02-20 08:03] LABS: ALBUMIN 1.9 g/dl (3.4-5.0); ALK PHOS 69 U/L (45-117); ANION GAP 7 (8-16); BILIRUBIN,TOTAL 0.5 mg/dL (0.2-1.0); CALCIUM 7.8 mg/dL (8.5-10.1); CO2 31 mmol/L (21-32); CREATININE 0.4 mg/dL (0.55-1.02); GLUCOSE,RANDOM 93 mg/dL (74-106); SGOT/AST 24 U/L (15-37); SGPT/ALT 17 U/L (12-78); TOT PROT 5.5 g/dl (6.4-8.2)
[2017-02-20 08:09] LABS: BASOPHIL 0.3 % (0-2.0); EOSINOPHIL 0.2 % (0-4.5); MCH 32.2 pg (25.7-33.7); MCHC 33.3 g/dl (32.0-36.0); MEAN CELL VOLUME 96.5 fl (80-96); MEAN PLT VOLUME 7.9 fl (7.5-11.1); NEUTROPHILS 82.3 % (42.8-82.8); PLATELET COUNT 620 K/MM3 (134-434); WHITE BLOOD COUNT 13.5 K/mm3 (4.0-10.0)
[2017-02-20] MEDS ORDERED: PANTOPRAZOLE SODIUM 40 MG VIAL ONE (10:09)
[2017-02-20] MEDS ORDERED: SODIUM CHLORIDE 100 ML IVPB ONE (10:09)
[2017-02-20] MEDS: PANTOPRAZOLE SODIUM 40 MG in SODIUM CHLORIDE 100 ML IVPB SCH (10:16)
[2017-02-20] MEDS: ENALAPRIL MALEATE 10 MG TABLET (FP) PO SCH (10:16)
[2017-02-20] MEDS: METOPROLOL SUCCINATE 25 MG TAB.SR.24H (FP) PO SCH (10:17)
--- NOTE | 2017-02-20 10:30 | PN ---
Progress Note (short form) - Note Progress Note: Feels OK today. No CP or SOB. Tolerating PO intake. Some dry cough. Intake & Output 02/17/17 02/18/17 02/19/17 02/20/17 23:59 23:59 23:59 23:59 Intake Total 820 1300 1150 50 Output Total 260 550 465 0 Balance 560 750 685 50 Weight 198 lb 1.6 oz Last Vital Signs Temp Pulse Resp BP Pulse Ox 98.5 F 79 16 148/80 97 02/20/17 09:08 02/20/17 09:08 02/20/17 09:08 02/20/17 09:08 02/19/17 21:00 Active Medications Albuterol/Ipratropium (Duoneb -) 1 amp NEB TIDR [facility] Last Admin: 02/20/17 06:55 Dose: 1 amp Enalapril Maleate (Vasotec -) 20 mg PO DAILY [facility] Last Admin: 02/20/17 10:16 Dose: 20 mg Heparin Sodium (Porcine) (Heparin -) 5,000 unit SQ TID [facility] Last Admin: 02/20/17 05:59 Dose: 5,000 unit Piperacillin Sod/Tazobactam (Sod 3.375 gm/ Dextrose) 50 mls @ 100 mls/hr IVPB Q8H-IV [facility] PRN Reason: Protocol Last Admin: 02/20/17 09:16 Dose: 100 mls/hr Pantoprazole Sodium 40 mg/ (Sodium Chloride) 100 mls @ 200 mls/hr IVPB DAILY [facility] Last Admin: 02/20/17 10:16 Dose: 200 mls/hr Insulin Aspart (Novolog Vial Sliding Scale -) 1 vial SQ ACHS [facility] PRN Reason: Protocol Last Admin: 02/20/17 06:02 Dose: Not Given Metoprolol Succinate (Toprol Xl -) 25 mg PO DAILY [facility] Last Admin: 02/20/17 10:17 Dose: 25 mg Morphine Sulfate (Morphine Injection -) 2 mg IVPUSH Q4H PRN Last Admin: 02/20/17 01:26 Dose: 2 mg Ondansetron HCl (Zofran Injection) 4 mg IVPUSH Q6H PRN PRN Reason: NAUSEA AND/OR VOMITING GENERAL: The patient is awake, alert, and fully oriented HEAD: Normal with no signs of trauma. EYES: extraocular movements intact, sclera anicteric, conjunctiva clear. No ptosis. NECK: Trachea midline, full range of motion, supple. LUNGS: Breath sounds equal, clear to auscultation bilaterally, no wheezes, no crackles Cardiac: RRR, (-) murmur, rub or gallop. ABDOMEN: Soft, (+) functioning ostomy, (+) BS, (+) Mild tenderness NEUROLOGICAL: Non-focal SKIN: Warm, dry, surgical wound appears clean Laboratory Results - last 24 hr 02/19/17 02/19/17 02/20/17 17:40 21:35 06:00 WBC 13.5 H RBC 3.39 L Hgb 10.9 Hct 32.7 MCV 96.5 H MCH 32.2 MCHC 33.3 RDW 15.0 Plt Count 620 H D MPV 7.9 Neutrophils % 82.3 Lymphocytes % 9.4 Monocytes % 7.8 Eosinophils % 0.2 Basophils % 0.3 Sodium Potassium Chloride Carbon Dioxide Anion Gap BUN Creatinine Creat Clearance w eGFR POC Glucometer 91 115 Random Glucose Calcium Total Bilirubin AST ALT Alkaline Phosphatase Total Protein Albumin 02/20/17 02/20/17 06:00 06:00 WBC RBC Hgb Hct MCV MCH MCHC RDW Plt Count MPV Neutrophils % Lymphocytes % Monocytes % Eosinophils % Basophils % Sodium 138 Potassium 3.5 Chloride 100 Carbon Dioxide 31 Anion Gap 7 L BUN 4 L D Creatinine 0.4 L Creat Clearance w eGFR > 60 POC Glucometer 142 Random Glucose 93 Calcium 7.8 L Total Bilirubin 0.5 AST 24 D ALT 17 Alkaline Phosphatase 69 Total Protein 5.5 L Albumin 1.9 L ASSESSMENT/PLAN: S/P bowel perforation/diverticulitis Diverticulosis HTN DM Problem List - Problems (1) Acute abdomen Code(s): R10.0 - ACUTE ABDOMEN (2) Diabetes mellitus Code(s): E11.9 - TYPE 2 DIABETES MELLITUS WITHOUT COMPLICATIONS (3) Perforation bowel Code(s): K63.1 - PERFORATION OF INTESTINE (NONTRAUMATIC) (4) Sepsis Code(s): A41.9 - SEPSIS, UNSPECIFIED ORGANISM (5) Hypertension Code(s): I10 - ESSENTIAL (PRIMARY) HYPERTENSION PLAN: ABX per ID O2 as needed Incentive Spirometry BD TX Glycemic control VTE prophylaxis PO as tolerated OOB to chair Dr Raymundo
--- NOTE | 2017-02-20 12:17 | PN ---
Progress Note, Physician History of Present Illness: stable wbc trending down wound vac placed over the abd wound drainage tubes in place abscess drained from abd - Current Medication List Current Medications: Active Medications Albuterol/Ipratropium (Duoneb -) 1 amp NEB TIDR [facility] Last Admin: 02/20/17 06:55 Dose: 1 amp Enalapril Maleate (Vasotec -) 20 mg PO DAILY [facility] Last Admin: 02/20/17 10:16 Dose: 20 mg Heparin Sodium (Porcine) (Heparin -) 5,000 unit SQ TID [facility] Last Admin: 02/20/17 05:59 Dose: 5,000 unit Piperacillin Sod/Tazobactam (Sod 3.375 gm/ Dextrose) 50 mls @ 100 mls/hr IVPB Q8H-IV [facility] PRN Reason: Protocol Last Admin: 02/20/17 09:16 Dose: 100 mls/hr Pantoprazole Sodium 40 mg/ (Sodium Chloride) 100 mls @ 200 mls/hr IVPB DAILY [facility] Last Admin: 02/20/17 10:16 Dose: 200 mls/hr Insulin Aspart (Novolog Vial Sliding Scale -) 1 vial SQ ACHS [facility] PRN Reason: Protocol Last Admin: 02/20/17 06:02 Dose: Not Given Metoprolol Succinate (Toprol Xl -) 25 mg PO DAILY [facility] Last Admin: 02/20/17 10:17 Dose: 25 mg Morphine Sulfate (Morphine Injection -) 2 mg IVPUSH Q4H PRN Last Admin: 02/20/17 01:26 Dose: 2 mg Ondansetron HCl (Zofran Injection) 4 mg IVPUSH Q6H PRN PRN Reason: NAUSEA AND/OR VOMITING - Objective Vital Signs: Vital Signs Temperature 98.5 F 02/20/17 09:08 Pulse Rate 79 02/20/17 09:08 Respiratory Rate 16 02/20/17 09:08 Blood Pressure 148/80 02/20/17 09:08 O2 Sat by Pulse Oximetry (%) 97 02/19/17 21:00 Constitutional: Yes: No Distress, Calm Cardiovascular: Yes: Regular Rate and Rhythm Respiratory: Yes: Regular, CTA Bilaterally Gastrointestinal: Yes: Soft, Distention, Hypoactive Bowel Sounds, Other (drains in place) Musculoskeletal: Yes: WNL Extremities: Yes: WNL Wound/Incision: Yes: Other (wound vac in place) Labs: CBC, BMP 02/20/17 06:00 02/20/17 06:00 INR, PTT INR 1.29 (0.82-1.09) H 02/11/17 18:52 - ....Imaging Cat Scan: Report Reviewed, Image Reviewed Assessment/Plan Problem List - Problems (1) Acute abdomen Code(s): R10.0 - ACUTE ABDOMEN (2) Diabetes mellitus Code(s): E11.9 - TYPE 2 DIABETES MELLITUS WITHOUT COMPLICATIONS (3) Obesity Code(s): E66.9 - OBESITY, UNSPECIFIED Qualifiers: Obesity type: due to excess calories (4) Perforation bowel Code(s): K63.1 - PERFORATION OF INTESTINE (NONTRAUMATIC) (5) Septic shock Code(s): A41.9 - SEPSIS, UNSPECIFIED ORGANISM R65.21 - SEVERE SEPSIS WITH SEPTIC SHOCK all the factors seen plan continue iv abx await for final results rest as per surgery and primary team
--- NOTE | 2017-02-20 19:59 | PN ---
Progress Note, Physician - Current Medication List Current Medications: Active Medications Albuterol/Ipratropium (Duoneb -) 1 amp NEB [facility]IDR [facility] Last Admin: 02/20/17 14:11 Dose: 1 amp Enalapril Maleate (Vasotec -) 20 mg PO DAILY [facility] Last Admin: 02/20/17 10:16 Dose: 20 mg Heparin Sodium (Porcine) (Heparin -) 5,000 unit SQ TID [facility] Last Admin: 02/20/17 14:26 Dose: 5,000 unit Piperacillin Sod/Tazobactam (Sod 3.375 gm/ Dextrose) 50 mls @ 100 mls/hr IVPB Q8H-IV [facility] PRN Reason: Protocol Last Admin: 02/20/17 17:56 Dose: 100 mls/hr Pantoprazole Sodium 40 mg/ (Sodium Chloride) 100 mls @ 200 mls/hr IVPB DAILY [facility] Last Admin: 02/20/17 10:16 Dose: 200 mls/hr Metoprolol Succinate (Toprol Xl -) 25 mg PO DAILY [facility] Last Admin: 02/20/17 10:17 Dose: 25 mg Morphine Sulfate (Morphine Injection -) 2 mg IVPUSH Q4H PRN Last Admin: 02/20/17 18:14 Dose: 2 mg Ondansetron HCl (Zofran Injection) 4 mg IVPUSH Q6H PRN PRN Reason: NAUSEA AND/OR VOMITING - Objective Vital Signs: Vital Signs Temperature 98.0 F 02/20/17 15:18 Pulse Rate 76 02/20/17 15:18 Respiratory Rate 18 02/20/17 15:18 Blood Pressure 140/83 02/20/17 15:18 O2 Sat by Pulse Oximetry (%) 96 02/20/17 09:00 Constitutional: Yes: Well Nourished Cardiovascular: Yes: WNL, Regular Rate and Rhythm Respiratory: Yes: WNL, Regular, CTA Bilaterally Gastrointestinal: Yes: Other ((+) ileostomy (+) midline drainage tube w/ wound vac) Labs: CBC, BMP 02/20/17 06:00 02/20/17 06:00 INR, PTT INR 1.29 (0.82-1.09) H 02/11/17 18:52 Problem List - Problems (1) Perforation bowel Assessment/Plan: S/P laparotmy w/ sigmoid resection/transverse loop colectomy and lysis of adhesions. Intraabdominal absecess Cont wound care Cont IV zosyn Pt w/ some loose BM today Check stool for c diff Code(s): K63.1 - PERFORATION OF INTESTINE (NONTRAUMATIC) (2) Sepsis Assessment/Plan: Due to bowel perforation/diverticulitis Cont IV zosyn Wound culture (+) for E.Coli/enterococcus/strept viridans Code(s): A41.9 - SEPSIS, UNSPECIFIED ORGANISM (3) Diabetes mellitus Assessment/Plan: Cont sliding scale w/ novolog Code(s): E11.9 - TYPE 2 DIABETES MELLITUS WITHOUT COMPLICATIONS (4) Hypertension Assessment/Plan: BP stable Cont metoprolol Code(s): I10 - ESSENTIAL (PRIMARY) HYPERTENSION (5) Obesity Code(s): E66.9 - OBESITY, UNSPECIFIED Qualifiers: Obesity type: due to excess calories
[2017-02-21] MEDS: ALBUTEROL SO4 2.5/IPRATROPIUM 0.5 INH SOL 3 ML VIAL.NEB. NEB SCH ×4 (00:04→22:14)
[2017-02-21] MEDS: morphine CARPU-JECT 4 MG/1 ML DISP.SYRIN IVPUSH PRN ×2 (00:05→17:41)
[2017-02-21] MEDS: PIPERACILLIN/TAZOB 3.375 GM 3.375 GM in DEXTROSE 5%-WATER - 50 ML IVPB SCH ×3 (01:00→17:37)
[2017-02-21] MEDS: HEPARIN NA (PORCINE) 5,000 UNITS/ML 1ML VIAL SQ SCH ×3 (05:55→21:58)
[2017-02-21 08:05] LABS: BASOPHIL 0.6 % (0-2.0); EOSINOPHIL 0.2 % (0-4.5); MCH 32.4 pg (25.7-33.7); MCHC 33.6 g/dl (32.0-36.0); MEAN CELL VOLUME 96.5 fl (80-96); MEAN PLT VOLUME 8.2 fl (7.5-11.1); NEUTROPHILS 83.4 % (42.8-82.8); PLATELET COUNT 646 K/MM3 (134-434); WHITE BLOOD COUNT 13.4 K/mm3 (4.0-10.0)
[2017-02-21 08:33] LABS: ALBUMIN 1.9 g/dl (3.4-5.0); ANION GAP 8 (8-16); CALCIUM 8.1 mg/dL (8.5-10.1); CO2 28 mmol/L (21-32); CREATININE 0.5 mg/dL (0.55-1.02); GLUCOSE,RANDOM 74 mg/dL (74-106); SGOT/AST 20 U/L (15-37); SGPT/ALT 15 U/L (12-78)
[2017-02-21 08:34] LABS: ALK PHOS 65 U/L (45-117); BILIRUBIN,TOTAL 0.5 mg/dL (0.2-1.0); TOT PROT 5.6 g/dl (6.4-8.2)
[2017-02-21] MEDS ORDERED: SODIUM CHLORIDE 100 ML IVPB ONE (09:47)
[2017-02-21] MEDS ORDERED: PANTOPRAZOLE SODIUM 40 MG VIAL ONE (09:47)
[2017-02-21] MEDS ORDERED: PIPERACILLIN/TAZOBACTAM 3.375 GM VIAL IVPB ONE ×3 (09:47→20:11)
[2017-02-21] MEDS ORDERED: DEXTROSE 5%-WATER - 50 ML IVPB ONE ×3 (09:48→20:11)
[2017-02-21] MEDS: PANTOPRAZOLE SODIUM 40 MG in SODIUM CHLORIDE 100 ML IVPB SCH (10:03)
[2017-02-21] MEDS: ENALAPRIL MALEATE 10 MG TABLET (FP) PO SCH (10:04)
[2017-02-21] MEDS: METOPROLOL SUCCINATE 25 MG TAB.SR.24H (FP) PO SCH (10:04)
--- NOTE | 2017-02-21 11:29 | PN ---
Progress Note, Physician History of Present Illness: patient stable still with some abd discomfort abd dressing in place drainage tube with minimal drainage tolerated full liquid diet - Current Medication List Current Medications: Active Medications Albuterol/Ipratropium (Duoneb -) 1 amp NEB TIDR [facility] Last Admin: 02/21/17 07:40 Dose: 1 amp Enalapril Maleate (Vasotec -) 20 mg PO DAILY [facility] Last Admin: 02/21/17 10:04 Dose: 20 mg Heparin Sodium (Porcine) (Heparin -) 5,000 unit SQ TID [facility] Last Admin: 02/21/17 05:55 Dose: 5,000 unit Piperacillin Sod/Tazobactam (Sod 3.375 gm/ Dextrose) 50 mls @ 100 mls/hr IVPB Q8H-IV [facility] PRN Reason: Protocol Last Admin: 02/21/17 09:03 Dose: 100 mls/hr Pantoprazole Sodium 40 mg/ (Sodium Chloride) 100 mls @ 200 mls/hr IVPB DAILY [facility] Last Admin: 02/21/17 10:03 Dose: 200 mls/hr Metoprolol Succinate (Toprol Xl -) 25 mg PO DAILY [facility] Last Admin: 02/21/17 10:04 Dose: 25 mg Morphine Sulfate (Morphine Injection -) 2 mg IVPUSH Q4H PRN Last Admin: 02/21/17 00:05 Dose: 2 mg Ondansetron HCl (Zofran Injection) 4 mg IVPUSH Q6H PRN PRN Reason: NAUSEA AND/OR VOMITING - Objective Vital Signs: Vital Signs Temperature 98 F 02/21/17 05:55 Pulse Rate 82 02/21/17 05:55 Respiratory Rate 16 02/21/17 08:17 Blood Pressure 146/74 02/21/17 05:55 O2 Sat by Pulse Oximetry (%) 98 02/21/17 08:17 Constitutional: Yes: No Distress, Calm Cardiovascular: Yes: Regular Rate and Rhythm Respiratory: Yes: Regular, CTA Bilaterally Gastrointestinal: Yes: Hypoactive Bowel Sounds, Other (colostomy draiange tube in place) Musculoskeletal: Yes: Other Wound/Incision: Yes: Other (wound vac in place) Neurological: Yes: Alert, Oriented Psychiatric: Yes: Alert, Oriented Labs: CBC, BMP 02/21/17 06:30 02/21/17 06:30 INR, PTT INR 1.29 (0.82-1.09) H 02/11/17 18:52 Assessment/Plan Problem List - Problems (1) Acute abdomen Code(s): R10.0 - ACUTE ABDOMEN (2) Diabetes mellitus Code(s): E11.9 - TYPE 2 DIABETES MELLITUS WITHOUT COMPLICATIONS (3) Obesity Code(s): E66.9 - OBESITY, UNSPECIFIED Qualifiers: Obesity type: due to excess calories (4) Perforation bowel Code(s): K63.1 - PERFORATION OF INTESTINE (NONTRAUMATIC) (5) Septic shock Code(s): A41.9 - SEPSIS, UNSPECIFIED ORGANISM R65.21 - SEVERE SEPSIS WITH SEPTIC SHOCK all the factors seen plan continue iv abx await for final results rest as per surgery and primary team await for cx result
--- NOTE | 2017-02-21 11:33 | PN ---
Progress Note (short form) - Note Progress Note: Feels OK today. No CP or SOB. Tolerating PO intake. Some dry cough. Intake & Output 02/18/17 02/19/17 02/20/17 02/21/17 23:59 23:59 23:59 23:59 Intake Total 1300 1150 950 440 Output Total 550 465 840 355 Balance 750 685 110 85 Last Vital Signs Temp Pulse Resp BP Pulse Ox 98 F 82 16 146/74 98 02/21/17 05:55 02/21/17 05:55 02/21/17 08:17 02/21/17 05:55 02/21/17 08:17 Active Medications Albuterol/Ipratropium (Duoneb -) 1 amp NEB TIDR [facility] Last Admin: 02/21/17 07:40 Dose: 1 amp Enalapril Maleate (Vasotec -) 20 mg PO DAILY [facility] Last Admin: 02/21/17 10:04 Dose: 20 mg Heparin Sodium (Porcine) (Heparin -) 5,000 unit SQ TID [facility] Last Admin: 02/21/17 05:55 Dose: 5,000 unit Piperacillin Sod/Tazobactam (Sod 3.375 gm/ Dextrose) 50 mls @ 100 mls/hr IVPB Q8H-IV [facility] PRN Reason: Protocol Last Admin: 02/21/17 09:03 Dose: 100 mls/hr Pantoprazole Sodium 40 mg/ (Sodium Chloride) 100 mls @ 200 mls/hr IVPB DAILY [facility] Last Admin: 02/21/17 10:03 Dose: 200 mls/hr Metoprolol Succinate (Toprol Xl -) 25 mg PO DAILY [facility] Last Admin: 02/21/17 10:04 Dose: 25 mg Morphine Sulfate (Morphine Injection -) 2 mg IVPUSH Q4H PRN Last Admin: 02/21/17 00:05 Dose: 2 mg Ondansetron HCl (Zofran Injection) 4 mg IVPUSH Q6H PRN PRN Reason: NAUSEA AND/OR VOMITING GENERAL: The patient is awake, alert, and fully oriented HEAD: Normal with no signs of trauma. EYES: extraocular movements intact, sclera anicteric, conjunctiva clear. No ptosis. NECK: Trachea midline, full range of motion, supple. LUNGS: Breath sounds equal, clear to auscultation bilaterally, no wheezes, no crackles Cardiac: RRR, (-) murmur, rub or gallop. ABDOMEN: Soft, (+) functioning ostomy, (+) BS, (+) Minimal tenderness NEUROLOGICAL: Non-focal SKIN: Warm, dry, surgical wound appears clean Laboratory Results - last 24 hr 02/21/17 02/21/17 06:30 06:30 WBC 13.4 H RBC 3.21 L Hgb 10.4 L Hct 31.0 L MCV 96.5 H MCH 32.4 MCHC 33.6 RDW 15.0 Plt Count 646 H MPV 8.2 Neutrophils % 83.4 H Lymphocytes % 9.2 Monocytes % 6.6 Eosinophils % 0.2 Basophils % 0.6 Sodium 138 Potassium 4.0 Chloride 102 Carbon Dioxide 28 Anion Gap 8 BUN 4 L Creatinine 0.5 L D Creat Clearance w eGFR > 60 Random Glucose 74 D Calcium 8.1 L Total Bilirubin 0.5 AST 20 ALT 15 Alkaline Phosphatase 65 Total Protein 5.6 L Albumin 1.9 L ASSESSMENT/PLAN: S/P bowel perforation/diverticulitis Diverticulosis HTN DM Problem List - Problems (1) Acute abdomen Code(s): R10.0 - ACUTE ABDOMEN (2) Diabetes mellitus Code(s): E11.9 - TYPE 2 DIABETES MELLITUS WITHOUT COMPLICATIONS (3) Perforation bowel Code(s): K63.1 - PERFORATION OF INTESTINE (NONTRAUMATIC) (4) Sepsis Code(s): A41.9 - SEPSIS, UNSPECIFIED ORGANISM (5) Hypertension Code(s): I10 - ESSENTIAL (PRIMARY) HYPERTENSION PLAN: ABX per ID O2 as needed Incentive Spirometry BD TX Glycemic control VTE prophylaxis PO as tolerated OOB to chair Dr Raymundo
--- NOTE | 2017-02-21 11:56 | PN ---
Progress Note, Physician - Current Medication List Current Medications: Active Medications Albuterol/Ipratropium (Duoneb -) 1 amp NEB TIDR [facility] Last Admin: 02/21/17 07:40 Dose: 1 amp Enalapril Maleate (Vasotec -) 20 mg PO DAILY [facility] Last Admin: 02/21/17 10:04 Dose: 20 mg Heparin Sodium (Porcine) (Heparin -) 5,000 unit SQ TID [facility] Last Admin: 02/21/17 05:55 Dose: 5,000 unit Piperacillin Sod/Tazobactam (Sod 3.375 gm/ Dextrose) 50 mls @ 100 mls/hr IVPB Q8H-IV [facility] PRN Reason: Protocol Last Admin: 02/21/17 09:03 Dose: 100 mls/hr Pantoprazole Sodium 40 mg/ (Sodium Chloride) 100 mls @ 200 mls/hr IVPB DAILY [facility] Last Admin: 02/21/17 10:03 Dose: 200 mls/hr Metoprolol Succinate (Toprol Xl -) 25 mg PO DAILY [facility] Last Admin: 02/21/17 10:04 Dose: 25 mg Morphine Sulfate (Morphine Injection -) 2 mg IVPUSH Q4H PRN Last Admin: 02/21/17 00:05 Dose: 2 mg Ondansetron HCl (Zofran Injection) 4 mg IVPUSH Q6H PRN PRN Reason: NAUSEA AND/OR VOMITING - Objective Vital Signs: Vital Signs Temperature 98.1 F 02/21/17 10:00 Pulse Rate 77 02/21/17 10:00 Respiratory Rate 16 02/21/17 10:00 Blood Pressure 153/82 02/21/17 10:00 O2 Sat by Pulse Oximetry (%) 98 02/21/17 08:17 Labs: CBC, BMP 02/21/17 06:30 02/21/17 06:30 INR, PTT INR 1.29 (0.82-1.09) H 02/11/17 18:52 Problem List - Problems (1) Perforation bowel Code(s): K63.1 - PERFORATION OF INTESTINE (NONTRAUMATIC) (2) Acute abdomen Code(s): R10.0 - ACUTE ABDOMEN (3) Obesity Code(s): E66.9 - OBESITY, UNSPECIFIED Qualifiers: (4) Diabetes mellitus Code(s): E11.9 - TYPE 2 DIABETES MELLITUS WITHOUT COMPLICATIONS Assessment/Plan Surgery; Patient is afebrile, Wound with wound VAC, Colostomy is functioning. Cultures from abdominal aspirate, [place] [address]. Progress diet. Ambulate.
--- NOTE | 2017-02-21 23:47 | PN ---
Progress Note, Physician History of Present Illness: No new complaints - Current Medication List Current Medications: Active Medications Enalapril Maleate (Vasotec -) 20 mg PO DAILY [facility] Last Admin: 02/21/17 10:04 Dose: 20 mg Heparin Sodium (Porcine) (Heparin -) 5,000 unit SQ TID [facility] Last Admin: 02/21/17 21:58 Dose: 5,000 unit Piperacillin Sod/Tazobactam (Sod 3.375 gm/ Dextrose) 50 mls @ 100 mls/hr IVPB Q8H-IV [facility] PRN Reason: Protocol Last Admin: 02/21/17 17:37 Dose: 100 mls/hr Pantoprazole Sodium 40 mg/ (Sodium Chloride) 100 mls @ 200 mls/hr IVPB DAILY [facility] Last Admin: 02/21/17 10:03 Dose: 200 mls/hr Metoprolol Succinate (Toprol Xl -) 25 mg PO DAILY [facility] Last Admin: 02/21/17 10:04 Dose: 25 mg Morphine Sulfate (Morphine Injection -) 2 mg IVPUSH Q4H PRN Last Admin: 02/21/17 17:41 Dose: 2 mg Ondansetron HCl (Zofran Injection) 4 mg IVPUSH Q6H PRN PRN Reason: NAUSEA AND/OR VOMITING - Objective Vital Signs: Vital Signs Temperature 98.5 F 02/21/17 15:11 Pulse Rate 83 02/21/17 15:11 Respiratory Rate 18 02/21/17 15:11 Blood Pressure 129/79 02/21/17 15:11 O2 Sat by Pulse Oximetry (%) 98 02/21/17 08:17 Constitutional: Yes: Well Nourished Neck: Yes: WNL, Supple Cardiovascular: Yes: WNL, Regular Rate and Rhythm Respiratory: Yes: WNL, Regular, CTA Bilaterally Gastrointestinal: Yes: Soft, Abdomen, Obese, Other (ileostomy (+) drainage tube to wound vac) Labs: CBC, BMP 02/21/17 06:30 02/21/17 06:30 INR, PTT INR 1.29 (0.82-1.09) H 02/11/17 18:52 Problem List - Problems (1) Perforation bowel Assessment/Plan: S/P laparotmy w/ sigmoid resection/transverse loop colectomy and lysis of adhesions. Intraabdominal absecess Cont wound care Cont IV zosyn Code(s): K63.1 - PERFORATION OF INTESTINE (NONTRAUMATIC) (2) Sepsis Assessment/Plan: Due to bowel perforation/diverticulitis Cont IV zosyn Wound culture (+) for E.Coli/enterococcus/strept viridans Code(s): A41.9 - SEPSIS, UNSPECIFIED ORGANISM (3) Diabetes mellitus Assessment/Plan: Cont sliding scale w/ novolog Code(s): E11.9 - TYPE 2 DIABETES MELLITUS WITHOUT COMPLICATIONS (4) Hypertension Code(s): I10 - ESSENTIAL (PRIMARY) HYPERTENSION (5) Obesity Code(s): E66.9 - OBESITY, UNSPECIFIED Qualifiers: Obesity type: due to excess calories
[2017-02-22] MEDS: morphine CARPU-JECT 4 MG/1 ML DISP.SYRIN IVPUSH PRN ×2 (00:22→15:04)
[2017-02-22] MEDS: PIPERACILLIN/TAZOB 3.375 GM 3.375 GM in DEXTROSE 5%-WATER - 50 ML IVPB SCH ×3 (01:57→17:18)
[2017-02-22] MEDS: HEPARIN NA (PORCINE) 5,000 UNITS/ML 1ML VIAL SQ SCH ×3 (06:35→23:04)
[2017-02-22] MEDS ORDERED: PANTOPRAZOLE SODIUM 40 MG VIAL ONE (09:56)
[2017-02-22] MEDS ORDERED: SODIUM CHLORIDE 100 ML IVPB ONE (09:57)
[2017-02-22] MEDS ORDERED: DEXTROSE 5%-WATER - 50 ML IVPB ONE ×2 (09:57→17:11)
[2017-02-22] MEDS ORDERED: PIPERACILLIN/TAZOBACTAM 3.375 GM VIAL IVPB ONE ×2 (09:57→17:10)
[2017-02-22] MEDS: PANTOPRAZOLE SODIUM 40 MG in SODIUM CHLORIDE 100 ML IVPB SCH (10:03)
[2017-02-22] MEDS: METOPROLOL SUCCINATE 25 MG TAB.SR.24H (FP) PO SCH (10:04)
[2017-02-22] MEDS: ENALAPRIL MALEATE 10 MG TABLET (FP) PO SCH (10:04)
--- NOTE | 2017-02-22 14:08 | PN ---
Progress Note, Physician History of Present Illness: stable no new issues - Current Medication List Current Medications: Active Medications Enalapril Maleate (Vasotec -) 20 mg PO DAILY [facility] Last Admin: 02/22/17 10:04 Dose: 20 mg Heparin Sodium (Porcine) (Heparin -) 5,000 unit SQ TID [facility] Last Admin: 02/22/17 06:35 Dose: 5,000 unit Piperacillin Sod/Tazobactam (Sod 3.375 gm/ Dextrose) 50 mls @ 100 mls/hr IVPB Q8H-IV [facility] PRN Reason: Protocol Last Admin: 02/22/17 11:43 Dose: 100 mls/hr Pantoprazole Sodium 40 mg/ (Sodium Chloride) 100 mls @ 200 mls/hr IVPB DAILY [facility] Last Admin: 02/22/17 10:03 Dose: 200 mls/hr Metoprolol Succinate (Toprol Xl -) 25 mg PO DAILY [facility] Last Admin: 02/22/17 10:04 Dose: 25 mg Morphine Sulfate (Morphine Injection -) 2 mg IVPUSH Q4H PRN Last Admin: 02/22/17 00:22 Dose: 2 mg Ondansetron HCl (Zofran Injection) 4 mg IVPUSH Q6H PRN PRN Reason: NAUSEA AND/OR VOMITING - Objective Vital Signs: Vital Signs Temperature 99.8 F H 02/22/17 08:33 Pulse Rate 76 02/22/17 08:33 Respiratory Rate 20 02/22/17 08:33 Blood Pressure 149/82 02/22/17 08:33 O2 Sat by Pulse Oximetry (%) 97 02/22/17 09:00 Constitutional: Yes: No Distress, Calm Cardiovascular: Yes: Regular Rate and Rhythm Respiratory: Yes: Regular, CTA Bilaterally Gastrointestinal: Yes: Normal Bowel Sounds, Soft, Other Musculoskeletal: Yes: WNL Extremities: Yes: WNL Wound/Incision: Yes: Other (draiange tube in place wound vac present) Neurological: Yes: Alert, Oriented Psychiatric: Yes: Alert Labs: CBC, BMP 02/21/17 06:30 02/21/17 06:30 INR, PTT INR 1.29 (0.82-1.09) H 02/11/17 18:52 Assessment/Plan Problem List - Problems (1) Acute abdomen Code(s): R10.0 - ACUTE ABDOMEN (2) Diabetes mellitus Code(s): E11.9 - TYPE 2 DIABETES MELLITUS WITHOUT COMPLICATIONS (3) Obesity Code(s): E66.9 - OBESITY, UNSPECIFIED Qualifiers: Obesity type: due to excess calories (4) Perforation bowel Code(s): K63.1 - PERFORATION OF INTESTINE (NONTRAUMATIC) (5) Septic shock Code(s): A41.9 - SEPSIS, UNSPECIFIED ORGANISM R65.21 - SEVERE SEPSIS WITH SEPTIC SHOCK all the factors seen plan continue iv abx will start deescalating abx from tomorrow wound care going to have a look at the wound will see wbc tomorrow rest as per primary team
--- NOTE | 2017-02-22 15:34 | PN ---
Progress Note, Physician - Current Medication List Current Medications: Active Medications Enalapril Maleate (Vasotec -) 20 mg PO DAILY [facility] Last Admin: 02/22/17 10:04 Dose: 20 mg Heparin Sodium (Porcine) (Heparin -) 5,000 unit SQ TID [facility] Last Admin: 02/22/17 14:06 Dose: 5,000 unit Piperacillin Sod/Tazobactam (Sod 3.375 gm/ Dextrose) 50 mls @ 100 mls/hr IVPB Q8H-IV [facility] PRN Reason: Protocol Last Admin: 02/22/17 11:43 Dose: 100 mls/hr Pantoprazole Sodium 40 mg/ (Sodium Chloride) 100 mls @ 200 mls/hr IVPB DAILY [facility] Last Admin: 02/22/17 10:03 Dose: 200 mls/hr Metoprolol Succinate (Toprol Xl -) 25 mg PO DAILY [facility] Last Admin: 02/22/17 10:04 Dose: 25 mg Morphine Sulfate (Morphine Injection -) 2 mg IVPUSH Q4H PRN Last Admin: 02/22/17 15:04 Dose: 2 mg Ondansetron HCl (Zofran Injection) 4 mg IVPUSH Q6H PRN PRN Reason: NAUSEA AND/OR VOMITING - Objective Vital Signs: Vital Signs Temperature 98.1 F 02/22/17 15:13 Pulse Rate 92 H 02/22/17 15:13 Respiratory Rate 18 02/22/17 15:13 Blood Pressure 148/79 02/22/17 15:13 O2 Sat by Pulse Oximetry (%) 98 02/22/17 14:57 Labs: CBC, BMP 02/21/17 06:30 02/21/17 06:30 INR, PTT INR 1.29 (0.82-1.09) H 02/11/17 18:52 Problem List - Problems (1) Perforation bowel Code(s): K63.1 - PERFORATION OF INTESTINE (NONTRAUMATIC) (2) Acute abdomen Code(s): R10.0 - ACUTE ABDOMEN (3) Obesity Code(s): E66.9 - OBESITY, UNSPECIFIED Qualifiers: (4) Diabetes mellitus Code(s): E11.9 - TYPE 2 DIABETES MELLITUS WITHOUT COMPLICATIONS Assessment/Plan Surgery; Patient is afebrile, Wound with wound VAC, Dressing changed. Wound is pink, and granulating well Colostomy is functioning. Patient also had bowel movement rectally. Madelaine drain , under the colstomy removed. Cultures from abdominal aspirate, [place] [address], still. drain , not draining any fluid or pus, removed. Ambulate. Discharge planning.
[2017-02-22] MEDS: IBUPROFEN 200 MG TABLET PO PRN (18:55)
[2017-02-22] MEDS ORDERED: PT OWN MED DRAWER 7, Y5N ONE (19:02)
--- NOTE | 2017-02-22 23:40 | PN ---
Progress Note, Physician History of Present Illness: No new complaints - Current Medication List Current Medications: Active Medications Enalapril Maleate (Vasotec -) 20 mg PO DAILY [facility] Last Admin: 02/22/17 10:04 Dose: 20 mg Heparin Sodium (Porcine) (Heparin -) 5,000 unit SQ TID [facility] Last Admin: 02/22/17 23:04 Dose: 5,000 unit Piperacillin Sod/Tazobactam (Sod 3.375 gm/ Dextrose) 50 mls @ 100 mls/hr IVPB Q8H-IV [facility] PRN Reason: Protocol Last Admin: 02/22/17 17:18 Dose: 100 mls/hr Ibuprofen (Advil -) 200 mg PO Q6H PRN PRN Reason: PAIN Last Admin: 02/22/17 18:55 Dose: 200 mg Metoprolol Succinate (Toprol Xl -) 25 mg PO DAILY [facility] Last Admin: 02/22/17 10:04 Dose: 25 mg Ondansetron HCl (Zofran Injection) 4 mg IVPUSH Q6H PRN PRN Reason: NAUSEA AND/OR VOMITING Pantoprazole Sodium (Protonix -) 40 mg PO DAILY [facility] - Objective Vital Signs: Vital Signs Temperature 99.9 F H 02/22/17 17:20 Pulse Rate 80 02/22/17 17:20 Respiratory Rate 20 02/22/17 17:20 Blood Pressure 141/79 02/22/17 17:20 O2 Sat by Pulse Oximetry (%) 98 02/22/17 14:57 Constitutional: Yes: Well Nourished Cardiovascular: Yes: WNL, Regular Rate and Rhythm Respiratory: Yes: WNL, Regular, CTA Bilaterally Gastrointestinal: Yes: WNL, Normal Bowel Sounds, Soft, Other ((+) ileostomy (+) wound w/ wound vac) Labs: CBC, BMP 02/21/17 06:30 02/21/17 06:30 INR, PTT INR 1.29 (0.82-1.09) H 02/11/17 18:52 Problem List - Problems (1) Perforation bowel Assessment/Plan: S/P laparotmy w/ sigmoid resection/transverse loop colectomy and lysis of adhesions. Intraabdominal absecess Decreased drainage from wound vac Cont IV atnibxs as per ID DC planning Will get PT eval Code(s): K63.1 - PERFORATION OF INTESTINE (NONTRAUMATIC) (2) Sepsis Assessment/Plan: Due to bowel perforation/diverticulitis Cont IV zosyn Wound culture (+) for E.Coli/enterococcus/strept viridans Code(s): A41.9 - SEPSIS, UNSPECIFIED ORGANISM (3) Diabetes mellitus Assessment/Plan: Cont sliding scale w/ novolog Code(s): E11.9 - TYPE 2 DIABETES MELLITUS WITHOUT COMPLICATIONS (4) Hypertension Code(s): I10 - ESSENTIAL (PRIMARY) HYPERTENSION (5) Obesity Code(s): E66.9 - OBESITY, UNSPECIFIED Qualifiers: Obesity type: due to excess calories
[2017-02-23] MEDS ORDERED: PIPERACILLIN/TAZOBACTAM 3.375 GM VIAL IVPB ONE ×2 (01:36→09:42)
[2017-02-23] MEDS ORDERED: PT OWN MED DRAWER 7, Y5N ONE ×4 (01:36→18:17)
[2017-02-23] MEDS ORDERED: DEXTROSE 5%-WATER - 50 ML IVPB ONE ×2 (01:36→09:42)
[2017-02-23] MEDS: IBUPROFEN 200 MG TABLET PO PRN ×3 (01:38→18:13)
[2017-02-23] MEDS: PIPERACILLIN/TAZOB 3.375 GM 3.375 GM in DEXTROSE 5%-WATER - 50 ML IVPB SCH ×2 (01:39→10:00)
[2017-02-23] MEDS: HEPARIN NA (PORCINE) 5,000 UNITS/ML 1ML VIAL SQ SCH ×3 (06:21→21:39)
[2017-02-23 07:54] LABS: BASOPHIL 0.3 % (0-2.0); EOSINOPHIL 0.4 % (0-4.5); MCH 32.3 pg (25.7-33.7); MCHC 33.5 g/dl (32.0-36.0); MEAN CELL VOLUME 96.4 fl (80-96); MEAN PLT VOLUME 8.1 fl (7.5-11.1); NEUTROPHILS 83.4 % (42.8-82.8); PLATELET COUNT 719 K/MM3 (134-434); WHITE BLOOD COUNT 13.3 K/mm3 (4.0-10.0)
[2017-02-23 07:59] LABS: ANION GAP 9 (8-16); CALCIUM 8.6 mg/dL (8.5-10.1); CO2 28 mmol/L (21-32); CREATININE 0.5 mg/dL (0.55-1.02); GLUCOSE,RANDOM 76 mg/dL (74-106)
[2017-02-23] MEDS: ENALAPRIL MALEATE 10 MG TABLET (FP) PO SCH (09:59)
[2017-02-23] MEDS: METOPROLOL SUCCINATE 25 MG TAB.SR.24H (FP) PO SCH (09:59)
[2017-02-23] MEDS: PANTOPRAZOLE 40 MG TABLET (FP) PO SCH (09:59)
--- NOTE | 2017-02-23 13:16 | PN ---
Progress Note, Physician History of Present Illness: doing well no complaints tolerating diet - Current Medication List Current Medications: Active Medications Enalapril Maleate (Vasotec -) 20 mg PO DAILY [facility] Last Admin: 02/23/17 09:59 Dose: 20 mg Heparin Sodium (Porcine) (Heparin -) 5,000 unit SQ TID [facility] Last Admin: 02/23/17 06:21 Dose: 5,000 unit Piperacillin Sod/Tazobactam (Sod 3.375 gm/ Dextrose) 50 mls @ 100 mls/hr IVPB Q8H-IV [facility] PRN Reason: Protocol Last Admin: 02/23/17 10:00 Dose: 100 mls/hr Ibuprofen (Advil -) 200 mg PO Q6H PRN PRN Reason: PAIN Last Admin: 02/23/17 10:00 Dose: 200 mg Metoprolol Succinate (Toprol Xl -) 25 mg PO DAILY [facility] Last Admin: 02/23/17 09:59 Dose: 25 mg Ondansetron HCl (Zofran Injection) 4 mg IVPUSH Q6H PRN PRN Reason: NAUSEA AND/OR VOMITING Pantoprazole Sodium (Protonix -) 40 mg PO DAILY [facility] Last Admin: 02/23/17 09:59 Dose: 40 mg - Objective Vital Signs: Vital Signs Temperature 98.8 F 02/23/17 08:42 Pulse Rate 78 02/23/17 08:42 Respiratory Rate 20 02/23/17 08:42 Blood Pressure 148/86 02/23/17 08:42 O2 Sat by Pulse Oximetry (%) 98 02/23/17 12:17 Constitutional: Yes: No Distress, Calm Cardiovascular: Yes: Regular Rate and Rhythm Respiratory: Yes: Regular, CTA Bilaterally Gastrointestinal: Yes: Normal Bowel Sounds, Soft, Other (colostomy) Musculoskeletal: Yes: WNL Extremities: Yes: WNL Neurological: Yes: Alert, Oriented Psychiatric: Yes: Alert, Oriented Labs: CBC, BMP 02/23/17 06:30 02/23/17 06:30 INR, PTT INR 1.29 (0.82-1.09) H 02/11/17 18:52 Assessment/Plan Problem List - Problems (1) Acute abdomen Code(s): R10.0 - ACUTE ABDOMEN (2) Diabetes mellitus Code(s): E11.9 - TYPE 2 DIABETES MELLITUS WITHOUT COMPLICATIONS (3) Obesity Code(s): E66.9 - OBESITY, UNSPECIFIED Qualifiers: Obesity type: due to excess calories (4) Perforation bowel Code(s): K63.1 - PERFORATION OF INTESTINE (NONTRAUMATIC) (5) Septic shock Code(s): A41.9 - SEPSIS, UNSPECIFIED ORGANISM R65.21 - SEVERE SEPSIS WITH SEPTIC SHOCK all the factors seen plan will switch to oral today will monitor how patient does on oral
[2017-02-23] MEDS: AMOX TR/POT CLAV 875MG/125MG TABLETS (FP) PO SCH (17:14)
--- NOTE | 2017-02-23 23:49 | PN ---
Progress Note, Physician History of Present Illness: No new complaints - Current Medication List Current Medications: Active Medications Amoxicillin/Clavulanate Potassium (Augmentin - 875mg Tablet) 1 tab PO BID@0800, 1730 [facility] Last Admin: 02/23/17 17:14 Dose: 1 tab Enalapril Maleate (Vasotec -) 20 mg PO DAILY [facility] Last Admin: 02/23/17 09:59 Dose: 20 mg Ibuprofen (Advil -) 200 mg PO Q6H PRN PRN Reason: PAIN Last Admin: 02/23/17 18:13 Dose: 200 mg Metoprolol Succinate (Toprol Xl -) 25 mg PO DAILY [facility] Last Admin: 02/23/17 09:59 Dose: 25 mg Ondansetron HCl (Zofran Injection) 4 mg IVPUSH Q6H PRN PRN Reason: NAUSEA AND/OR VOMITING Pantoprazole Sodium (Protonix -) 40 mg PO DAILY [facility] Last Admin: 02/23/17 09:59 Dose: 40 mg - Objective Vital Signs: Vital Signs Temperature 100 F H 02/23/17 17:21 Pulse Rate 77 02/23/17 17:21 Respiratory Rate 20 02/23/17 21:00 Blood Pressure 145/80 02/23/17 17:21 O2 Sat by Pulse Oximetry (%) 98 02/23/17 21:00 Constitutional: Yes: Well Nourished Neck: Yes: WNL, Supple Cardiovascular: Yes: WNL, Regular Rate and Rhythm Respiratory: Yes: WNL, Regular, CTA Bilaterally Gastrointestinal: Yes: WNL, Normal Bowel Sounds, Other ((+) ileostomy (+) wound vac) Labs: CBC, BMP 02/23/17 06:30 02/23/17 06:30 INR, PTT INR 1.29 (0.82-1.09) H 02/11/17 18:52 Problem List - Problems (1) Perforation bowel Assessment/Plan: S/P laparotmy w/ sigmoid resection/transverse loop colectomy and lysis of adhesions. Intraabdominal absecess Decreased drainage from wound vac Change to po antibxs in am DC planning to STR in am Code(s): K63.1 - PERFORATION OF INTESTINE (NONTRAUMATIC) (2) Sepsis Assessment/Plan: Due to bowel perforation/diverticulitis Change to po antibxs in am Wound culture (+) for E.Coli/enterococcus/strept viridans Code(s): A41.9 - SEPSIS, UNSPECIFIED ORGANISM (3) Diabetes mellitus Assessment/Plan: Cont sliding scale w/ novolog Code(s): E11.9 - TYPE 2 DIABETES MELLITUS WITHOUT COMPLICATIONS (4) Hypertension Assessment/Plan: BP stable Cont metoprolol Code(s): I10 - ESSENTIAL (PRIMARY) HYPERTENSION (5) Obesity Code(s): E66.9 - OBESITY, UNSPECIFIED Qualifiers: Obesity type: due to excess calories
[2017-02-24] MEDS ORDERED: PT OWN MED DRAWER 7, Y5N ONE (01:11)
[2017-02-24] MEDS: IBUPROFEN 200 MG TABLET PO PRN (01:17)
[2017-02-24] MEDS: AMOX TR/POT CLAV 875MG/125MG TABLETS (FP) PO SCH ×2 (09:40→19:05)
[2017-02-24] MEDS: ENALAPRIL MALEATE 10 MG TABLET (FP) PO SCH (09:40)
[2017-02-24] MEDS: METOPROLOL SUCCINATE 25 MG TAB.SR.24H (FP) PO SCH (09:40)
[2017-02-24] MEDS: PANTOPRAZOLE 40 MG TABLET (FP) PO SCH (09:40)
[2017-02-24] MEDS ORDERED: oxyCODONE HCL 5 MG TABLET PO ONE ×2 (12:45→15:45)
[2017-02-24] MEDS ORDERED: ACETAMINOPHEN 325 MG TABLET (FP) PO ONE (13:00)
--- NOTE | 2017-02-24 14:06 | PN ---
Progress Note, Physician History of Present Illness: doing well no new issues - Current Medication List Current Medications: Active Medications Amoxicillin/Clavulanate Potassium (Augmentin - 875mg Tablet) 1 tab PO BID@0800, 1730 [facility] Last Admin: 02/24/17 09:40 Dose: 1 tab Enalapril Maleate (Vasotec -) 20 mg PO DAILY [facility] Last Admin: 02/24/17 09:40 Dose: 20 mg Ibuprofen (Advil -) 200 mg PO Q6H PRN PRN Reason: PAIN Last Admin: 02/24/17 01:17 Dose: 200 mg Metoprolol Succinate (Toprol Xl -) 25 mg PO DAILY [facility] Last Admin: 02/24/17 09:40 Dose: 25 mg Ondansetron HCl (Zofran Injection) 4 mg IVPUSH Q6H PRN PRN Reason: NAUSEA AND/OR VOMITING Pantoprazole Sodium (Protonix -) 40 mg PO DAILY [facility] Last Admin: 02/24/17 09:40 Dose: 40 mg - Objective Vital Signs: Vital Signs Temperature 99.5 F 02/24/17 10:00 Pulse Rate 92 H 02/24/17 10:00 Respiratory Rate 20 02/24/17 10:00 Blood Pressure 140/79 02/24/17 10:00 O2 Sat by Pulse Oximetry (%) 98 02/23/17 21:00 Constitutional: Yes: No Distress, Calm, Obese Cardiovascular: Yes: Regular Rate and Rhythm Respiratory: Yes: Regular, CTA Bilaterally Gastrointestinal: Yes: Normal Bowel Sounds, Soft, Other (wound vac) Musculoskeletal: Yes: WNL Extremities: Yes: WNL Wound/Incision: Yes: Dressing Dry and Intact Neurological: Yes: Alert, Oriented Labs: CBC, BMP 02/23/17 06:30 02/23/17 06:30 INR, PTT INR 1.29 (0.82-1.09) H 02/11/17 18:52 Assessment/Plan Problem List - Problems (1) Acute abdomen Code(s): R10.0 - ACUTE ABDOMEN (2) Diabetes mellitus Code(s): E11.9 - TYPE 2 DIABETES MELLITUS WITHOUT COMPLICATIONS (3) Obesity Code(s): E66.9 - OBESITY, UNSPECIFIED Qualifiers: Obesity type: due to excess calories (4) Perforation bowel Code(s): K63.1 - PERFORATION OF INTESTINE (NONTRAUMATIC) (5) Septic shock Code(s): A41.9 - SEPSIS, UNSPECIFIED ORGANISM R65.21 - SEVERE SEPSIS WITH SEPTIC SHOCK all the factors seen plan continue oral abx continue current mgmt
[2017-02-24] MEDS: IBUPROFEN 400 MG TABLET (FP) PO PRN ×2 (14:26→21:08)
--- NOTE | 2017-02-24 16:08 | PN ---
Progress Note, Physician Chief Complaint: Patient has no complaints. Temperatore 100.3 WBC still 70991. Colostomy functioning and patient is tolerating diet. Wound with wound vac. Continue antibiotics. - Current Medication List Current Medications: Active Medications Acetaminophen (Tylenol -) 650 mg PO Q6H PRN PRN Reason: FEVER OR PAIN Amoxicillin/Clavulanate Potassium (Augmentin - 875mg Tablet) 1 tab PO BID@0800, 1730 [facility] Last Admin: 02/24/17 09:40 Dose: 1 tab Enalapril Maleate (Vasotec -) 20 mg PO DAILY [facility] Last Admin: 02/24/17 09:40 Dose: 20 mg Ibuprofen (Motrin -) 200 mg PO Q6H PRN PRN Reason: PAIN Last Admin: 02/24/17 14:26 Dose: 200 mg Metoprolol Succinate (Toprol Xl -) 25 mg PO DAILY [facility] Last Admin: 02/24/17 09:40 Dose: 25 mg Ondansetron HCl (Zofran Injection) 4 mg IVPUSH Q6H PRN PRN Reason: NAUSEA AND/OR VOMITING Pantoprazole Sodium (Protonix -) 40 mg PO DAILY [facility] Last Admin: 02/24/17 09:40 Dose: 40 mg - Objective Vital Signs: Vital Signs Temperature 100.6 F H 02/24/17 15:13 Pulse Rate 81 02/24/17 15:13 Respiratory Rate 18 02/24/17 15:13 Blood Pressure 124/71 02/24/17 15:13 O2 Sat by Pulse Oximetry (%) 98 02/23/17 21:00 Labs: CBC, BMP 02/23/17 06:30 02/23/17 06:30 INR, PTT INR 1.29 (0.82-1.09) H 02/11/17 18:52 Problem List - Problems (1) Perforation bowel Code(s): K63.1 - PERFORATION OF INTESTINE (NONTRAUMATIC) (2) Acute abdomen Code(s): R10.0 - ACUTE ABDOMEN (3) Obesity Code(s): E66.9 - OBESITY, UNSPECIFIED Qualifiers: (4) Diabetes mellitus Code(s): E11.9 - TYPE 2 DIABETES MELLITUS WITHOUT COMPLICATIONS Assessment/Plan Surgery; Patient is afebrile, Wound with wound VAC, Dressing changed. Wound is pink, and granulating well Colostomy is functioning. Patient also had bowel movement rectally. Madelaine drain , under the colstomy removed. Cultures from abdominal aspirate, [place] [address], still. drain , not draining any fluid or pus, removed. Ambulate. Discharge planning.
--- NOTE | 2017-02-24 23:39 | PN ---
Progress Note, Physician History of Present Illness: No new complaints - Current Medication List Current Medications: Active Medications Acetaminophen (Tylenol -) 650 mg PO Q6H PRN PRN Reason: FEVER OR PAIN Amoxicillin/Clavulanate Potassium (Augmentin - 875mg Tablet) 1 tab PO BID@0800, 1730 [facility] Last Admin: 02/24/17 19:05 Dose: 1 tab Enalapril Maleate (Vasotec -) 20 mg PO DAILY [facility] Last Admin: 02/24/17 09:40 Dose: 20 mg Ibuprofen (Motrin -) 200 mg PO Q6H PRN PRN Reason: PAIN Last Admin: 02/24/17 21:08 Dose: 200 mg Metoprolol Succinate (Toprol Xl -) 25 mg PO DAILY [facility] Last Admin: 02/24/17 09:40 Dose: 25 mg Ondansetron HCl (Zofran Injection) 4 mg IVPUSH Q6H PRN PRN Reason: NAUSEA AND/OR VOMITING Pantoprazole Sodium (Protonix -) 40 mg PO DAILY [facility] Last Admin: 02/24/17 09:40 Dose: 40 mg - Objective Vital Signs: Vital Signs Temperature 99.5 F 02/24/17 17:04 Pulse Rate 77 02/24/17 17:04 Respiratory Rate 20 02/24/17 17:04 Blood Pressure 148/77 02/24/17 17:04 O2 Sat by Pulse Oximetry (%) 95 02/24/17 16:51 Constitutional: Yes: Well Nourished Neck: Yes: WNL, Supple Cardiovascular: Yes: WNL, Regular Rate and Rhythm Respiratory: Yes: WNL, Regular, CTA Bilaterally Gastrointestinal: Yes: Other ((+) ileostomy/wound vac) Labs: CBC, BMP 02/23/17 06:30 02/23/17 06:30 INR, PTT INR 1.29 (0.82-1.09) H 02/11/17 18:52 Problem List - Problems (1) Perforation bowel Assessment/Plan: S/P laparotmy w/ sigmoid resection/transverse loop colectomy and lysis of adhesions. Intraabdominal absecess Code(s): K63.1 - PERFORATION OF INTESTINE (NONTRAUMATIC) (2) Sepsis Assessment/Plan: Due to bowel perforation/diverticulitis Wound culture (+) for E.Coli/enterococcus/strept viridans Code(s): A41.9 - SEPSIS, UNSPECIFIED ORGANISM (3) Diabetes mellitus Code(s): E11.9 - TYPE 2 DIABETES MELLITUS WITHOUT COMPLICATIONS (4) Hypertension Code(s): I10 - ESSENTIAL (PRIMARY) HYPERTENSION (5) Obesity Code(s): E66.9 - OBESITY, UNSPECIFIED Qualifiers: Obesity type: due to excess calories
[2017-02-25] MEDS ORDERED: PT OWN MED DRAWER 7, Y5N ONE (06:45)
[2017-02-25] MEDS: AMOX TR/POT CLAV 875MG/125MG TABLETS (FP) PO SCH ×2 (08:27→18:17)
[2017-02-25] MEDS: PANTOPRAZOLE 40 MG TABLET (FP) PO SCH (09:11)
[2017-02-25] MEDS: ENALAPRIL MALEATE 10 MG TABLET (FP) PO SCH (09:11)
[2017-02-25] MEDS: METOPROLOL SUCCINATE 25 MG TAB.SR.24H (FP) PO SCH (09:11)
[2017-02-25] MEDS: IBUPROFEN 400 MG TABLET (FP) PO PRN ×2 (09:32→21:50)
[2017-02-25] MEDS: ACETAMINOPHEN 325 MG TABLET (FP) PO PRN ×2 (09:33→18:17)
--- NOTE | 2017-02-25 10:12 | PN ---
Progress Note, Physician - Current Medication List Current Medications: Active Medications Acetaminophen (Tylenol -) 650 mg PO Q6H PRN PRN Reason: FEVER OR PAIN Last Admin: 02/25/17 09:33 Dose: 650 mg Amoxicillin/Clavulanate Potassium (Augmentin - 875mg Tablet) 1 tab PO BID@0800, 1730 [facility] Last Admin: 02/25/17 08:27 Dose: 1 tab Enalapril Maleate (Vasotec -) 20 mg PO DAILY [facility] Last Admin: 02/25/17 09:11 Dose: 20 mg Ibuprofen (Motrin -) 200 mg PO Q6H PRN PRN Reason: PAIN Last Admin: 02/25/17 09:32 Dose: 200 mg Metoprolol Succinate (Toprol Xl -) 25 mg PO DAILY [facility] Last Admin: 02/25/17 09:11 Dose: 25 mg Ondansetron HCl (Zofran Injection) 4 mg IVPUSH Q6H PRN PRN Reason: NAUSEA AND/OR VOMITING Pantoprazole Sodium (Protonix -) 40 mg PO DAILY [facility] Last Admin: 02/25/17 09:11 Dose: 40 mg - Objective Vital Signs: Vital Signs Temperature 99.8 F H 02/25/17 08:16 Pulse Rate 77 02/25/17 08:16 Respiratory Rate 20 02/25/17 08:16 Blood Pressure 145/77 02/25/17 08:16 O2 Sat by Pulse Oximetry (%) 96 02/25/17 09:16 Labs: CBC, BMP 02/23/17 06:30 02/23/17 06:30 INR, PTT INR 1.29 (0.82-1.09) H 02/11/17 18:52 Problem List - Problems (1) Perforation bowel Code(s): K63.1 - PERFORATION OF INTESTINE (NONTRAUMATIC) (2) Acute abdomen Code(s): R10.0 - ACUTE ABDOMEN (3) Obesity Code(s): E66.9 - OBESITY, UNSPECIFIED Qualifiers: (4) Diabetes mellitus Code(s): E11.9 - TYPE 2 DIABETES MELLITUS WITHOUT COMPLICATIONS Assessment/Plan Afebrile today. WBC unchanged , 10056. Wound vac changed yesterday and on Wednesday. Continue antibiotics. Physical therapy, discharge planning when WBC is normal, afebrile, and wound improves.
--- NOTE | 2017-02-25 14:48 | PN ---
Progress Note, Physician History of Present Illness: doing well no new issues - Current Medication List Current Medications: Active Medications Acetaminophen (Tylenol -) 650 mg PO Q6H PRN PRN Reason: FEVER OR PAIN Last Admin: 02/25/17 09:33 Dose: 650 mg Amoxicillin/Clavulanate Potassium (Augmentin - 875mg Tablet) 1 tab PO BID@0800, 1730 [facility] Last Admin: 02/25/17 08:27 Dose: 1 tab Enalapril Maleate (Vasotec -) 20 mg PO DAILY [facility] Last Admin: 02/25/17 09:11 Dose: 20 mg Ibuprofen (Motrin -) 200 mg PO Q6H PRN PRN Reason: PAIN Last Admin: 02/25/17 09:32 Dose: 200 mg Metoprolol Succinate (Toprol Xl -) 25 mg PO DAILY [facility] Last Admin: 02/25/17 09:11 Dose: 25 mg Ondansetron HCl (Zofran Injection) 4 mg IVPUSH Q6H PRN PRN Reason: NAUSEA AND/OR VOMITING Pantoprazole Sodium (Protonix -) 40 mg PO DAILY [facility] Last Admin: 02/25/17 09:11 Dose: 40 mg - Objective Vital Signs: Vital Signs Temperature 99.8 F H 02/25/17 08:16 Pulse Rate 77 02/25/17 08:16 Respiratory Rate 20 02/25/17 08:16 Blood Pressure 145/77 02/25/17 08:16 O2 Sat by Pulse Oximetry (%) 96 02/25/17 09:16 Constitutional: Yes: No Distress, Calm Cardiovascular: Yes: Regular Rate and Rhythm Respiratory: Yes: Regular, CTA Bilaterally Gastrointestinal: Yes: Normal Bowel Sounds, Soft, Other (colostomy working well) Musculoskeletal: Yes: WNL Extremities: Yes: WNL Wound/Incision: Yes: Other (wound vac present) Neurological: Yes: Alert, Oriented Psychiatric: Yes: Alert, Oriented Labs: CBC, BMP 02/23/17 06:30 02/23/17 06:30 INR, PTT INR 1.29 (0.82-1.09) H 02/11/17 18:52 Assessment/Plan Problem List - Problems (1) Acute abdomen Code(s): R10.0 - ACUTE ABDOMEN (2) Diabetes mellitus Code(s): E11.9 - TYPE 2 DIABETES MELLITUS WITHOUT COMPLICATIONS (3) Obesity Code(s): E66.9 - OBESITY, UNSPECIFIED Qualifiers: Obesity type: due to excess calories (4) Perforation bowel Code(s): K63.1 - PERFORATION OF INTESTINE (NONTRAUMATIC) (5) Septic shock Code(s): A41.9 - SEPSIS, UNSPECIFIED ORGANISM R65.21 - SEVERE SEPSIS WITH SEPTIC SHOCK had one spike stable since then plan continue oral abx continue current mgmt
--- NOTE | 2017-02-25 21:39 | PN ---
Progress Note, Physician History of Present Illness: No new complaints - Current Medication List Current Medications: Active Medications Acetaminophen (Tylenol -) 650 mg PO Q6H PRN PRN Reason: FEVER OR PAIN Last Admin: 02/25/17 18:17 Dose: 650 mg Amoxicillin/Clavulanate Potassium (Augmentin - 875mg Tablet) 1 tab PO BID@0800, 1730 [facility] Last Admin: 02/25/17 18:17 Dose: 1 tab Enalapril Maleate (Vasotec -) 20 mg PO DAILY [facility] Last Admin: 02/25/17 09:11 Dose: 20 mg Ibuprofen (Motrin -) 200 mg PO Q6H PRN PRN Reason: PAIN Last Admin: 02/25/17 09:32 Dose: 200 mg Metoprolol Succinate (Toprol Xl -) 25 mg PO DAILY [facility] Last Admin: 02/25/17 09:11 Dose: 25 mg Ondansetron HCl (Zofran Injection) 4 mg IVPUSH Q6H PRN PRN Reason: NAUSEA AND/OR VOMITING Pantoprazole Sodium (Protonix -) 40 mg PO DAILY [facility] Last Admin: 02/25/17 09:11 Dose: 40 mg - Objective Vital Signs: Vital Signs Temperature 99.5 F 02/25/17 17:08 Pulse Rate 88 02/25/17 17:08 Respiratory Rate 20 02/25/17 17:08 Blood Pressure 138/80 02/25/17 17:08 O2 Sat by Pulse Oximetry (%) 96 02/25/17 09:16 Constitutional: Yes: Well Nourished Neck: Yes: WNL, Supple Cardiovascular: Yes: WNL, Regular Rate and Rhythm Respiratory: Yes: WNL, Regular, CTA Bilaterally Gastrointestinal: Yes: Other ((+) ileostomy/wound vac) Labs: CBC, BMP 02/23/17 06:30 02/23/17 06:30 INR, PTT INR 1.29 (0.82-1.09) H 02/11/17 18:52 Problem List - Problems (1) Perforation bowel Assessment/Plan: S/P laparotmy w/ sigmoid resection/transverse loop colectomy and lysis of adhesions. Intraabdominal absecess Decreased drainage from wound vac WBC decreasing Cont IV antibxs Code(s): K63.1 - PERFORATION OF INTESTINE (NONTRAUMATIC) (2) Sepsis Assessment/Plan: Due to bowel perforation/diverticulitis Cont IV antibxs Wound culture (+) for E.Coli/enterococcus/strept viridans Code(s): A41.9 - SEPSIS, UNSPECIFIED ORGANISM (3) Diabetes mellitus Assessment/Plan: Cont sliding scale w/ novolog Code(s): E11.9 - TYPE 2 DIABETES MELLITUS WITHOUT COMPLICATIONS (4) Hypertension Code(s): I10 - ESSENTIAL (PRIMARY) HYPERTENSION (5) Obesity Code(s): E66.9 - OBESITY, UNSPECIFIED Qualifiers: Obesity type: due to excess calories
[2017-02-26] MEDS: ACETAMINOPHEN 325 MG TABLET (FP) PO PRN ×4 (00:34→20:48)
[2017-02-26 08:23] LABS: BASOPHIL 0.4 % (0-2.0); EOSINOPHIL 0.4 % (0-4.5); MCH 32.3 pg (25.7-33.7); MCHC 33.1 g/dl (32.0-36.0); MEAN CELL VOLUME 97.6 fl (80-96); NEUTROPHILS 84.1 % (42.8-82.8); PLATELET COUNT 727 K/MM3 (134-434); RDW 14.8 % (11.6-15.6); WHITE BLOOD COUNT 13.7 K/mm3 (4.0-10.0)
[2017-02-26] MEDS: AMOX TR/POT CLAV 875MG/125MG TABLETS (FP) PO SCH ×2 (08:31→18:29)
[2017-02-26 09:01] LABS: ALK PHOS 61 U/L (45-117); ANION GAP 8 (8-16); BILIRUBIN,TOTAL 0.5 mg/dL (0.2-1.0); CALCIUM 8.8 mg/dL (8.5-10.1); CO2 29 mmol/L (21-32); CREATININE 0.5 mg/dL (0.55-1.02); GLUCOSE,RANDOM 70 mg/dL (74-106); SGOT/AST 9 U/L (15-37); SGPT/ALT 12 U/L (12-78); TOT PROT 6.5 g/dl (6.4-8.2)
[2017-02-26] MEDS: ENALAPRIL MALEATE 10 MG TABLET (FP) PO SCH (09:29)
[2017-02-26] MEDS: PANTOPRAZOLE 40 MG TABLET (FP) PO SCH (09:29)
[2017-02-26] MEDS: METOPROLOL SUCCINATE 25 MG TAB.SR.24H (FP) PO SCH (09:29)
[2017-02-26] MEDS: IBUPROFEN 400 MG TABLET (FP) PO PRN ×2 (12:59→20:49)
--- NOTE | 2017-02-26 14:05 | PN ---
Progress Note, Physician History of Present Illness: says she is not feeling well says she is having abd pain - Current Medication List Current Medications: Active Medications Acetaminophen (Tylenol -) 650 mg PO Q6H PRN PRN Reason: FEVER OR PAIN Last Admin: 02/26/17 12:59 Dose: 650 mg Amoxicillin/Clavulanate Potassium (Augmentin - 875mg Tablet) 1 tab PO BID@0800, 1730 [facility] Last Admin: 02/26/17 08:31 Dose: 1 tab Enalapril Maleate (Vasotec -) 20 mg PO DAILY [facility] Last Admin: 02/26/17 09:29 Dose: 20 mg Ibuprofen (Motrin -) 200 mg PO Q6H PRN PRN Reason: PAIN Last Admin: 02/26/17 12:59 Dose: 200 mg Metoprolol Succinate (Toprol Xl -) 25 mg PO DAILY [facility] Last Admin: 02/26/17 09:29 Dose: 25 mg Ondansetron HCl (Zofran Injection) 4 mg IVPUSH Q6H PRN PRN Reason: NAUSEA AND/OR VOMITING Pantoprazole Sodium (Protonix -) 40 mg PO DAILY [facility] Last Admin: 02/26/17 09:29 Dose: 40 mg - Objective Vital Signs: Vital Signs Temperature 97.8 F 02/26/17 09:35 Pulse Rate 78 02/26/17 09:35 Respiratory Rate 20 02/26/17 09:35 Blood Pressure 133/72 02/26/17 09:35 O2 Sat by Pulse Oximetry (%) 97 02/26/17 09:00 Constitutional: Yes: Calm, Mild Distress Cardiovascular: Yes: Regular Rate and Rhythm Respiratory: Yes: Regular, CTA Bilaterally Gastrointestinal: Yes: Tenderness, Other Musculoskeletal: Yes: WNL Extremities: Yes: WNL Wound/Incision: Yes: Other (wound vac in place) Neurological: Yes: Alert, Oriented Psychiatric: Yes: Alert Labs: CBC, BMP 02/26/17 07:51 02/26/17 07:51 INR, PTT INR 1.29 (0.82-1.09) H 02/11/17 18:52 Assessment/Plan Problem List - Problems (1) Acute abdomen Code(s): R10.0 - ACUTE ABDOMEN (2) Diabetes mellitus Code(s): E11.9 - TYPE 2 DIABETES MELLITUS WITHOUT COMPLICATIONS (3) Obesity Code(s): E66.9 - OBESITY, UNSPECIFIED Qualifiers: Obesity type: due to excess calories (4) Perforation bowel Code(s): K63.1 - PERFORATION OF INTESTINE (NONTRAUMATIC) (5) Septic shock Code(s): A41.9 - SEPSIS, UNSPECIFIED ORGANISM R65.21 - SEVERE SEPSIS WITH SEPTIC SHOCK had one spike stable since then plan continue oral abx continue current mgmt consider holding feeds until patient starts feeling better close watch
--- NOTE | 2017-02-26 21:08 | PN ---
Progress Note, Physician History of Present Illness: No new complaints Pt spike temp - Current Medication List Current Medications: Active Medications Acetaminophen (Tylenol -) 650 mg PO Q6H PRN PRN Reason: FEVER OR PAIN Last Admin: 02/26/17 20:48 Dose: 650 mg Amoxicillin/Clavulanate Potassium (Augmentin - 875mg Tablet) 1 tab PO BID@0800, 1730 [facility] Last Admin: 02/26/17 18:29 Dose: 1 tab Enalapril Maleate (Vasotec -) 20 mg PO DAILY [facility] Last Admin: 02/26/17 09:29 Dose: 20 mg Ibuprofen (Motrin -) 200 mg PO Q6H PRN PRN Reason: PAIN Last Admin: 02/26/17 20:49 Dose: 200 mg Metoprolol Succinate (Toprol Xl -) 25 mg PO DAILY [facility] Last Admin: 02/26/17 09:29 Dose: 25 mg Ondansetron HCl (Zofran Injection) 4 mg IVPUSH Q6H PRN PRN Reason: NAUSEA AND/OR VOMITING Pantoprazole Sodium (Protonix -) 40 mg PO DAILY [facility] Last Admin: 02/26/17 09:29 Dose: 40 mg - Objective Vital Signs: Vital Signs Temperature 99.3 F 02/26/17 19:09 Pulse Rate 71 02/26/17 19:09 Respiratory Rate 20 02/26/17 19:09 Blood Pressure 148/81 02/26/17 19:09 O2 Sat by Pulse Oximetry (%) 97 02/26/17 09:00 Constitutional: Yes: Well Nourished Neck: Yes: WNL, Supple Cardiovascular: Yes: WNL, Regular Rate and Rhythm Respiratory: Yes: WNL, Regular, CTA Bilaterally Gastrointestinal: Yes: Other ((+) ileostomy/wound vac) Labs: CBC, BMP 02/26/17 07:51 02/26/17 07:51 INR, PTT INR 1.29 (0.82-1.09) H 02/11/17 18:52 Problem List - Problems (1) Perforation bowel Assessment/Plan: S/P laparotmy w/ sigmoid resection/transverse loop colectomy and lysis of adhesions. Intraabdominal absecess Decreased drainage from wound vac WBC decreasing Cont IV antibxs Code(s): K63.1 - PERFORATION OF INTESTINE (NONTRAUMATIC) (2) Sepsis Code(s): A41.9 - SEPSIS, UNSPECIFIED ORGANISM (3) Diabetes mellitus Assessment/Plan: Cont sliding scale w/ novolog Code(s): E11.9 - TYPE 2 DIABETES MELLITUS WITHOUT COMPLICATIONS (4) Hypertension Code(s): I10 - ESSENTIAL (PRIMARY) HYPERTENSION (5) Obesity Code(s): E66.9 - OBESITY, UNSPECIFIED Qualifiers: Obesity type: due to excess calories
[2017-02-27 07:29] LABS: BASOPHIL 0.4 % (0-2.0); EOSINOPHIL 0.4 % (0-4.5); MCH 32.7 pg (25.7-33.7); MCHC 33.8 g/dl (32.0-36.0); MEAN CELL VOLUME 96.8 fl (80-96); MEAN PLT VOLUME 7.8 fl (7.5-11.1); NEUTROPHILS 83.4 % (42.8-82.8); PLATELET COUNT 746 K/MM3 (134-434); RDW 15.2 % (11.6-15.6); WHITE BLOOD COUNT 11.8 K/mm3 (4.0-10.0)
[2017-02-27 07:54] LABS: ALBUMIN 2.1 g/dl (3.4-5.0); ANION GAP 8 (8-16); CALCIUM 8.7 mg/dL (8.5-10.1); CO2 29 mmol/L (21-32); CREATININE 0.4 mg/dL (0.55-1.02); GLUCOSE,RANDOM 75 mg/dL (74-106); SGOT/AST 9 U/L (15-37); SGPT/ALT 9 U/L (12-78)
[2017-02-27 07:56] LABS: ALK PHOS 67 U/L (45-117); BILIRUBIN,TOTAL 0.5 mg/dL (0.2-1.0); TOT PROT 6.6 g/dl (6.4-8.2)
[2017-02-27] MEDS: AMOX TR/POT CLAV 875MG/125MG TABLETS (FP) PO SCH ×2 (08:22→16:42)
[2017-02-27] MEDS: METOPROLOL SUCCINATE 25 MG TAB.SR.24H (FP) PO SCH (09:49)
[2017-02-27] MEDS: PANTOPRAZOLE 40 MG TABLET (FP) PO SCH (09:49)
[2017-02-27] MEDS: ENALAPRIL MALEATE 10 MG TABLET (FP) PO SCH (09:49)
[2017-02-27] MEDS: IBUPROFEN 400 MG TABLET (FP) PO PRN ×2 (12:36→22:13)
[2017-02-27] MEDS: ACETAMINOPHEN 325 MG TABLET (FP) PO PRN (12:37)
--- NOTE | 2017-02-27 16:51 | PN ---
Progress Note, Physician History of Present Illness: No new complaints Tmax 99 - Current Medication List Current Medications: Active Medications Acetaminophen (Tylenol -) 650 mg PO Q6H PRN PRN Reason: FEVER OR PAIN Last Admin: 02/27/17 12:37 Dose: 650 mg Amoxicillin/Clavulanate Potassium (Augmentin - 875mg Tablet) 1 tab PO BID@0800, 1730 [facility] Last Admin: 02/27/17 16:42 Dose: 1 tab Enalapril Maleate (Vasotec -) 20 mg PO DAILY [facility] Last Admin: 02/27/17 09:49 Dose: 20 mg Ibuprofen (Motrin -) 200 mg PO Q6H PRN PRN Reason: PAIN Last Admin: 02/27/17 12:36 Dose: 200 mg Metoprolol Succinate (Toprol Xl -) 25 mg PO DAILY [facility] Last Admin: 02/27/17 09:49 Dose: 25 mg Ondansetron HCl (Zofran Injection) 4 mg IVPUSH Q6H PRN PRN Reason: NAUSEA AND/OR VOMITING Pantoprazole Sodium (Protonix -) 40 mg PO DAILY [facility] Last Admin: 02/27/17 09:49 Dose: 40 mg - Objective Vital Signs: Vital Signs Temperature 99.9 F H 02/27/17 15:38 Pulse Rate 86 02/27/17 15:38 Respiratory Rate 20 02/27/17 15:38 Blood Pressure 139/89 02/27/17 15:38 O2 Sat by Pulse Oximetry (%) 97 02/26/17 21:00 Constitutional: Yes: Well Nourished Neck: Yes: WNL, Supple Cardiovascular: Yes: WNL, Regular Rate and Rhythm Respiratory: Yes: WNL, Regular, CTA Bilaterally Gastrointestinal: Yes: Other ((+) ileostomy (+) drainage to wound vac) Labs: CBC, BMP 02/27/17 06:30 02/27/17 06:30 INR, PTT INR 1.29 (0.82-1.09) H 02/11/17 18:52 Problem List - Problems (1) Perforation bowel Assessment/Plan: S/P laparotmy w/ sigmoid resection/transverse loop colectomy and lysis of adhesions. Intraabdominal absecess Decreased drainage from wound vac WBC decreasing Cont IV antibxs Code(s): K63.1 - PERFORATION OF INTESTINE (NONTRAUMATIC) (2) Sepsis Assessment/Plan: Due to bowel perforation/diverticulitis Cont IV antibxs Wound culture (+) for E.Coli/enterococcus/strept viridans Code(s): A41.9 - SEPSIS, UNSPECIFIED ORGANISM (3) Diabetes mellitus Assessment/Plan: Cont sliding scale w/ novolog Code(s): E11.9 - TYPE 2 DIABETES MELLITUS WITHOUT COMPLICATIONS (4) Hypertension Assessment/Plan: BP stable Cont metoprolol Code(s): I10 - ESSENTIAL (PRIMARY) HYPERTENSION (5) Obesity Code(s): E66.9 - OBESITY, UNSPECIFIED Qualifiers: Obesity type: due to excess calories
--- NOTE | 2017-02-27 17:17 | PN ---
Progress Note, Physician History of Present Illness: Pt states she feels much better than yesterday. Had pain in lower abd earlier but controlled with pain meds. Otherwise no specific complaints. Ambulating without difficulty. - Current Medication List Current Medications: Active Medications Acetaminophen (Tylenol -) 650 mg PO Q6H PRN PRN Reason: FEVER OR PAIN Last Admin: 02/27/17 12:37 Dose: 650 mg Amoxicillin/Clavulanate Potassium (Augmentin - 875mg Tablet) 1 tab PO BID@0800, 1730 [facility] Last Admin: 02/27/17 16:42 Dose: 1 tab Enalapril Maleate (Vasotec -) 20 mg PO DAILY [facility] Last Admin: 02/27/17 09:49 Dose: 20 mg Ibuprofen (Motrin -) 200 mg PO Q6H PRN PRN Reason: PAIN Last Admin: 02/27/17 12:36 Dose: 200 mg Metoprolol Succinate (Toprol Xl -) 25 mg PO DAILY [facility] Last Admin: 02/27/17 09:49 Dose: 25 mg Ondansetron HCl (Zofran Injection) 4 mg IVPUSH Q6H PRN PRN Reason: NAUSEA AND/OR VOMITING Pantoprazole Sodium (Protonix -) 40 mg PO DAILY [facility] Last Admin: 02/27/17 09:49 Dose: 40 mg - Objective Vital Signs: Vital Signs Temperature 99.9 F H 02/27/17 17:12 Pulse Rate 72 02/27/17 17:12 Respiratory Rate 20 02/27/17 17:12 Blood Pressure 160/81 02/27/17 17:12 O2 Sat by Pulse Oximetry (%) 97 02/26/17 21:00 Constitutional: Yes: No Distress HENT: Yes: WNL Neck: Yes: Supple Cardiovascular: Yes: Regular Rate and Rhythm Respiratory: Yes: CTA Bilaterally Gastrointestinal: Yes: Other (colostomy functional, wound vac in place, tenderness to deep palpation in lower abdomen) Genitourinary: Yes: WNL Musculoskeletal: Yes: WNL Extremities: Yes: WNL Wound/Incision: Yes: Clean/Dry Neurological: Yes: Alert Labs: CBC, BMP 02/27/17 06:30 02/27/17 06:30 INR, PTT INR 1.29 (0.82-1.09) H 02/11/17 18:52 Problem List - Problems (1) Diabetes mellitus Code(s): E11.9 - TYPE 2 DIABETES MELLITUS WITHOUT COMPLICATIONS (2) Perforation bowel Code(s): K63.1 - PERFORATION OF INTESTINE (NONTRAUMATIC) (3) Septic shock Code(s): A41.9 - SEPSIS, UNSPECIFIED ORGANISM R65.21 - SEVERE SEPSIS WITH SEPTIC SHOCK Assessment/Plan Pt currently stable, Tmax 99.9F - wbc trending down cont. po antibiotics for now will reassess tomorrow continue monitor
[2017-02-28] MEDS: AMOX TR/POT CLAV 875MG/125MG TABLETS (FP) PO SCH ×2 (08:20→17:33)
[2017-02-28] MEDS: ENALAPRIL MALEATE 10 MG TABLET (FP) PO SCH (09:12)
[2017-02-28] MEDS: PANTOPRAZOLE 40 MG TABLET (FP) PO SCH (09:12)
[2017-02-28] MEDS: METOPROLOL SUCCINATE 25 MG TAB.SR.24H (FP) PO SCH (09:12)
[2017-02-28] MEDS: ACETAMINOPHEN 325 MG TABLET (FP) PO PRN ×2 (11:07→20:30)
[2017-02-28] MEDS: IBUPROFEN 400 MG TABLET (FP) PO PRN (11:07)
--- NOTE | 2017-02-28 12:30 | PN ---
Progress Note, Physician History of Present Illness: Pt without new complaints. Has lower abd pain just below wound vac site. Denies fever/chills. No rash/pruritis on current po antibiotics. - Current Medication List Current Medications: Active Medications Acetaminophen (Tylenol -) 650 mg PO Q6H PRN PRN Reason: FEVER OR PAIN Last Admin: 02/28/17 11:07 Dose: 650 mg Amoxicillin/Clavulanate Potassium (Augmentin - 875mg Tablet) 1 tab PO BID@0800, 1730 [facility] Last Admin: 02/28/17 08:20 Dose: 1 tab Enalapril Maleate (Vasotec -) 20 mg PO DAILY [facility] Last Admin: 02/28/17 09:12 Dose: 20 mg Ibuprofen (Motrin -) 200 mg PO Q6H PRN PRN Reason: PAIN Last Admin: 02/28/17 11:07 Dose: 200 mg Metoprolol Succinate (Toprol Xl -) 25 mg PO DAILY [facility] Last Admin: 02/28/17 09:12 Dose: 25 mg Ondansetron HCl (Zofran Injection) 4 mg IVPUSH Q6H PRN PRN Reason: NAUSEA AND/OR VOMITING Pantoprazole Sodium (Protonix -) 40 mg PO DAILY [facility] Last Admin: 02/28/17 09:12 Dose: 40 mg - Objective Vital Signs: Vital Signs Temperature 99.3 F 02/28/17 06:05 Pulse Rate 78 02/28/17 06:05 Respiratory Rate 18 02/28/17 06:05 Blood Pressure 140/81 02/28/17 06:05 O2 Sat by Pulse Oximetry (%) 98 02/27/17 21:00 Constitutional: Yes: No Distress, Calm Eyes: Yes: WNL HENT: Yes: WNL Neck: Yes: WNL Cardiovascular: Yes: Regular Rate and Rhythm Respiratory: Yes: CTA Bilaterally Gastrointestinal: Yes: Normal Bowel Sounds, Soft, Other (colostomy functional, wound vac in place, pain below wound vac, no n/v.) Genitourinary: Yes: WNL Musculoskeletal: Yes: WNL Extremities: Yes: WNL Wound/Incision: Yes: Clean/Dry Neurological: Yes: Alert, Oriented ...Motor Strength: WNL Psychiatric: Yes: Alert, Oriented Labs: CBC, BMP 02/27/17 06:30 02/27/17 06:30 INR, PTT INR 1.29 (0.82-1.09) H 02/11/17 18:52 Problem List - Problems (1) Diabetes mellitus Code(s): E11.9 - TYPE 2 DIABETES MELLITUS WITHOUT COMPLICATIONS (2) Perforation bowel Code(s): K63.1 - PERFORATION OF INTESTINE (NONTRAUMATIC) (3) Septic shock Code(s): A41.9 - SEPSIS, UNSPECIFIED ORGANISM R65.21 - SEVERE SEPSIS WITH SEPTIC SHOCK Assessment/Plan Pt with mild temp elevation, reports overall improvement - continue po antibiotics and monitor - continue wound care
--- NOTE | 2017-02-28 14:07 | PN ---
Progress Note, Physician - Current Medication List Current Medications: Active Medications Acetaminophen (Tylenol -) 650 mg PO Q6H PRN PRN Reason: FEVER OR PAIN Last Admin: 02/28/17 11:07 Dose: 650 mg Amoxicillin/Clavulanate Potassium (Augmentin - 875mg Tablet) 1 tab PO BID@0800, 1730 [facility] Last Admin: 02/28/17 08:20 Dose: 1 tab Enalapril Maleate (Vasotec -) 20 mg PO DAILY [facility] Last Admin: 02/28/17 09:12 Dose: 20 mg Ibuprofen (Motrin -) 200 mg PO Q6H PRN PRN Reason: PAIN Last Admin: 02/28/17 11:07 Dose: 200 mg Metoprolol Succinate (Toprol Xl -) 25 mg PO DAILY [facility] Last Admin: 02/28/17 09:12 Dose: 25 mg Ondansetron HCl (Zofran Injection) 4 mg IVPUSH Q6H PRN PRN Reason: NAUSEA AND/OR VOMITING Pantoprazole Sodium (Protonix -) 40 mg PO DAILY [facility] Last Admin: 02/28/17 09:12 Dose: 40 mg - Objective Vital Signs: Vital Signs Temperature 99.4 F 02/28/17 09:00 Pulse Rate 86 02/28/17 09:00 Respiratory Rate 18 02/28/17 09:00 Blood Pressure 135/76 02/28/17 09:00 O2 Sat by Pulse Oximetry (%) 98 02/28/17 09:00 HENT: Yes: Pharyngeal Erythema Labs: CBC, BMP 02/27/17 06:30 02/27/17 06:30 INR, PTT INR 1.29 (0.82-1.09) H 02/11/17 18:52 Problem List - Problems (1) Perforation bowel Code(s): K63.1 - PERFORATION OF INTESTINE (NONTRAUMATIC) (2) Acute abdomen Code(s): R10.0 - ACUTE ABDOMEN (3) Obesity Code(s): E66.9 - OBESITY, UNSPECIFIED Qualifiers: (4) Diabetes mellitus Code(s): E11.9 - TYPE 2 DIABETES MELLITUS WITHOUT COMPLICATIONS Assessment/Plan Surgery: Patient c/o vague abdominal pain. Abdomen is soft , not distended, Colostomy is functioning well. Tolerating oral feeding. WBC is improving. Vac dressing in place Discharge planning. Patient is informed.
--- NOTE | 2017-02-28 21:04 | PN ---
Progress Note, Physician - Current Medication List Current Medications: Active Medications Acetaminophen (Tylenol -) 650 mg PO Q6H PRN PRN Reason: FEVER OR PAIN Last Admin: 02/28/17 20:30 Dose: 650 mg Amoxicillin/Clavulanate Potassium (Augmentin - 875mg Tablet) 1 tab PO BID@0800, 1730 [facility] Last Admin: 02/28/17 17:33 Dose: 1 tab Enalapril Maleate (Vasotec -) 20 mg PO DAILY [facility] Last Admin: 02/28/17 09:12 Dose: 20 mg Ibuprofen (Motrin -) 200 mg PO Q6H PRN PRN Reason: PAIN Last Admin: 02/28/17 11:07 Dose: 200 mg Metoprolol Succinate (Toprol Xl -) 25 mg PO DAILY [facility] Last Admin: 02/28/17 09:12 Dose: 25 mg Ondansetron HCl (Zofran Injection) 4 mg IVPUSH Q6H PRN PRN Reason: NAUSEA AND/OR VOMITING Pantoprazole Sodium (Protonix -) 40 mg PO DAILY [facility] Last Admin: 02/28/17 09:12 Dose: 40 mg - Objective Vital Signs: Vital Signs Temperature 100 F H 02/28/17 17:01 Pulse Rate 71 02/28/17 17:01 Respiratory Rate 20 02/28/17 17:01 Blood Pressure 141/75 02/28/17 17:01 O2 Sat by Pulse Oximetry (%) 98 02/28/17 09:00 Labs: CBC, BMP 02/27/17 06:30 02/27/17 06:30 INR, PTT INR 1.29 (0.82-1.09) H 02/11/17 18:52 Problem List - Problems (1) Perforation bowel Code(s): K63.1 - PERFORATION OF INTESTINE (NONTRAUMATIC) (2) Sepsis Code(s): A41.9 - SEPSIS, UNSPECIFIED ORGANISM (3) Diabetes mellitus Code(s): E11.9 - TYPE 2 DIABETES MELLITUS WITHOUT COMPLICATIONS (4) Hypertension Code(s): I10 - ESSENTIAL (PRIMARY) HYPERTENSION (5) Obesity Code(s): E66.9 - OBESITY, UNSPECIFIED Qualifiers: Obesity type: due to excess calories
[2017-03-01] MEDS: IBUPROFEN 400 MG TABLET (FP) PO PRN ×3 (02:02→21:07)
[2017-03-01] MEDS: ENALAPRIL MALEATE 10 MG TABLET (FP) PO SCH (09:36)
[2017-03-01] MEDS: AMOX TR/POT CLAV 875MG/125MG TABLETS (FP) PO SCH (09:36)
[2017-03-01] MEDS: METOPROLOL SUCCINATE 25 MG TAB.SR.24H (FP) PO SCH (09:36)
[2017-03-01] MEDS: PANTOPRAZOLE 40 MG TABLET (FP) PO SCH (09:36)
--- NOTE | 2017-03-01 13:22 | PN ---
Progress Note, Physician History of Present Illness: patient doing well pain after the vac was changed colostomy fning well - Current Medication List Current Medications: Active Medications Acetaminophen (Tylenol -) 650 mg PO Q6H PRN PRN Reason: FEVER OR PAIN Last Admin: 02/28/17 20:30 Dose: 650 mg Amoxicillin/Clavulanate Potassium (Augmentin - 875mg Tablet) 1 tab PO BID@0800, 1730 [facility] Last Admin: 03/01/17 09:36 Dose: 1 tab Enalapril Maleate (Vasotec -) 20 mg PO DAILY [facility] Last Admin: 03/01/17 09:36 Dose: 20 mg Ibuprofen (Motrin -) 200 mg PO Q6H PRN PRN Reason: PAIN Last Admin: 03/01/17 11:10 Dose: 200 mg Metoprolol Succinate (Toprol Xl -) 25 mg PO DAILY [facility] Last Admin: 03/01/17 09:36 Dose: 25 mg Ondansetron HCl (Zofran Injection) 4 mg IVPUSH Q6H PRN PRN Reason: NAUSEA AND/OR VOMITING Pantoprazole Sodium (Protonix -) 40 mg PO DAILY [facility] Last Admin: 03/01/17 09:36 Dose: 40 mg - Objective Vital Signs: Vital Signs Temperature 98.5 F 03/01/17 09:00 Pulse Rate 83 03/01/17 09:00 Respiratory Rate 16 03/01/17 09:00 Blood Pressure 161/91 03/01/17 09:00 O2 Sat by Pulse Oximetry (%) 96 03/01/17 09:00 Constitutional: Yes: No Distress, Calm Cardiovascular: Yes: Regular Rate and Rhythm Respiratory: Yes: Regular, CTA Bilaterally Gastrointestinal: Yes: Normal Bowel Sounds, Soft Musculoskeletal: Yes: Other Extremities: Yes: Other Wound/Incision: Yes: Other (wound vac in place) Neurological: Yes: Alert, Oriented Psychiatric: Yes: Alert Labs: CBC, BMP 02/27/17 06:30 02/27/17 06:30 INR, PTT INR 1.29 (0.82-1.09) H 02/11/17 18:52 Assessment/Plan Problem List - Problems (1) Acute abdomen Code(s): R10.0 - ACUTE ABDOMEN (2) Diabetes mellitus Code(s): E11.9 - TYPE 2 DIABETES MELLITUS WITHOUT COMPLICATIONS (3) Obesity Code(s): E66.9 - OBESITY, UNSPECIFIED Qualifiers: Obesity type: due to excess calories (4) Perforation bowel Code(s): K63.1 - PERFORATION OF INTESTINE (NONTRAUMATIC) (5) Septic shock Code(s): A41.9 - SEPSIS, UNSPECIFIED ORGANISM R65.21 - SEVERE SEPSIS WITH SEPTIC SHOCK had one spike stable since then plan continue oral abx continue current mgmt patient tolerating diet will stop abx
--- NOTE | 2017-03-01 16:39 | PN ---
Progress Note, Physician - Current Medication List Current Medications: Active Medications Acetaminophen (Tylenol -) 650 mg PO Q6H PRN PRN Reason: FEVER OR PAIN Last Admin: 02/28/17 20:30 Dose: 650 mg Enalapril Maleate (Vasotec -) 20 mg PO DAILY [facility] Last Admin: 03/01/17 09:36 Dose: 20 mg Ibuprofen (Motrin -) 200 mg PO Q6H PRN PRN Reason: PAIN Last Admin: 03/01/17 11:10 Dose: 200 mg Metoprolol Succinate (Toprol Xl -) 25 mg PO DAILY [facility] Last Admin: 03/01/17 09:36 Dose: 25 mg Ondansetron HCl (Zofran Injection) 4 mg IVPUSH Q6H PRN PRN Reason: NAUSEA AND/OR VOMITING Pantoprazole Sodium (Protonix -) 40 mg PO DAILY [facility] Last Admin: 03/01/17 09:36 Dose: 40 mg - Objective Vital Signs: Vital Signs Temperature 98.5 F 03/01/17 09:00 Pulse Rate 83 03/01/17 09:00 Respiratory Rate 16 03/01/17 09:00 Blood Pressure 161/91 03/01/17 09:00 O2 Sat by Pulse Oximetry (%) 96 03/01/17 09:00 Labs: CBC, BMP 02/27/17 06:30 02/27/17 06:30 INR, PTT INR 1.29 (0.82-1.09) H 02/11/17 18:52 Problem List - Problems (1) Perforation bowel Code(s): K63.1 - PERFORATION OF INTESTINE (NONTRAUMATIC) (2) Acute abdomen Code(s): R10.0 - ACUTE ABDOMEN (3) Obesity Code(s): E66.9 - OBESITY, UNSPECIFIED Qualifiers: (4) Diabetes mellitus Code(s): E11.9 - TYPE 2 DIABETES MELLITUS WITHOUT COMPLICATIONS Assessment/Plan Surgery: Patient is afebrile. Wound with wound vac. Colostomy functioning well. Patient is being discharged home with service/ half-way. She is afebrile, WBc is normal.
[2017-03-01] MEDS: ACETAMINOPHEN 325 MG TABLET (FP) PO PRN (21:08)
--- NOTE | 2017-03-01 22:23 | PN ---
Progress Note, Physician - Current Medication List Current Medications: Active Medications Acetaminophen (Tylenol -) 650 mg PO Q6H PRN PRN Reason: FEVER OR PAIN Last Admin: 03/01/17 21:08 Dose: 650 mg Enalapril Maleate (Vasotec -) 20 mg PO DAILY [facility] Last Admin: 03/01/17 09:36 Dose: 20 mg Ibuprofen (Motrin -) 200 mg PO Q6H PRN PRN Reason: PAIN Last Admin: 03/01/17 21:07 Dose: 200 mg Metoprolol Succinate (Toprol Xl -) 25 mg PO DAILY [facility] Last Admin: 03/01/17 09:36 Dose: 25 mg Ondansetron HCl (Zofran Injection) 4 mg IVPUSH Q6H PRN PRN Reason: NAUSEA AND/OR VOMITING Pantoprazole Sodium (Protonix -) 40 mg PO DAILY [facility] Last Admin: 03/01/17 09:36 Dose: 40 mg - Objective Vital Signs: Vital Signs Temperature 98.3 F 03/01/17 16:40 Pulse Rate 75 03/01/17 16:40 Respiratory Rate 18 03/01/17 16:40 Blood Pressure 145/82 03/01/17 16:40 O2 Sat by Pulse Oximetry (%) 96 03/01/17 09:00 Labs: CBC, BMP 02/27/17 06:30 02/27/17 06:30 INR, PTT INR 1.29 (0.82-1.09) H 02/11/17 18:52 Problem List - Problems (1) Perforation bowel Code(s): K63.1 - PERFORATION OF INTESTINE (NONTRAUMATIC) (2) Sepsis Code(s): A41.9 - SEPSIS, UNSPECIFIED ORGANISM (3) Diabetes mellitus Code(s): E11.9 - TYPE 2 DIABETES MELLITUS WITHOUT COMPLICATIONS (4) Hypertension Code(s): I10 - ESSENTIAL (PRIMARY) HYPERTENSION (5) Obesity Code(s): E66.9 - OBESITY, UNSPECIFIED Qualifiers: Obesity type: due to excess calories
[2017-03-02 06:59] VITALS: TEMP 98.8
[2017-03-02 07:59] LABS: EOSINOPHIL 1.3 % (0-4.5); MCH 32.1 pg (25.7-33.7); MCHC 33.3 g/dl (32.0-36.0); MEAN CELL VOLUME 96.3 fl (80-96); MEAN PLT VOLUME 7.8 fl (7.5-11.1); NEUTROPHILS 70.1 % (42.8-82.8); PLATELET COUNT 618 K/MM3 (134-434); RDW 15.7 % (11.6-15.6); WHITE BLOOD COUNT 7.2 K/mm3 (4.0-10.0)
[2017-03-02 08:30] LABS: ALK PHOS 65 U/L (45-117); ANION GAP 10 (8-16); BILIRUBIN,TOTAL 0.5 mg/dL (0.2-1.0); CALCIUM 8.3 mg/dL (8.5-10.1); CO2 27 mmol/L (21-32); CREATININE 0.4 mg/dL (0.55-1.02); GLUCOSE,RANDOM 77 mg/dL (74-106); SGOT/AST 8 U/L (15-37); SGPT/ALT 8 U/L (12-78); TOT PROT 6.7 g/dl (6.4-8.2)
[2017-03-02 08:41] VITALS: BP 158/81; PULSE 92
[2017-03-02] MEDS: METOPROLOL SUCCINATE 25 MG TAB.SR.24H (FP) PO SCH (09:26)
[2017-03-02] MEDS: ENALAPRIL MALEATE 10 MG TABLET (FP) PO SCH (09:26)
[2017-03-02] MEDS: PANTOPRAZOLE 40 MG TABLET (FP) PO SCH (09:26)
--- NOTE | 2017-03-02 10:24 | PN ---
Progress Note, Physician - Current Medication List Current Medications: Active Medications Acetaminophen (Tylenol -) 650 mg PO Q6H PRN PRN Reason: FEVER OR PAIN Last Admin: 03/01/17 21:08 Dose: 650 mg Enalapril Maleate (Vasotec -) 20 mg PO DAILY [facility] Last Admin: 03/02/17 09:26 Dose: 20 mg Ibuprofen (Motrin -) 200 mg PO Q6H PRN PRN Reason: PAIN Last Admin: 03/01/17 21:07 Dose: 200 mg Metoprolol Succinate (Toprol Xl -) 25 mg PO DAILY [facility] Last Admin: 03/02/17 09:26 Dose: 25 mg Ondansetron HCl (Zofran Injection) 4 mg IVPUSH Q6H PRN PRN Reason: NAUSEA AND/OR VOMITING Pantoprazole Sodium (Protonix -) 40 mg PO DAILY [facility] Last Admin: 03/02/17 09:26 Dose: 40 mg - Objective Vital Signs: Vital Signs Temperature 98.8 F 03/02/17 08:40 Pulse Rate 92 H 03/02/17 08:40 Respiratory Rate 18 03/02/17 08:40 Blood Pressure 158/81 03/02/17 08:40 O2 Sat by Pulse Oximetry (%) 96 03/01/17 21:00 Labs: CBC, BMP 03/02/17 06:00 03/02/17 06:00 INR, PTT INR 1.29 (0.82-1.09) H 02/11/17 18:52 Problem List - Problems (1) Perforation bowel Code(s): K63.1 - PERFORATION OF INTESTINE (NONTRAUMATIC) (2) Acute abdomen Code(s): R10.0 - ACUTE ABDOMEN (3) Obesity Code(s): E66.9 - OBESITY, UNSPECIFIED Qualifiers: (4) Diabetes mellitus Code(s): E11.9 - TYPE 2 DIABETES MELLITUS WITHOUT COMPLICATIONS Assessment/Plan Wound is clean , afebrile. WBC improved Patient is out of bed, eating. Being discharged to care home. Patient had prolonged leucocytosis, preventing secondary wound closure. Continue with VAC dressing.
[2017-03-02] MEDS ORDERED: morphine CARPU-JECT 2 MG/1 ML DISP.SYRIN IVPUSH ONE (11:00)
--- NOTE | 2017-03-02 12:54 | DS ---
Physical Examination Vital Signs: Vital Signs Temperature 98.8 F 03/02/17 08:40 Pulse Rate 92 H 03/02/17 08:40 Respiratory Rate 18 03/02/17 08:40 Blood Pressure 158/81 03/02/17 08:40 O2 Sat by Pulse Oximetry (%) 97 03/02/17 09:00 Labs: CBC, BMP 03/02/17 06:00 03/02/17 06:00 Discharge Summary Reason For Visit: PERFORATION OF INTESTINE Current Active Problems Acute abdomen (Acute) Exploratory laparotomy Abdominal abscesses Diabetes mellitus (Acute) Hypertension (Acute) Obesity (Acute) Perforation bowel (Acute) Sepsis (Acute) Septic shock (Acute) Hospital Course: Pt is a 66 y/o female with PMH significant for HTN, DM who presented to the ER with abdominal pain. Pt underwent laparotmy w/ sigmoid resection and transverse loop colectomy and lysis of adhesions. Pt found to have ischemic omnetum w/ intraabdominal absecesses and was intubated and admitted to the ICU. Pt subsequently was extubated and has been on IV antubxs wc she has now finished and is on po augmentin for another 10 days Pt has wound vac wc will need to be continued at rehab center. Condition: Good - Instructions Referrals: STAFF,NOT ON [Primary Care Provider] - [facility] - Home Medications Comprehensive Discharge Medication List: Ambulatory Orders Enalapril Maleate [Vasotec] 20 mg PO DAILY 02/11/17 Hydrochlorothiazide [Hctz -] 25 mg PO DAILY 02/11/17 Metformin HCl 500 mg PO DAILY 02/11/17 Metoprolol Succinate [Toprol XL -] 25 mg PO DAILY 02/11/17 Amox-Tr/K Cl [Augmentin 875-125mg Tablet -] 1 tab PO BID@0800,1730 tablet 03/01 Ibuprofen [Motrin -] 200 mg PO Q6H PRN #0 tablet 03/01/17 Oxycodone HCl/Acetaminophen [Percocet 10-325 mg Tablet] 1 each PO BID #60 tablet MDD 2 03/01/17
--- NOTE | 2017-03-02 14:00 | PN ---
Progress Note, Physician History of Present Illness: doing well no complaints tolerating diet wbc normal - Current Medication List Current Medications: Active Medications Acetaminophen (Tylenol -) 650 mg PO Q6H PRN PRN Reason: FEVER OR PAIN Last Admin: 03/01/17 21:08 Dose: 650 mg Enalapril Maleate (Vasotec -) 20 mg PO DAILY [facility] Last Admin: 03/02/17 09:26 Dose: 20 mg Ibuprofen (Motrin -) 200 mg PO Q6H PRN PRN Reason: PAIN Last Admin: 03/01/17 21:07 Dose: 200 mg Metoprolol Succinate (Toprol Xl -) 25 mg PO DAILY [facility] Last Admin: 03/02/17 09:26 Dose: 25 mg Ondansetron HCl (Zofran Injection) 4 mg IVPUSH Q6H PRN PRN Reason: NAUSEA AND/OR VOMITING Pantoprazole Sodium (Protonix -) 40 mg PO DAILY [facility] Last Admin: 03/02/17 09:26 Dose: 40 mg - Objective Vital Signs: Vital Signs Temperature 98.8 F 03/02/17 08:40 Pulse Rate 92 H 03/02/17 08:40 Respiratory Rate 18 03/02/17 08:40 Blood Pressure 158/81 03/02/17 08:40 O2 Sat by Pulse Oximetry (%) 97 03/02/17 09:00 Constitutional: Yes: No Distress, Calm Cardiovascular: Yes: Regular Rate and Rhythm Respiratory: Yes: Regular, CTA Bilaterally Gastrointestinal: Yes: Normal Bowel Sounds, Soft Musculoskeletal: Yes: WNL Extremities: Yes: WNL Wound/Incision: Yes: Dressing Dry and Intact, Other Neurological: Yes: Alert, Oriented Psychiatric: Yes: Alert, Oriented Labs: CBC, BMP 03/02/17 06:00 03/02/17 06:00 INR, PTT INR 1.29 (0.82-1.09) H 02/11/17 18:52 Assessment/Plan Problem List - Problems (1) Acute abdomen Code(s): R10.0 - ACUTE ABDOMEN (2) Diabetes mellitus Code(s): E11.9 - TYPE 2 DIABETES MELLITUS WITHOUT COMPLICATIONS (3) Obesity Code(s): E66.9 - OBESITY, UNSPECIFIED Qualifiers: Obesity type: due to excess calories (4) Perforation bowel Code(s): K63.1 - PERFORATION OF INTESTINE (NONTRAUMATIC) (5) Septic shock Code(s): A41.9 - SEPSIS, UNSPECIFIED ORGANISM R65.21 - SEVERE SEPSIS WITH SEPTIC SHOCK had one spike stable since then plan stopped all abx patient stable continue wound care rest as per surgery and primary care
== END 2017-03-02 15:21 | DRG 853 ==
LOC: JER 12:53 → JERBED 18:56 → JICU 02-12 02:22 → J8W 02-17 09:09
PROVIDERS: ADMIT Internal Medicine; ATTEND Internal Medicine
PROC: 0DTN0ZZ Resection of Sigmoid Colon, Open Approach (ICD-10-PCS; principal; 2017-02-12)
PROC: 0D1L0Z4 Bypass Transverse Colon to Cutaneous, Open Approach (ICD-10-PCS; 2017-02-12)
PROC: 0DBS0ZZ (ICD-10-PCS; 2017-02-12)
PROC: 0DNW0ZZ Release Peritoneum, Open Approach (ICD-10-PCS; 2017-02-12)
PROC: 0W9G0ZX Drainage of Peritoneal Cavity, Open Approach, Diagnostic (ICD-10-PCS; 2017-02-12)
PROC: 3E1M38Z Irrigation of Peritoneal Cavity using Irrigating Substance, Percutaneous Approach (ICD-10-PCS; 2017-02-12)
PROC: 02HV33Z Insertion of Infusion Device into Superior Vena Cava, Percutaneous Approach (ICD-10-PCS; 2017-02-12)
PROC: B548ZZA Ultrasonography of Superior Vena Cava, Guidance (ICD-10-PCS; 2017-02-12)
PROC: 5A1935Z Respiratory Ventilation, Less than 24 Consecutive Hours (ICD-10-PCS; 2017-02-12)
PROC: 0BH17EZ Insertion of Endotracheal Airway into Trachea, Via Natural or Artificial Opening (ICD-10-PCS; 2017-02-12)
PROC: 0D9630Z Drainage of Stomach with Drainage Device, Percutaneous Approach (ICD-10-PCS; 2017-02-19)
DX: A41.9 Sepsis, unspecified organism (principal); R65.21 Severe sepsis with septic shock; J95.821 Acute postprocedural respiratory failure; K57.20 Diverticulitis of large intestine with perforation and abscess without bleeding; I10 Essential (primary) hypertension; E11.9 Type 2 diabetes mellitus without complications; Z79.84 Long term (current) use of oral hypoglycemic drugs; K59.00 Constipation, unspecified; E66.01 Morbid (severe) obesity due to excess calories; I95.9 Hypotension, unspecified; Z68.30 Body mass index [BMI] 30.0-30.9, adult; F17.210 Nicotine dependence, cigarettes, uncomplicated; Y83.8 Other surgical procedures as the cause of abnormal reaction of the patient, or of later complication, without mention of misadventure at the time of the procedure; Z88.0 Allergy status to penicillin
CPT/HCPCS: 36415; 36600; 49406; 71010-TC; 74176-TC; 74177-TC; 76098-TC; 77012-TC; 80048; 80053; 80076; 81003; 81015; 82803; 83605; 83690; 83735; 84100; 85025; 85027; 85610; 85730; 86850; 86900; 86901; 87040; 87070; 87075; 87077; 87186; 87205; 87899; 88304-TC; 88305-TC; 88307-TC; 93005; 93010; 94002; 94640; 94760; 97116-GP; 97161-GP; 99284-25; C1729; C1769; J0637; J1644; Q9967

== ENCOUNTER 2018-04-29 08:01 | Inpatient (IN) | payer OTHER ==
[2018-04-28 10:00] VITALS: BMI 30.4
--- NOTE | 2018-04-29 08:56 | HP ---
History & Physical Update - History History: No Change - Physical Physical: No Change - Assessment Assessment: No Change - Plan Plan: No Change (Patient is planned rahul have closure of transverse colostomy. Bowel prep done. Antibiotics as per protocol.)
[2018-04-29] MEDS ORDERED: CEFOXITIN SODIUM 1 GM IVPB ONE ×2 (09:53→10:01)
[2018-04-29] MEDS ORDERED: LIDOCAINE HCL/PF 2% SDV 5ML VIAL ONE (09:58)
[2018-04-29] MEDS ORDERED: fentaNYL CITRATE 250 MCG/5 ML VIAL ONE ×2 (09:58→10:48)
[2018-04-29] MEDS ORDERED: MIDAZOLAM HCL 2 MG/2 ML SINGLE DOSE VIAL ONE (09:59)
[2018-04-29] MEDS ORDERED: PROPOFOL 20 ML ONE ×2 (09:59)
[2018-04-29] MEDS ORDERED: ROCURONIUM BROMIDE 50 MG/5 ML VIAL ONE ×3 (09:59→12:38)
[2018-04-29] MEDS ORDERED: cefOXitin SODIUM 1 GM VIAL (RESTRICTED TO ID) IVPB ONE (10:18)
[2018-04-29] MEDS ORDERED: ALBUTEROL SO4 8 GM HFA INHALER IH ONE ×2 (10:21→10:27)
[2018-04-29] MEDS ORDERED: DEXAMETHASONE SOD PHOSPHATE 4 MG/1 ML VIAL ONE (10:26)
[2018-04-29] MEDS ORDERED: NEOSTIGMINE METHYLSULFATE 0.5 MG/ML - 10 ML MDV ONE (12:01)
[2018-04-29] MEDS ORDERED: GLYCOPYRROLATE 0.2 MG/1 ML VIAL ONE (12:01)
--- NOTE | 2018-04-29 13:32 | OP ---
Operative Note - Note: Operative Date: 04/29/18 Pre-Operative Diagnosis: S/P transverse colostomy, s/p perforated sigmoid diverticulitis diverticulitis. Operation: Take down of transverse colostomy., resection of colon with colo- colic anastamosis,. extensive lysis of adhesions. Findings: Extensive adhesions of colon . Colon short for stapled anastamosis, hand sewn anastamosis done. Transverse colostomy taken down. Post-Operative Diagnosis: Same as Pre-op Surgeon: Luciana Villalta Circular Saw Operator: Tai Escamilla Anesthesia: General Specimens Removed: Transverse colon, colostomy. Estimated Blood Loss (mls): 50 Operative Report Dictated: Yes
[2018-04-29] MEDS ORDERED: ONDANSETRON 4 MG/2 ML VIAL IVPUSH PRN (13:37)
[2018-04-29] MEDS ORDERED: LACTATED RINGERS SOLUTION 1,000 ML IV SCH (13:45)
--- NOTE | 2018-04-29 14:07 | SURG ---
Surgery Electrical Troubleshooter Note Electrical Troubleshooter: Tai Escamilla PA-C Date of Service: 04/29/18 Diagnosis: S/P transverse colostomy, s/p perforated sigmoid diverticulitis diverticulitis. Procedure: Take down of transverse colostomy., resection of colon with colo-colic anastamosis,. extensive lysis of adhesions. I was present for the entirety of the operative procedure. For further detail, please refer to operative report. Visit type - Case Type Case Type: Scheduled - New patient This patient is new to me today: Yes Date on this admission: 04/29/18
[2018-04-29] MEDS: HYDROmorphone *PCA* 10MG/50ML DISP.SYRIN PCA SCH (14:15)
[2018-04-29] MEDS: DEXTROSE 5%-LACTATED RINGERS 1,000 ML IV SCH (17:29)
[2018-04-29] MEDS: HEPARIN NA (PORCINE) 5,000 UNITS/ML 1ML VIAL SQ SCH (21:06)
[2018-04-30] MEDS: DEXTROSE 5%-LACTATED RINGERS 1,000 ML IV SCH ×4 (02:15→23:37)
--- NOTE | 2018-04-30 07:48 | OP ---
DATE OF OPERATION: 04/29/2018 PREOPERATIVE DIAGNOSIS: Status post transverse colostomy for sigmoid diverticulitis with perforation, which was operated upon and had resection of the sigmoid colon with a low descending colon to rectal anastomosis. Patient had a protective transverse colostomy performed at the time of the sigmoid resection. Patient was brought in for close of colostomy. Patient had a bowel prep and antibiotic was given prior to the procedure. Consent was obtained. Risks, benefits, and complications had been discussed with the patient. DESCRIPTION OF PROCEDURE: Patient was brought to the operating room. Patient had a transverse colostomy in the right upper quadrant of the abdomen. General anesthesia was administered, time-out was called, patient was given antibiotics. Abdomen was painted and draped. An elliptical incision was made around the colostomy in the right upper quadrant of the abdomen. The incision was carried through the skin, subcutaneous fat, all the way down to the anterior rectus sheath circumferentially around the colostomy. The abdominal cavity was then entered, and the colostomy from the abdominal wall circumferentially. There were multiple adhesions of the omentum and the transverse colon which were lysed using sharp as well as blunt dissection. The colostomy was then identified, and the proximal and the distal limb of the transverse colon were also identified and brought through the wound. The colon proximal to the colostomy was adequately mobilized. However, distally, the colon was short, and it seemed that a distal anastomosis using a mechanical GI device would result in a very tight [id number] anastomosis. It was therefore decided to resect the segment of the colon, there was a healthy amount of colon distally, to do a hand-sewn, end-to-end anastomosis. The colostomy was brought down and the open end of the colon was resected using a CRISTIAN stapling device, on either side of the stoma. The bowel was adequately viable, oxygenated, and pink, with good blood supply at both ends. A 2-layer hand-sewn anastomosis was performed, with outer interrupted 3-0 seromuscular sutures, with an inner continuous suture using 3-0 Vicryl, in a locking fashion brought anteriorly as a Sudeep suture. The anastomosis was adequate, allowing 2 fingers without any tension and without any leak. A good 2-layer anastomosis was performed. The mesentery was normal without any defect. The bowel was then freed circumferentially in the peritoneal cavity with sharp and blunt dissection. The rest of the bowel was normal. The abdominal cavity was thoroughly irrigated with normal saline; 2 L of irrigation fluid was used. Once the bowel was freed, the abdomen was closed in a vertical fashion approximating the rectus sheath and the rectus muscle in a far-near near-far interrupted sutures using No. 1 Prolene. The abdominal cavity and abdomen were adequately approximated. The anterior rectus sheath was then closed with interrupted 3-0 Vicryl sutures. Two long Prolene sutures were placed in a mattress fashion, but not tied. This was wrapped around the gauze. The wound was packed with 1-inch Iodoform gauze for closure by secondary intention. Hemostasis was satisfactory at the completion of procedure. Estimated blood loss was 50 mL. Sponge count and instrument count were correct. Patient remained stable throughout the procedure. Patient was extubated and sent to the recovery room in satisfactory and stable condition. Emili [id number] MTDD
[2018-04-30 09:04] LABS: ANION GAP 6 MMOL/L (8-16); BLOOD UREA NITROGEN 7 mg/dL (7-18); CALCIUM 8.3 mg/dL (8.5-10.1); CHLORIDE 109 mmol/L (98-107); CO2 29 mmol/L (21-32); CREATININE 0.6 mg/dL (0.55-1.3); GLUCOSE,RANDOM 107 mg/dL (74-106); POTASSIUM 3.6 mmol/L (3.5-5.1); SODIUM 144 mmol/L (136-145)
[2018-04-30 09:39] LABS: BASO % 0.2 % (0-2.0); HEMATOCRIT 39.4 % (32.4-45.2); MCH 31.8 pg (25.7-33.7); MCHC 33.1 g/dl (32.0-36.0); MEAN CELL VOLUME 96.1 fl (80-96); MEAN PLT VOLUME 8.7 fl (7.5-11.1); MONO % 11.9 % (3.8-10.2); NEUT % 74.9 % (42.8-82.8); PLATELET COUNT 242 K/MM3 (134-434); RDW 15.6 % (11.6-15.6)
[2018-04-30] MEDS ORDERED: HYDROmorphone *PCA* 10MG/50ML DISP.SYRIN PCA ONE (09:39)
[2018-04-30] MEDS: HEPARIN NA (PORCINE) 5,000 UNITS/ML 1ML VIAL SQ SCH ×2 (09:53→21:46)
[2018-04-30] MEDS ORDERED: FLU VACCINE QUAD 60 MCG/0.5 ML (MDV 18-19) IM ONE (10:00)
[2018-04-30] MEDS ORDERED: PNEUMOC 13-VAL CONJ-DIP CRM/PF 0.5 ML DISP.SYRIN IM ONE (10:00)
--- NOTE | 2018-04-30 11:21 | CONSULT ---
Consult Consult Specialty:: INTERNAL MEDICINE Referred by:: Dr Villalta Reason for Consultation:: Medical management - History of Present Illness Chief Complaint: Managing DM and HTN History of Present Illness: 68 yrs old female, obese, chronic smoker, DM and HTN - admitted for elective reversal colostomy, resection of colon with colo-colic anastamosis. February 2018 had acute diverticulitis with perforation and underwent colectomy with right sided colostomy. Today is POD #1 Consult called for management of DM and HTN She is NPO Pain being managed with MACHINE PECAN PICKER pump. Post op -uneventful - History Source History Provided By: Patient Limitations to Obtaining History: No Limitations - Past Medical History Cardio/Vascular: Yes: HTN, Hyperlipdemia Endocrine: Yes: Diabetes Mellitus - Past Surgical History Past Surgical History: Yes: Hysterectomy Additional Surgical History: rt sided colostomy , colectomy - Alcohol/Substance Use Hx Alcohol Use: Yes (socail) Number of Drinks Daily: 3 History of Substance Use: reports: None - Smoking History Smoking history: Current every day smoker Have you smoked in the past 12 months: Yes Aproximately how many cigarettes per day: 5 - Social History Usual Living Arrangement: Alone ADL: Independent History of Recent Travel: No Home Medications - Allergies Allergies/Adverse Reactions: Allergies Allergy/AdvReac Type Severity Reaction Status Date / Time aspirin Allergy Mild Nausea Verified 04/29/18 18:58 Penicillins AdvReac Mild Nausea Verified 04/29/18 18:58 - Home Medications Home Medications: Ambulatory Orders Enalapril Maleate [Vasotec] 20 mg PO DAILY 02/11/17 Metoprolol Succinate [Toprol XL -] 25 mg PO DAILY 02/11/17 metFORMIN HCL [Metformin HCl] 500 mg PO DAILY 02/11/17 Simvastatin [Zocor -] 5 mg PO HS 04/28/18 Review of Systems - Review of Systems Constitutional: denies: Chills, Fever Cardiovascular: denies: Chest Pain, Shortness of Breath Gastrointestinal: reports: Abdominal Pain. denies: Nausea Physical Exam Vital Signs: Vital Signs Temperature 98.3 F 04/30/18 06:00 Pulse Rate 73 04/30/18 06:00 Respiratory Rate 18 04/30/18 06:00 Blood Pressure 142/71 04/30/18 06:00 O2 Sat by Pulse Oximetry (%) 99 04/29/18 21:00 Constitutional: Yes: No Distress, Calm Cardiovascular: Yes: Regular Rate and Rhythm Respiratory: Yes: CTA Bilaterally Gastrointestinal: Yes: Soft, Abdomen, Obese, Tenderness, Other (no bowel sounds , surgical area noted Rt sided, dressing noted) Edema: No Neurological: Yes: Alert, Oriented Labs: CBC, BMP 04/30/18 07:00 04/30/18 07:00 Imaging - Results EKG: Image Reviewed Problem List - Problems (1) Diabetes mellitus Code(s): E11.9 - TYPE 2 DIABETES MELLITUS WITHOUT COMPLICATIONS (2) Hypertension Code(s): I10 - ESSENTIAL (PRIMARY) HYPERTENSION (3) Obesity Code(s): E66.9 - OBESITY, UNSPECIFIED Qualifiers: Obesity type: due to excess calories Assessment/Plan PLAN Keep NPO for now IV fluids check lytes pain control with MACHINE PECAN PICKER pump Check insulin sliding scale- hold off Metformin for now Lopressor iv prn for HTN, tachycardia BP acceptable DVT prophylaxis-- Heparin SC Thank you for this consult, will follow with you
[2018-04-30] MEDS ORDERED: METOPROLOL TARTRATE 5 MG/5 ML VIAL IVPUSH PRN (11:41)
--- NOTE | 2018-04-30 14:30 | PN ---
Progress Note, Physician - Current Medication List Current Medications: Active Medications Fentanyl (Sublimaze Injection -) 50 mcg IVPUSH [id number] PRN PRN Reason: PAIN-PACU ORDER X 4 DOSES ONLY Last Admin: 04/29/18 14:00 Dose: 50 mcg Heparin Sodium (Porcine) (Heparin -) 5,000 unit SQ BID [facility] Last Admin: 04/30/18 09:53 Dose: 5,000 unit Hydromorphone HCl (Dilaudid Proof Coins Inspector -) 0 mg JET PIERCER OPERATOR JET PIERCER OPERATOR [facility]; Protocol Stop: 05/06/18 13:37 Last Admin: 04/29/18 14:15 Dose: 2.8 mg Dextrose/Lactated Ringer's (D5-Lr -) 1,000 mls @ 100 mls/hr IV ASDIR [facility] Last Admin: 04/30/18 12:23 Dose: 100 mls/hr Insulin Aspart (Novolog Vial) 0 units SQ TIDAC [facility]; Protocol Metoprolol Tartrate (Lopressor Injection -) 5 mg IVPUSH Q4H PRN PRN Reason: HYPERTENSION Ondansetron HCl (Zofran Injection) 4 mg IVPUSH Q6H PRN PRN Reason: NAUSEA AND/OR VOMITING Last Admin: 04/29/18 13:50 Dose: 4 mg - Objective Vital Signs: Vital Signs Temperature 97.2 F L 04/30/18 10:00 Pulse Rate 74 04/30/18 10:00 Respiratory Rate 20 04/30/18 10:00 Blood Pressure 151/89 04/30/18 10:00 O2 Sat by Pulse Oximetry (%) 95 04/30/18 09:00 Labs: CBC, BMP 04/30/18 07:00 04/30/18 07:00 Assessment/Plan Afebrile, out of bed , ambulating. Dressing changed. Patient explained the operative procedure. No nausea, no vomiting. Elecrolytes are normal. Continue IV fluids.
[2018-04-30] MEDS: HYDROmorphone *PCA* 10MG/50ML DISP.SYRIN PCA SCH (15:09)
[2018-04-30] MEDS: INSULIN (NOVOLOG) ASPART 100 UNITS/ML 10ML VIAL SQ SCH (17:14)
[2018-04-30] MEDS ORDERED: PT OWN MED DRAWER 7, Y5N ONE (18:05)
[2018-05-01] MEDS: INSULIN (NOVOLOG) ASPART 100 UNITS/ML 10ML VIAL SQ SCH ×3 (06:56→17:52)
--- NOTE | 2018-05-01 07:50 | PN ---
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 - Current Medication List Current Medications: Active Medications Fentanyl (Sublimaze Injection -) 50 mcg IVPUSH [id number] PRN PRN Reason: PAIN-PACU ORDER X 4 DOSES ONLY Last Admin: 04/29/18 14:00 Dose: 50 mcg Heparin Sodium (Porcine) (Heparin -) 5,000 unit SQ BID [facility] Last Admin: 04/30/18 21:46 Dose: 5,000 unit Hydromorphone HCl (Dilaudid Registered Nurse Cardiac Telemetry -) 0 mg SUPERVISOR PAINTING SUPERVISOR PAINTING [facility]; Protocol Stop: 05/06/18 13:37 Last Admin: 04/30/18 15:09 Dose: Not Given Dextrose/Lactated Ringer's (D5-Lr -) 1,000 mls @ 100 mls/hr IV ASDIR [facility] Last Admin: 04/30/18 23:37 Dose: 100 mls/hr Insulin Aspart (Novolog Vial) 0 units SQ TIDAC [facility]; Protocol Last Admin: 05/01/18 06:56 Dose: Not Given Metoprolol Tartrate (Lopressor Injection -) 5 mg IVPUSH Q4H PRN PRN Reason: HYPERTENSION Ondansetron HCl (Zofran Injection) 4 mg IVPUSH Q6H PRN PRN Reason: NAUSEA AND/OR VOMITING Last Admin: 04/29/18 13:50 Dose: 4 mg - Objective Vital Signs: Vital Signs Temperature 97.8 F 05/01/18 06:00 Pulse Rate 93 H 05/01/18 06:00 Respiratory Rate 20 05/01/18 06:00 Blood Pressure 167/78 05/01/18 06:00 O2 Sat by Pulse Oximetry (%) 95 04/30/18 21:00 Constitutional: Yes: Well Nourished Cardiovascular: Yes: WNL Respiratory: Yes: WNL Gastrointestinal: Yes: WNL Labs: CBC, BMP 04/30/18 07:00 04/30/18 07:00 Assessment/Plan Pain controlled, not tolerating po yet, no anesthetic complications, will continue hotel front 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
[2018-05-01] MEDS: HEPARIN NA (PORCINE) 5,000 UNITS/ML 1ML VIAL SQ SCH ×2 (09:54→21:14)
--- NOTE | 2018-05-01 11:09 | PN ---
Progress Note (short form) - Note Progress Note: OOB not passing flatus has pain in abdomen- controlled with MATH AND SCIENCE INSTRUCTOR Vital Signs - 24 hr 04/30/18 04/30/18 04/30/18 14:30 18:16 21:00 Temperature 98.8 F 98.5 F Pulse Rate 87 76 Respiratory 19 18 18 Rate Blood Pressure 157/81 145/57 L O2 Sat by Pulse 95 Oximetry (%) 04/30/18 05/01/18 05/01/18 22:00 01:18 06:00 Temperature 98.2 F 98.8 F 97.8 F Pulse Rate 75 82 93 H Respiratory 18 18 20 Rate Blood Pressure 134/60 139/62 167/78 O2 Sat by Pulse Oximetry (%) 05/01/18 10:00 Temperature 99.2 F Pulse Rate 76 Respiratory 20 Rate Blood Pressure 149/77 O2 Sat by Pulse Oximetry (%) Current Medications Generic Name Dose Route Start Last Admin Trade Name Freq PRN Reason Stop Dose Admin Fentanyl 50 mcg 04/29/18 13:37 04/29/18 14:00 Sublimaze Injection - IVPUSH 50 mcg [id number] PRN Administration PAIN-PACU ORDER X 4 DOSES ONLY Heparin Sodium (Porcine) 5,000 unit 04/29/18 22:00 05/01/18 09:54 Heparin - SQ 5,000 unit BID [facility] Administration Hydromorphone HCl 0 mg 04/29/18 13:45 04/30/18 15:09 Dilaudid Line Staker - MATH AND SCIENCE INSTRUCTOR 05/06/18 13:37 Not Given MATH AND SCIENCE INSTRUCTOR [facility] Protocol Insulin Aspart 0 units 04/30/18 16:30 05/01/18 06:56 Novolog Vial SQ Not Given TIDAC [facility] Protocol Metoprolol Tartrate 5 mg 04/30/18 11:41 Lopressor Injection - IVPUSH Q4H PRN HYPERTENSION Ondansetron HCl 4 mg 04/29/18 13:37 04/29/18 13:50 Zofran Injection IVPUSH 4 mg Q6H PRN Administration NAUSEA AND/OR VOMITING Laboratory Results - last 24 hr 04/30/18 05/01/18 17:09 06:55 POC Glucometer 140 121 S1S2 RRR Oral moist Lungs clear Abd- NT, obese, surgical scars noted, BS better heard today not distended No edema PLAN Keep NPO Add KCl to the iv fluids pain control insulin sliding scale spoke with DR Villalta-- keep NPO till Wednesday
--- NOTE | 2018-05-01 12:56 | PN ---
Progress Note (short form) - Note Progress Note: ANESTHESIOLOGY 68F s/p colostomy reversal under general anesthesia POD #1. No acute complaints. Pain 0/10 and tolerable with GIZZARD PEELER. Denies N/V. Vital Signs Temperature 99.2 F 05/01/18 10:00 Pulse Rate 76 05/01/18 10:00 Respiratory Rate 20 05/01/18 10:00 Blood Pressure 149/77 05/01/18 10:00 O2 Sat by Pulse Oximetry (%) 95 04/30/18 21:00 Active Medications Fentanyl (Sublimaze Injection -) 50 mcg IVPUSH [id number] PRN PRN Reason: PAIN-PACU ORDER X 4 DOSES ONLY Last Admin: 04/29/18 14:00 Dose: 50 mcg Heparin Sodium (Porcine) (Heparin -) 5,000 unit SQ BID [facility] Last Admin: 05/01/18 09:54 Dose: 5,000 unit Hydromorphone HCl (Dilaudid House Coordinator -) 0 mg GIZZARD PEELER GIZZARD PEELER [facility]; Protocol Stop: 05/06/18 13:37 Last Admin: 04/30/18 15:09 Dose: Not Given Potassium Chloride 20 meq/ (Dextrose/Lactated Ringer's) 1,000 mls @ 100 mls/hr IVPB ASDIR [facility] Insulin Aspart (Novolog Vial) 0 units SQ TIDAC [facility]; Protocol Last Admin: 05/01/18 11:26 Dose: Not Given Metoprolol Tartrate (Lopressor Injection -) 5 mg IVPUSH Q4H PRN PRN Reason: HYPERTENSION Ondansetron HCl (Zofran Injection) 4 mg IVPUSH Q6H PRN PRN Reason: NAUSEA AND/OR VOMITING Last Admin: 04/29/18 13:50 Dose: 4 mg Gen: awake, alert , NAD No apparent anesthesia complications. Continue GIZZARD PEELER until tolerating PO diet.
[2018-05-01] MEDS: DEXTROSE 5%-LACTATED RINGERS 990 ML with POTASSIUM CHLORIDE 20 MEQ IVPB SCH (14:43)
[2018-05-01] MEDS: HYDROmorphone *PCA* 10MG/50ML DISP.SYRIN PCA SCH (14:49)
[2018-05-01] MEDS ORDERED: HYDROmorphone *PCA* 10MG/50ML DISP.SYRIN PCA ONE (17:35)
[2018-05-02] MEDS: INSULIN (NOVOLOG) ASPART 100 UNITS/ML 10ML VIAL SQ SCH ×3 (06:35→17:16)
[2018-05-02] MEDS ORDERED: INSULIN (NOVOLOG) ASPART 100 UNITS/ML 10ML VIAL ONE (06:47)
[2018-05-02 07:26] LABS: BASO % 0.2 % (0-2.0); EOS % 0.4 % (0-4.5); HEMATOCRIT 39.3 % (32.4-45.2); HEMOGLOBIN 12.9 GM/dL (10.7-15.3); MCH 31.9 pg (25.7-33.7); MCHC 32.9 g/dl (32.0-36.0); MEAN CELL VOLUME 96.9 fl (80-96); MEAN PLT VOLUME 8.6 fl (7.5-11.1); MONO % 10.3 % (3.8-10.2); NEUT % 78.1 % (42.8-82.8); PLATELET COUNT 224 K/MM3 (134-434); RBC 4.05 M/mm3 (3.60-5.2); RDW 14.6 % (11.6-15.6); WHITE BLOOD COUNT 9.7 K/mm3 (4.0-10.0)
[2018-05-02 08:00] LABS: ALBUMIN 2.7 g/dl (3.4-5.0); ALK PHOS 51 U/L (45-117); ANION GAP 7 MMOL/L (8-16); BILIRUBIN,TOTAL 0.8 mg/dL (0.2-1); BLOOD UREA NITROGEN 4 mg/dL (7-18); CALCIUM 8.2 mg/dL (8.5-10.1); CHLORIDE 106 mmol/L (98-107); CO2 29 mmol/L (21-32); CREATININE 0.4 mg/dL (0.55-1.3); GLUCOSE,RANDOM 123 mg/dL (74-106); POTASSIUM 3.6 mmol/L (3.5-5.1); SGOT/AST 9 U/L (15-37); SGPT/ALT 15 U/L (13-61); SODIUM 141 mmol/L (136-145); TOT PROT 6.6 g/dl (6.4-8.2)
--- NOTE | 2018-05-02 10:18 | PN ---
Progress Note (short form) - Note Progress Note: patient seen and examined. Chart reviewed. Awake and comfortable. Pain under control. Not passing gas yet. Walks in the hallway Vital Signs Temp 98.9 F 05/02/18 06:00 Pulse 66 05/02/18 06:00 Resp 18 05/02/18 06:00 BP 151/84 05/02/18 06:00 Pulse Ox 95 05/01/18 21:00 Intake & Output 05/01/18 05/01/18 05/02/18 11:59 23:59 11:59 Intake Total 1500 800 Balance 1500 800 Intake: IV 1500 800 D5-Lr - 1,000 ml @ 100 1100 mls/hr IV ASDIR [facility] Rx#: [id number] D5-Lr - 990 ml @ 100 mls/ 400 800 hr IVPB ASDIR [facility] with KCl - 20 Meq Rx#: [id number] Other: Voiding Method Bedpan Toilet # Unmeasured Voids Void 2 3 2 Bowel Movement No No Active Medications Fentanyl (Sublimaze Injection -) 50 mcg IVPUSH [id number] PRN PRN Reason: PAIN-PACU ORDER X 4 DOSES ONLY Last Admin: 04/29/18 14:00 Dose: 50 mcg Heparin Sodium (Porcine) (Heparin -) 5,000 unit SQ BID [facility] Last Admin: 05/01/18 21:14 Dose: 5,000 unit Hydromorphone HCl (Dilaudid Addictions Therapist -) 0 mg DOOR MACHINE OPERATOR DOOR MACHINE OPERATOR [facility]; Protocol Stop: 05/06/18 13:37 Last Admin: 05/01/18 14:49 Dose: Not Given Potassium Chloride 20 meq/ (Dextrose/Lactated Ringer's) 1,000 mls @ 100 mls/hr IVPB ASDIR [facility] Last Admin: 05/01/18 14:43 Dose: 100 mls/hr Insulin Aspart (Novolog Vial) 0 units SQ TIDAC [facility]; Protocol Last Admin: 05/02/18 06:35 Dose: Not Given Metoprolol Tartrate (Lopressor Injection -) 5 mg IVPUSH Q4H PRN PRN Reason: HYPERTENSION Ondansetron HCl (Zofran Injection) 4 mg IVPUSH Q6H PRN PRN Reason: NAUSEA AND/OR VOMITING Last Admin: 04/29/18 13:50 Dose: 4 mg CBC, BMP 05/02/18 06:30 05/02/18 06:30 Physical exam awake and comfortable S1S2 RRR mucosa moist Lungs clear Abd- NT, obese, surgical scars noted, BS present--- but sluggish extremities--no edema Neuro--alert and awake PLAN slowly getting better Keep NPO until cleared by surgery to have liquids--likely tomorrow Fluids pain control insulin sliding scale ambulate Monitor lites Will follow.
[2018-05-02] MEDS: HEPARIN NA (PORCINE) 5,000 UNITS/ML 1ML VIAL SQ SCH ×2 (10:28→21:20)
--- NOTE | 2018-05-02 10:31 | PN ---
Progress Note, Physician - Current Medication List Current Medications: Active Medications Fentanyl (Sublimaze Injection -) 50 mcg IVPUSH [id number] PRN PRN Reason: PAIN-PACU ORDER X 4 DOSES ONLY Last Admin: 04/29/18 14:00 Dose: 50 mcg Heparin Sodium (Porcine) (Heparin -) 5,000 unit SQ BID [facility] Last Admin: 05/01/18 21:14 Dose: 5,000 unit Hydromorphone HCl (Dilaudid Wig Comber -) 0 mg TANK CAR LOADER TANK CAR LOADER [facility]; Protocol Stop: 05/06/18 13:37 Last Admin: 05/01/18 14:49 Dose: Not Given Potassium Chloride 20 meq/ (Dextrose/Lactated Ringer's) 1,000 mls @ 100 mls/hr IVPB ASDIR [facility] Last Admin: 05/01/18 14:43 Dose: 100 mls/hr Insulin Aspart (Novolog Vial) 0 units SQ TIDAC [facility]; Protocol Last Admin: 05/02/18 06:35 Dose: Not Given Metoprolol Tartrate (Lopressor Injection -) 5 mg IVPUSH Q4H PRN PRN Reason: HYPERTENSION Ondansetron HCl (Zofran Injection) 4 mg IVPUSH Q6H PRN PRN Reason: NAUSEA AND/OR VOMITING Last Admin: 04/29/18 13:50 Dose: 4 mg - Objective Vital Signs: Vital Signs Temperature 98.9 F 05/02/18 06:00 Pulse Rate 66 05/02/18 06:00 Respiratory Rate 18 05/02/18 06:00 Blood Pressure 151/84 05/02/18 06:00 O2 Sat by Pulse Oximetry (%) 95 05/01/18 21:00 Labs: CBC, BMP 05/02/18 06:30 05/02/18 06:30 Assessment/Plan Surgery: Post operative day #3. Patient is afebrile, wants to eat. She has not passed faltus. No nausea, no vomiting. Abdomen is soft , not distended , not tender. Dressing changed, packing replaced. Wound is clean, CBC and electrolytes are normal. Will start sips of water by mouth. Wait for return of bowels sounds , to resume oral feeding. Patient has been out of bed ambulating. No claf tenderness. Dvt prophylaxis implemented postop. VNS sevices upon discharge.
[2018-05-02] MEDS ORDERED: PT OWN MED DRAWER 7, Y5N ONE (10:58)
--- NOTE | 2018-05-02 15:25 | PN ---
Progress Note (short form) - Note Progress Note: Patient stable and c/o pain score of 2-3/10.So will dc color card maker and put patient on prn pain medication.Rubi stuart anesthesia related problem.Patient Dc from the anesthesia care.
[2018-05-02] MEDS: DEXTROSE 5%-LACTATED RINGERS 990 ML with POTASSIUM CHLORIDE 20 MEQ IVPB SCH ×2 (15:59→23:01)
[2018-05-02] MEDS: HYDROmorphone HCl 2 MG/ML VIAL IVPB PRN (21:19)
[2018-05-03] MEDS ORDERED: METOPROLOL TARTRATE 5 MG/5 ML VIAL IVPB PRN (04:06)
[2018-05-03] MEDS: INSULIN (NOVOLOG) ASPART 100 UNITS/ML 10ML VIAL SQ SCH ×3 (06:29→17:02)
[2018-05-03 06:43] LABS: ALBUMIN 2.9 g/dl (3.4-5.0); ALK PHOS 53 U/L (45-117); ANION GAP 7 MMOL/L (8-16); BILIRUBIN,TOTAL 0.6 mg/dL (0.2-1); BLOOD UREA NITROGEN 4 mg/dL (7-18); CALCIUM 8.6 mg/dL (8.5-10.1); CHLORIDE 103 mmol/L (98-107); CO2 28 mmol/L (21-32); CREATININE 0.5 mg/dL (0.55-1.3); GLUCOSE,RANDOM 132 mg/dL (74-106); POTASSIUM 3.5 mmol/L (3.5-5.1); SGOT/AST 14 U/L (15-37); SGPT/ALT 14 U/L (13-61); SODIUM 138 mmol/L (136-145); TOT PROT 6.9 g/dl (6.4-8.2)
[2018-05-03 07:15] LABS: BASO % 0.2 % (0-2.0); EOS % 0.4 % (0-4.5); HEMATOCRIT 40.2 % (32.4-45.2); HEMOGLOBIN 13.3 GM/dL (10.7-15.3); LYMPH % 9.1 % (8-40); MCH 31.6 pg (25.7-33.7); MEAN CELL VOLUME 95.7 fl (80-96); MEAN PLT VOLUME 8.6 fl (7.5-11.1); MONO % 10.1 % (3.8-10.2); NEUT % 80.2 % (42.8-82.8); PLATELET COUNT 282 K/MM3 (134-434); RDW 14.5 % (11.6-15.6); WHITE BLOOD COUNT 9.3 K/mm3 (4.0-10.0)
[2018-05-03] MEDS: DEXTROSE 5%-LACTATED RINGERS 990 ML with POTASSIUM CHLORIDE 20 MEQ IVPB SCH ×2 (09:27→12:05)
[2018-05-03] MEDS: HEPARIN NA (PORCINE) 5,000 UNITS/ML 1ML VIAL SQ SCH ×2 (09:56→21:13)
--- NOTE | 2018-05-03 10:21 | PN ---
Progress Note, Physician - Current Medication List Current Medications: Active Medications Fentanyl (Sublimaze Injection -) 50 mcg IVPUSH [id number] PRN PRN Reason: PAIN-PACU ORDER X 4 DOSES ONLY Last Admin: 04/29/18 14:00 Dose: 50 mcg Heparin Sodium (Porcine) (Heparin -) 5,000 unit SQ BID [facility] Last Admin: 05/03/18 09:56 Dose: 5,000 unit Hydromorphone HCl (Dilaudid Vial -) 2 mg IVPB Q4H PRN PRN Reason: PAIN LEVEL 6-10 Last Admin: 05/02/18 21:19 Dose: 2 mg Potassium Chloride 20 meq/ (Dextrose/Lactated Ringer's) 1,000 mls @ 100 mls/hr IVPB ASDIR [facility] Last Admin: 05/03/18 09:27 Dose: 100 mls/hr Insulin Aspart (Novolog Vial) 0 units SQ TIDAC [facility]; Protocol Last Admin: 05/03/18 06:29 Dose: Not Given Metoprolol Tartrate (Lopressor Injection -) 5 mg IVPB Q4H PRN PRN Reason: HYPERTENSION Last Admin: 05/03/18 04:17 Dose: 5 mg Ondansetron HCl (Zofran Injection) 4 mg IVPUSH Q6H PRN PRN Reason: NAUSEA AND/OR VOMITING Last Admin: 04/29/18 13:50 Dose: 4 mg Oxycodone HCl (Roxicodone -) 10 mg PO Q3H PRN PRN Reason: PAIN LEVEL 4 - 6 - Objective Vital Signs: Vital Signs Temperature 99.1 F 05/03/18 04:00 Pulse Rate 74 05/03/18 09:55 Respiratory Rate 20 05/03/18 04:00 Blood Pressure 149/82 05/03/18 09:55 O2 Sat by Pulse Oximetry (%) 95 05/02/18 21:00 Labs: CBC, BMP 05/03/18 06:20 05/03/18 05:30 Assessment/Plan Surgery: Patient has no complaints. has been passing flatus. Wound is pink, clean and granulating. Wound irrigated and cleaned. Skin edges loosely approximated , with sutures that had been placed. Progress diet, to full liquids.
--- NOTE | 2018-05-03 10:55 | PN ---
Progress Note (short form) - Note Progress Note: OOB has been passing flatus Abd sore tolerated clears Vital Signs - 24 hr 05/02/18 05/02/18 05/02/18 16:11 20:00 20:08 Temperature 99.0 F 98.2 F Pulse Rate 90 91 H 67 Respiratory 18 20 18 Rate Blood Pressure 138/92 162/63 136/66 O2 Sat by Pulse Oximetry (%) 05/02/18 05/03/18 05/03/18 21:00 00:00 04:00 Temperature 99.4 F 99.1 F Pulse Rate 87 84 Respiratory 18 20 20 Rate Blood Pressure 141/68 183/93 H O2 Sat by Pulse 95 Oximetry (%) 05/03/18 05/03/18 05/03/18 04:17 05:18 06:31 Temperature Pulse Rate 84 64 Respiratory Rate Blood Pressure 183/93 H 148/75 169/88 O2 Sat by Pulse Oximetry (%) 05/03/18 09:55 Temperature Pulse Rate 74 Respiratory Rate Blood Pressure 149/82 O2 Sat by Pulse Oximetry (%) Current Medications Generic Name Dose Route Start Last Admin Trade Name Freq PRN Reason Stop Dose Admin Fentanyl 50 mcg 04/29/18 13:37 04/29/18 14:00 Sublimaze Injection - IVPUSH 50 mcg [id number] PRN Administration PAIN-PACU ORDER X 4 DOSES ONLY Heparin Sodium (Porcine) 5,000 unit 04/29/18 22:00 05/03/18 09:56 Heparin - SQ 5,000 unit BID [facility] Administration Hydromorphone HCl 2 mg 05/02/18 15:23 05/02/18 21:19 Dilaudid Vial - IVPB 2 mg Q4H PRN Administration PAIN LEVEL 6-10 Potassium Chloride 20 meq/ 1,000 mls @ 100 mls/hr 05/01/18 11:08 05/03/18 09: 27 Dextrose/Lactated Ringer's IVPB 100 mls/hr ASDIR [facility] Administration Insulin Aspart 0 units 04/30/18 16:30 05/03/18 06:29 Novolog Vial SQ Not Given TIDAC [facility] Protocol Metoprolol Tartrate 5 mg 05/03/18 04:06 05/03/18 04:17 Lopressor Injection - IVPB 5 mg Q4H PRN Administration HYPERTENSION Ondansetron HCl 4 mg 04/29/18 13:37 04/29/18 13:50 Zofran Injection IVPUSH 4 mg Q6H PRN Administration NAUSEA AND/OR VOMITING Oxycodone HCl 10 mg 05/02/18 15:24 Roxicodone - PO Q3H PRN PAIN LEVEL 4 - 6 Laboratory Results - last 24 hr 05/02/18 05/02/18 05/03/18 12:16 17:15 05:30 WBC RBC Hgb Hct MCV MCH MCHC RDW Plt Count MPV Absolute Neuts (auto) Neutrophils % Lymphocytes % Monocytes % Eosinophils % Basophils % Nucleated RBC % Sodium 138 Potassium 3.5 Chloride 103 Carbon Dioxide 28 Anion Gap 7 L BUN 4 L Creatinine 0.5 L Creat Clearance w eGFR > 60 POC Glucometer 134 128 Random Glucose 132 H Calcium 8.6 Total Bilirubin 0.6 AST 14 L ALT 14 Alkaline Phosphatase 53 Total Protein 6.9 Albumin 2.9 L 05/03/18 05/03/18 06:20 06:27 WBC 9.3 RBC 4.20 Hgb 13.3 Hct 40.2 MCV 95.7 MCH 31.6 MCHC 33.0 RDW 14.5 Plt Count 282 D MPV 8.6 Absolute Neuts (auto) 7.5 Neutrophils % 80.2 Lymphocytes % 9.1 Monocytes % 10.1 Eosinophils % 0.4 Basophils % 0.2 Nucleated RBC % 0 Sodium Potassium Chloride Carbon Dioxide Anion Gap BUN Creatinine Creat Clearance w eGFR POC Glucometer 140 Random Glucose Calcium Total Bilirubin AST ALT Alkaline Phosphatase Total Protein Albumin S1S2 RRR Oral moist Lungs clear Abd- NT, obese, surgical scars noted, BS better heard today not distended No edema PLAN diet per surgeon lytes normal continue IV fluids pain control insulin sliding scale
[2018-05-03] MEDS: HYDROmorphone HCl 2 MG/ML VIAL IVPB PRN ×2 (16:16→22:37)
[2018-05-03] MEDS ORDERED: MELATONIN 5 MG TABLETS PO PRN (22:32)
[2018-05-04] MEDS: oxyCODONE HCL 5 MG TABLET PO PRN ×2 (04:26→13:02)
[2018-05-04] MEDS: INSULIN (NOVOLOG) ASPART 100 UNITS/ML 10ML VIAL SQ SCH ×3 (06:01→16:43)
[2018-05-04] MEDS ORDERED: INSULIN (NOVOLOG) ASPART 100 UNITS/ML 10ML VIAL ONE ×2 (06:54→11:25)
[2018-05-04 07:19] LABS: ANION GAP 9 MMOL/L (8-16); BLOOD UREA NITROGEN 5 mg/dL (7-18); CALCIUM 8.5 mg/dL (8.5-10.1); CHLORIDE 104 mmol/L (98-107); CO2 27 mmol/L (21-32); CREATININE 0.4 mg/dL (0.55-1.3); GLUCOSE,RANDOM 119 mg/dL (74-106); POTASSIUM 3.5 mmol/L (3.5-5.1); SODIUM 140 mmol/L (136-145)
[2018-05-04] MEDS: HEPARIN NA (PORCINE) 5,000 UNITS/ML 1ML VIAL SQ SCH ×2 (09:59→21:44)
--- NOTE | 2018-05-04 10:17 | PN ---
Progress Note (short form) - Note Progress Note: pt has a bm no abd pain feels well Vital Signs - 24 hr 05/04/18 05/04/18 05/04/18 15:22 15:40 16:30 Temperature 98.7 F 99 F Pulse Rate 68 72 69 Respiratory 18 18 Rate Blood Pressure 177/57 H 161/91 145/55 L O2 Sat by Pulse Oximetry (%) 05/04/18 05/04/18 05/05/18 20:02 21:00 06:00 Temperature 98.8 F 98.9 F Pulse Rate 62 78 Respiratory 18 20 20 Rate Blood Pressure 156/74 146/85 O2 Sat by Pulse 98 Oximetry (%) Current Medications Generic Name Dose Route Start Last Admin Trade Name Freq PRN Reason Stop Dose Admin Atorvastatin Calcium 10 mg 05/04/18 22:00 05/04/18 21:44 Lipitor - PO 10 mg HS [facility] Administration Enalapril Maleate 40 mg 05/05/18 09:53 Vasotec - PO DAILY [facility] Fentanyl 50 mcg 04/29/18 13:37 04/29/18 14:00 Sublimaze Injection - IVPUSH 50 mcg [id number] PRN Administration PAIN-PACU ORDER X 4 DOSES ONLY Heparin Sodium (Porcine) 5,000 unit 04/29/18 22:00 05/05/18 09:56 Heparin - SQ Not Given BID [facility] Hydromorphone HCl 2 mg 05/02/18 15:23 05/03/18 22:37 Dilaudid Vial - IVPB 2 mg Q4H PRN Administration PAIN LEVEL 6-10 Insulin Aspart 0 units 04/30/18 16:30 05/05/18 06:44 Novolog Vial SQ Not Given TIDAC [facility] Protocol Melatonin 5 mg 05/03/18 22:32 05/03/18 22:44 Melatonin PO 5 mg HS PRN Administration INSOMNIA Metformin HCl 500 mg 05/05/18 07:00 05/05/18 06:44 Glucophage - PO 500 mg DAILY@0700 [facility] Administration Metoprolol Succinate 25 mg 05/04/18 10:30 05/05/18 09:55 Toprol Xl - PO 25 mg DAILY [facility] Administration Metoprolol Tartrate 5 mg 05/03/18 04:06 05/03/18 04:17 Lopressor Injection - IVPB 5 mg Q4H PRN Administration HYPERTENSION Ondansetron HCl 4 mg 04/29/18 13:37 04/29/18 13:50 Zofran Injection IVPUSH 4 mg Q6H PRN Administration NAUSEA AND/OR VOMITING Oxycodone HCl 10 mg 05/02/18 15:24 05/04/18 13:02 Roxicodone - PO 10 mg Q3H PRN Administration PAIN LEVEL 4 - 6 Laboratory Results - last 24 hr 05/04/18 05/04/18 05/04/18 11:29 16:42 20:18 POC Glucometer 150 122 130 05/05/18 06:43 POC Glucometer 113 S1S2 RRR Oral moist Lungs clear Abd- NT, obese, surgical scars noted, BS+ No edema PLAN diet per surgeon lytes normal change meds to PO pain control may restart her home meds insulin sliding scale
[2018-05-04] MEDS ORDERED: ENALAPRIL MALEATE 10 MG TABLET (FP) PO SCH (10:30)
[2018-05-04] MEDS: metoPROLOL SUCCINATE 25 MG TAB.SR.24H (FP) PO SCH (11:27)
--- NOTE | 2018-05-04 15:46 | PN ---
Progress Note, Physician - Current Medication List Current Medications: Active Medications Atorvastatin Calcium (Lipitor -) 10 mg PO HS [facility] Enalapril Maleate (Vasotec -) 20 mg PO DAILY [facility] Last Admin: 05/04/18 11:27 Dose: 20 mg Fentanyl (Sublimaze Injection -) 50 mcg IVPUSH [id number] PRN PRN Reason: PAIN-PACU ORDER X 4 DOSES ONLY Last Admin: 04/29/18 14:00 Dose: 50 mcg Heparin Sodium (Porcine) (Heparin -) 5,000 unit SQ BID [facility] Last Admin: 05/04/18 09:59 Dose: 5,000 unit Hydromorphone HCl (Dilaudid Vial -) 2 mg IVPB Q4H PRN PRN Reason: PAIN LEVEL 6-10 Last Admin: 05/03/18 22:37 Dose: 2 mg Insulin Aspart (Novolog Vial) 0 units SQ TIDAC [facility]; Protocol Last Admin: 05/04/18 11:30 Dose: Not Given Melatonin (Melatonin) 5 mg PO HS PRN PRN Reason: INSOMNIA Last Admin: 05/03/18 22:44 Dose: 5 mg Metformin HCl (Glucophage -) 500 mg PO DAILY@0700 [facility] Metoprolol Succinate (Toprol Xl -) 25 mg PO DAILY [facility] Last Admin: 05/04/18 11:27 Dose: 25 mg Metoprolol Tartrate (Lopressor Injection -) 5 mg IVPB Q4H PRN PRN Reason: HYPERTENSION Last Admin: 05/03/18 04:17 Dose: 5 mg Ondansetron HCl (Zofran Injection) 4 mg IVPUSH Q6H PRN PRN Reason: NAUSEA AND/OR VOMITING Last Admin: 04/29/18 13:50 Dose: 4 mg Oxycodone HCl (Roxicodone -) 10 mg PO Q3H PRN PRN Reason: PAIN LEVEL 4 - 6 Last Admin: 05/04/18 13:02 Dose: 10 mg - Objective Vital Signs: Vital Signs Temperature 98.7 F 05/04/18 15:22 Pulse Rate 68 05/04/18 15:22 Respiratory Rate 18 05/04/18 15:22 Blood Pressure 177/57 H 05/04/18 15:22 O2 Sat by Pulse Oximetry (%) 98 05/03/18 21:00 Labs: CBC, BMP 05/03/18 06:20 05/04/18 05:30 Assessment/Plan po day #5 Had 2 bowel movement today. Abdominal wound is clean. Dressing changed. Has had 2 bowel movements. Tolerating oral liquids. Will progress diet and discharge home tomorrow.
--- NOTE | 2018-05-04 18:29 | PATH ---
Surgical Pathology Report Patient Name: SOURAV JOHNSON Med. Rec. #: [id number] /Age/Gender: 1950 (Age: 68) / F Account: [id number] Location: [facility] MED/SURG Taken: 04/29/2018 Received: 05/02/2018 Reported: 05/04/2018 Physicians: Parviz Villalta M.D. 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 Electronically Signed Ruth Ann Bah M.D. Gross Description Received in formalin labeled "colostomy," is a 2.7 x 2.0 cm espinosa, elliptical portion of skin with a central os, consistent with a colostomy site. The colostomy displays a 3.5 cm in length portion of bowel adhered to it. The bowel displays a stapled mucosal margin. The mucosa is espinosa with normal folds. A service liaison representative section is submitted in one cassette. /05/02/2018 [facility]/05/02/2018
[2018-05-04] MEDS ORDERED: ATORVASTATIN CA 10 MG TABLET (FP) PO SCH (22:00)
[2018-05-04] MEDS ORDERED: PATIENT'S OWN MEDICATION (NON-FORMULARY) (Simvastatin 5 MG) PO SCH (22:00)
[2018-05-05] MEDS: INSULIN (NOVOLOG) ASPART 100 UNITS/ML 10ML VIAL SQ SCH (06:44)
[2018-05-05] MEDS ORDERED: metFORMIN HCL 500 MG TABLET (FP) PO SCH (07:00)
--- NOTE | 2018-05-05 09:52 | PN ---
Progress Note (short form) - Note Progress Note: OOB has a bm tolerating diet Vital Signs - 24 hr 05/04/18 05/04/18 05/04/18 15:22 15:40 16:30 Temperature 98.7 F 99 F Pulse Rate 68 72 69 Respiratory 18 18 Rate Blood Pressure 177/57 H 161/91 145/55 L O2 Sat by Pulse Oximetry (%) 05/04/18 05/04/18 05/05/18 20:02 21:00 06:00 Temperature 98.8 F 98.9 F Pulse Rate 62 78 Respiratory 18 20 20 Rate Blood Pressure 156/74 146/85 O2 Sat by Pulse 98 Oximetry (%) Current Medications Generic Name Dose Route Start Last Admin Trade Name Freq PRN Reason Stop Dose Admin Atorvastatin Calcium 10 mg 05/04/18 22:00 05/04/18 21:44 Lipitor - PO 10 mg HS [facility] Administration Enalapril Maleate 40 mg 05/05/18 09:53 Vasotec - PO DAILY [facility] Fentanyl 50 mcg 04/29/18 13:37 04/29/18 14:00 Sublimaze Injection - IVPUSH 50 mcg [id number] PRN Administration PAIN-PACU ORDER X 4 DOSES ONLY Heparin Sodium (Porcine) 5,000 unit 04/29/18 22:00 05/05/18 09:56 Heparin - SQ Not Given BID [facility] Hydromorphone HCl 2 mg 05/02/18 15:23 05/03/18 22:37 Dilaudid Vial - IVPB 2 mg Q4H PRN Administration PAIN LEVEL 6-10 Insulin Aspart 0 units 04/30/18 16:30 05/05/18 06:44 [facility] Protocol Melatonin 5 mg 05/03/18 22:32 05/03/18 22:44 Melatonin PO 5 mg HS PRN Administration INSOMNIA Metformin HCl 500 mg 05/05/18 07:00 05/05/18 06:44 Glucophage - PO 500 mg DAILY@0700 [facility] Administration Metoprolol Succinate 25 mg 05/04/18 10:30 05/05/18 09:55 Toprol Xl - PO 25 mg DAILY [facility] Administration Metoprolol Tartrate 5 mg 05/03/18 04:06 05/03/18 04:17 Lopressor Injection - IVPB 5 mg Q4H PRN Administration HYPERTENSION Ondansetron HCl 4 mg 04/29/18 13:37 04/29/18 13:50 Zofran Injection IVPUSH 4 mg Q6H PRN Administration NAUSEA AND/OR VOMITING Oxycodone HCl 10 mg 05/02/18 15:24 05/04/18 13:02 Roxicodone - PO 10 mg Q3H PRN Administration PAIN LEVEL 4 - 6 Laboratory Results - last 24 hr 05/04/18 05/04/18 05/04/18 11:29 16:42 20:18 POC Glucometer 150 122 130 05/05/18 06:43 POC Glucometer 113 S1S2 RRR Oral moist Lungs clear Abd- NT, obese, surgical scars noted, BS better heard today not distended No edema PLAN diet per surgeon lytes normal pt is clinically well tolerating diet has a bm No objection for discharge to home pain control advised smoking cessation Problem List - Problems (1) Diabetes mellitus Code(s): E11.9 - TYPE 2 DIABETES MELLITUS WITHOUT COMPLICATIONS (2) Hypertension Code(s): I10 - ESSENTIAL (PRIMARY) HYPERTENSION (3) Obesity Code(s): E66.9 - OBESITY, UNSPECIFIED Qualifiers: Obesity type: due to excess calories
[2018-05-05] MEDS ORDERED: ENALAPRIL MALEATE 10 MG TABLET (FP) PO SCH (09:53)
[2018-05-05] MEDS: metoPROLOL SUCCINATE 25 MG TAB.SR.24H (FP) PO SCH (09:55)
[2018-05-05] MEDS: HEPARIN NA (PORCINE) 5,000 UNITS/ML 1ML VIAL SQ SCH (09:56)
[2018-05-05 11:53] VITALS: BP 156/87; PULSE 80; TEMP 98.8
== END 2018-05-05 11:46 | disposition home health service (06) | DRG 331 ==
LOC: JSAMEDAYSX 08:01 → EDSTATUS 10:00 → J8W 16:17
PROVIDERS: ADMIT Specialist; ATTEND Specialist
PROC: 0DQL0ZZ Repair Transverse Colon, Open Approach (ICD-10-PCS; 2018-04-29)
PROC: 0DNU0ZZ Release Omentum, Open Approach (ICD-10-PCS; 2018-04-29)
PROC: 0DNW0ZZ Release Peritoneum, Open Approach (ICD-10-PCS; 2018-04-29)
PROC: 0DSL0ZZ Reposition Transverse Colon, Open Approach (ICD-10-PCS; principal; 2018-04-29 10:00)
DX: Z43.3 Encounter for attention to colostomy (principal); I10 Essential (primary) hypertension; E11.9 Type 2 diabetes mellitus without complications; E66.9 Obesity, unspecified; Z68.30 Body mass index [BMI] 30.0-30.9, adult; F17.210 Nicotine dependence, cigarettes, uncomplicated; E78.5 Hyperlipidemia, unspecified; K66.0 Peritoneal adhesions (postprocedural) (postinfection)
CPT/HCPCS: 36415; 80048; 80053; 82962; 85025; 86900; 88304-TC; 90670; 90688; 94760; G0008; G0009; J1644